=== PATIENT | female | born 1965 | race Caucasian/White ===

== ENCOUNTER 2019-05-14 12:47 | Day surgery (SDC) | payer MEDICARE, MEDICAID, SELFPAY ==
[2019-05-09 11:18] VITALS: BMI 60.9
--- NOTE | 2019-05-09 11:30 | ANES.PREANE2 ---
Pre-Anesthetic Assessment Pre-Anesthetic Assessment: Height/Weight: Height 1.6 m Weight 156.036 kg Preop Diagnosis: screening colonscopy Proposed Procedure: Operation Date: 05/14/19 12:45 Proposed Procedures p Colonoscopy 33403 Z86.010(Not Applicable) - Henry Jara MD Social: Packs per day: 1 Pack years: 30 Comment: quit 1 month Exam: Pre-Anes Outpt Exam: alert, oriented x 3, clear to auscultation bilaterally and regular rate & rhythm Airway: Submandibular: WNL Cervical ROM: Other MP: 3 Additional comments: 2 remaining teeth Pulmonary: Pulmonary: COPD and Sleep apnea : Comments: frequency, urgency Metabolic: Metabolic: DM and Morbid obesity Comments: rx'd x 2months Anesthetic Plan: ASA status: 3 Anesthesia: MAC PFSH Anesthesia PFSH: Social History Smoking and tobacco status: former smoker Second hand smoke exposure: No Smoking risk assessment/counseling performed?: No Alcohol intake: never Desire information about substance/drug rehabilitation?: No Counseling given: No Marital status: Data Anesthesia Cardiac Studies: No Data to Display
[2019-05-14 13:03] VITALS: BP 153/110; PULSE 94; RESP 16; TEMP 37.3; O2SAT 95
[2019-05-14 13:08] VITALS: BP 167/101
[2019-05-14 13:17] LABS: Glucose Point of Care 98 mg/dL (70-110)
[2019-05-14] MEDS: sodium chloride 0.9% 1,000 ML 30 ML IV (13:18)
--- NOTE | 2019-05-14 14:17 | P.ANESUD_ITS ---
Pre-Anesthetic Update Pre-Anesthetic Assessment: Date of Surgery/Procedure: 05/14/19 Preop Kassie gnosis: History of colon polyps Proposed Procedure: Operation Date: 05/14/19 14:15 Proposed Procedures p Colonoscopy(Not Applicable) - Henry Jara MD Last Intake: Intake Last Liquid Date 05/13/19 Last Liquid Time 19:00 Last Solid Date 05/12/19 Last Solid Time 17:00 Labs Last 48hrs: Laboratory Results - last 48 hr 05/14/19 13:11 POC Glucose 98 Vitals: Temperature 99.2 F 05/14/19 13:03 Temperature Source Temporal Artery S can 05/14/19 13:03 Pulse Rate 94 05/14/19 13:03 Respiratory Rate 16 05/14/19 13:03 Blood Pressure 167/101 05/14/19 13:08 Blood Pressure Shani n 123 05/14/19 13:08 Pulse Oximetry 95 05/14/19 13:03 Oxygen Delivery Me thod 05/14/19 13:03 Exam: Pre-Anes Outpt Exam: alert, oriented x 3, clear to auscultation bilaterally (lung sounds distant) and regular rate & rhythm Cardiac Studies: No Data to Display
--- NOTE | 2019-05-14 15:06 | W.PM.OPSUD ---
Surgery/Procedure H&P Update DATE OF PROCEDURE: May 14, 2019 DATE H&P PERFORMED: 04/25/19 H&P UPDATE INFORMATION: I have reviewed H&P completed within last 30 days, I have examined patient prior to procedure and No changes to prior documentation PREOP DIAGNOSIS: History of colon polyps PRIMARY INDICATION FOR PROCEDURE: The same PLANNED PROCEDURE: Operation Date: 05/14/19 14:15 Proposed Procedures p Colonoscopy(Not Applicable) - Henry Jara MD
[2019-05-14 16:05] VITALS: BP 143/94; PULSE 102; RESP 14; TEMP 36.1; O2SAT 98
[2019-05-14 16:15] VITALS: BP 152/98; PULSE 93; RESP 18; O2SAT 96
== END 2019-05-14 16:30 | disposition home or self-care (01) ==
PROVIDERS: Family Provider Family Medicine; PCP Family Medicine; Visit Provider Surgery
PROC: 0DJD8ZZ Inspection of Lower Intestinal Tract, Via Natural or Artificial Opening Endoscopic (ICD-10-PCS; CPT 45378; principal; 2019-05-14 14:15)
DX: Z12.11 Encounter for screening for malignant neoplasm of colon (principal); D12.5 Benign neoplasm of sigmoid colon; Z86.010 Personal history of colon polyps; E66.01 Morbid (severe) obesity due to excess calories; Z68.44 Body mass index [BMI] 60.0-69.9, adult; Z79.84 Long term (current) use of oral hypoglycemic drugs; J44.9 Chronic obstructive pulmonary disease, unspecified; E11.9 Type 2 diabetes mellitus without complications; I10 Essential (primary) hypertension; G47.30 Sleep apnea, unspecified
CPT/HCPCS: 45385; 12345; 36416; 82962; 88305; J2704; J7030

== ENCOUNTER 2019-05-19 11:32 | Emergency (ER) | payer MEDICARE, MEDICAID, SELFPAY ==
--- NOTE | 2019-05-19 11:37 | XR_ITS ---
WS: [id number] XR chest 2V* [id number] REASON FOR EXAM: cough FINDINGS: Comparison is made to February 25, 2016. The heart and mediastinal interfaces are normal. The lung lawrence are clear there is no pneumonia, pleural effusion, pulmonary edema, or mass effect. The hilum and apices are normal. Degenerate changes of the thoracic spine. XR/XR chest 2V* [id number] IMPRESSION: No active cardiopulmonary disease.
[2019-05-19 12:36] VITALS: BP 155/104; PULSE 102; RESP 18; TEMP 36.9; O2SAT 92; BMI 60.9
--- NOTE | 2019-05-19 12:46 | ED_ITS ---
HPI - General Adult General: Chief complaint: Upper Respiratory Infection Stated complaint: FEVER, COUGH H/A Time Seen by Provider: 05/19/19 12:40 History of Present Illness: HPI narrative: Patient with sinus tenderness and upper respiratory drainage. Left ear pain has had a cough for the last 3 to 4 days. Is on BiPAP at home. Sats when off BiPAP normally run about 90% which she is doing here. Planes about sinus pressure denies any other problems. Hist ory of multiple upper respiratory infections MD complaint: Sinus infection Onset (ago): day(s) (3) Associated symptoms: Reports cough; Deny chest pain, dyspnea, fevers/chills, headache(s), nausea, rash, short of breath or vomiting Review of Systems Const: Denies: fever, chills or body aches Eyes: Denies: change in vision or blurry vision ENMT: Reports: nasal congestion and other (Sinus pressure); Denies: throat pain Card: Denies: chest pain Resp: Denies: shortness of breath, productive cough or non-productive cough GI: Denies: abdominal pain, nausea or vomiting Musc: Denies: extremity pain Skin/Breast: Denies: rash Neuro: Denies: headache Psych: Denies: anxiety or depression Jaswant/Lymph: Denies: easy bruising PFSH ED PFSH: Social History Smoking and tobacco status: former smoker Second hand smoke exposure: No Smoking risk assessment/counseling performed?: No Alcohol intake: never Desire information about substance/drug rehabilitation?: No Counseling given: No Marital status: Physical Exam Const: COMMON NORMALS: no apparent distress, average body habitus and oriented x3 HENMT: COMMON NORMALS: normocephalic and TM's normal bilaterally HEAD & SCALP: normal to inspection and normocephalic FACE & SINUS: sinus tenderness and other TYMPANIC MEMBRANE: TM's normal bilaterally Eye: COMMON NORMALS: conjunctivae normal GENERAL EYE: normal appearance of both eyes CONJUNCTIVA: Yes conjunctivae normal Neck/C-Spine: COMMON NORMALS: no JVD Chest: COMMONS NORMALS: inspection of chest normal Resp: COMMON NORMALS: normal respiratory effort and clear to auscultation bilaterally AUSCULTATION: clear to auscultation bilaterally Cardio: COMMON NORMALS: no JVD, regular rate and regular rhythm RATE: regular rate RHYTHM: regular rhythm GI: COMMON NORMALS: normal to inspection, nondistended, normoactive bowel sounds Extremity: COMMON NORMALS: normal to inspection and full ROM Neuro: COMMON NORMALS: oriented x3 Course Vital Signs: Vital signs: Vital Signs Temperature 98.4 F 05/19/19 12:36 Pulse Rate 102 H 05/19/19 12:36 Respiratory Rate 18 05/19/19 12:36 Blood Pressure 155/104 05/19/19 12:36 Pulse Oximetry 92 05/19/19 12:36 Discharge Plan Discharge Prescriptions: No Action aripiprazole 15 mg tablet 15 mg PO QDAY RF: 0 duloxetine 60 mg capsule,delayed release(DR/EC) 60 mg PO BID RF: 0 clonazepam [Klonopin] 0.5 mg tablet 0.5 mg PO QDAY RF: 0 metformin 500 mg tablet 500 mg PO QDAY RF: 0 albuterol sulfate [Ventolin HFA] 90 mcg/actuation HFA aerosol inhaler 2 puff INHALATION Q4H PRN (Reason: soa) RF: 0 zonisamide 100 mg capsule 300 mg PO QDAY RF: 0 buspirone 7.5 mg tablet See Rx Instructions PO BID RF: 0 naproxen 500 mg tablet 500 mg PO BID PRN (Reason: Pain) RF: 0 Coding Level of Care Code ED Jewelry Salesperson for Jasmine Pollock
[2019-05-19] MEDS: sulfamethoxazole-trimeth DS 160-800 mg Tablet 1 TAB PO (13:03)
[2019-05-19 13:17] LABS: Influenza A by IFA Negative (Negative); Influenza B by IFA Negative (Negative)
[2019-05-19 13:31] VITALS: BP 150/103; PULSE 91; RESP 20; O2SAT 93
== END 2019-05-19 13:32 | disposition home or self-care (01) ==
PROVIDERS: Emergency Medicine; Emergency Provider Nurse Practitioner Family; Family Provider Family Medicine; PCP Family Medicine
DX: J06.9 Acute upper respiratory infection, unspecified (principal); R50.9 Fever, unspecified; R05 Cough; R51 Headache; H92.02 Otalgia, left ear; R09.81 Nasal congestion; Z87.891 Personal history of nicotine dependence; Z99.89 Dependence on other enabling machines and devices
CPT/HCPCS: 71046; 87804; 99282; 99283

== ENCOUNTER → 2019-07-22 07:57 | Outpatient (BNVA) | payer MEDICARE, MEDICAID, SELFPAY | PROVIDERS: Family Provider Family Medicine; PCP Family Medicine; Visit Provider Psychiatry & Neurology Psychiatry | DX: F41.1 Generalized anxiety disorder (principal); F33.9 Major depressive disorder, recurrent, unspecified; F41.0 Panic disorder [episodic paroxysmal anxiety]; E55.9 Vitamin D deficiency, unspecified | CPT/HCPCS: 99205 ==

== ENCOUNTER → 2019-08-06 08:21 | Outpatient (BNVA) | payer MEDICARE, MEDICAID, SELFPAY | PROVIDERS: Family Provider Family Medicine; PCP Family Medicine; Visit Provider Social Worker | DX: F41.1 Generalized anxiety disorder (principal); F41.0 Panic disorder [episodic paroxysmal anxiety] | CPT/HCPCS: 90832 ==

== ENCOUNTER → 2019-08-12 08:33 | Outpatient (BNVA) | payer MEDICARE, MEDICAID, SELFPAY | PROVIDERS: Family Provider Family Medicine; PCP Family Medicine; Visit Provider Social Worker | DX: F33.9 Major depressive disorder, recurrent, unspecified (principal); F41.1 Generalized anxiety disorder; F41.0 Panic disorder [episodic paroxysmal anxiety]; F43.12 Post-traumatic stress disorder, chronic | CPT/HCPCS: 90834 ==

== ENCOUNTER → 2019-08-20 08:23 | Outpatient (BNVA) | payer MEDICARE, MEDICAID, SELFPAY | PROVIDERS: Family Provider Family Medicine; PCP Family Medicine; Visit Provider Psychiatry & Neurology Psychiatry | DX: F41.1 Generalized anxiety disorder (principal); F43.10 Post-traumatic stress disorder, unspecified; G31.84 Mild cognitive impairment of uncertain or unknown etiology; E55.9 Vitamin D deficiency, unspecified; F41.0 Panic disorder [episodic paroxysmal anxiety]; F33.9 Major depressive disorder, recurrent, unspecified; G47.30 Sleep apnea, unspecified | CPT/HCPCS: 99215 ==

== ENCOUNTER 2019-08-21 09:57 | Outpatient (CLI) | payer MEDICARE, MEDICAID, SELFPAY ==
[2019-08-21 10:28] LABS: Basophils # 0.1 10^3/uL (0.0-0.1); Basophils % 0.9 %; Eosinophils # 0.4 10^3/uL (0.0-0.8); Eosinophils % 4.6 %; Hematocrit 44.2 % (37.0-47.0); Hemoglobin 13.1 g/dL (11.5-15.3); Lymphocytes # 3.2 10^3/uL (0.8-4.8); Lymphocytes % 35.7 %; Mean Corpuscular HGB Conc 29.6 g/dL (30.0-36.0); Mean Corpuscular Hemoglobin 27.9 pg (28.0-34.0); Mean Corpuscular Volume 94.2 fL (81-99); Mean Platelet Volume 10.8 fL (7.4-10.4); Monocytes # 0.6 10^3/uL (0.2-0.9); Monocytes % 6.8 %; Neutrophils # 4.6 10^3/uL (1.8-7.7); Neutrophils % 51.6 %; Nucleated Red Blood Cells % 0 %; Platelet Count 208 10^3/cmm (130-400); Red Blood Count 4.69 10^6/uL (4.1-5.3); White Blood Count 8.9 10^3/uL (4.0-10.0)
[2019-08-21 11:05] LABS: 25 Hydroxy Vitamin D 25 ng/mL (30-100); Alanine Aminotransferase 18 U/L (0-33); Albumin Level 3.4 g/dL (3.5-5.2); Alkaline Phosphatase 109 IU/L (35-105); Anion Gap 15.3 (5-19); Aspartate Amino Transferase 16 U/L (0-32); Blood Urea Nitrogen 15 mg/dL (6-20); Calcium 9.8 mg/dL (8.5-10.5); Carbon Dioxide 22 mmol/L (22-29); Chloride 102 mmol/L (98-107); Chol HDL Ratio 4.41 mg/dL (0.0-4.40); Cholesterol 181 mg/dL (0-200); Glomerular Filtration Rate 57.4 mL/min (90-130); Glucose 101 mg/dL (65-115); HDL Cholesterol 41 mg/dL (60-100); LDL Cholesterol Calculated 114 mg/dL (50-129); LDL HDL Ratio 2.78 RATIO (0.00-3.22); Magnesium 2.2 mg/dL (1.7-2.3); Osmolality Calculated 276 mOsm/kg (285-295); Potassium 4.3 mmol/L (3.5-5.1); Sodium 135 mmol/L (136-145); Thyroid Stimulating Hormone 4.44 uIU/mL (0.27-4.20); Total Bilirubin 0.2 mg/dL (0.15-1.2); Total Protein 7.4 g/dL (6.6-8.7); Triglycerides 128 mg/dL (0-150)
[2019-08-21 11:49] LABS: T3 Free 2.2 PG/ML (2.0-4.4)
[2019-08-22 10:12] LABS: T3 Total 103 ng/dL (76-181)
[2019-08-24 21:01] LABS: Zinc Level, Serum or Plasma 78 mcg/dL (60-130)
[2019-08-25 10:06] LABS: Copper Level 149 mcg/dL (70-175)
== END 2019-08-21 09:58 | disposition home or self-care (01) ==
LOC: LAB 10:02
PROVIDERS: PCP Family Medicine; Visit Provider Psychiatry & Neurology Psychiatry
DX: G31.84 Mild cognitive impairment of uncertain or unknown etiology (principal); E55.9 Vitamin D deficiency, unspecified; F43.10 Post-traumatic stress disorder, unspecified; F41.1 Generalized anxiety disorder; F41.0 Panic disorder [episodic paroxysmal anxiety]; F33.9 Major depressive disorder, recurrent, unspecified; G47.30 Sleep apnea, unspecified
CPT/HCPCS: 36415; 80053; 80061; 82306; 82525; 82746; 83735; 84439; 84443; 84480; 84481; 84630; 85025

== ENCOUNTER → 2019-08-26 08:16 | Outpatient (BNVA) | payer MEDICARE, MEDICAID, SELFPAY | PROVIDERS: PCP Family Medicine; Visit Provider Social Worker | DX: F33.9 Major depressive disorder, recurrent, unspecified (principal); F41.1 Generalized anxiety disorder; F41.0 Panic disorder [episodic paroxysmal anxiety]; F43.12 Post-traumatic stress disorder, chronic | CPT/HCPCS: 90834 ==

== ENCOUNTER → 2019-09-06 08:15 | Outpatient (BNVA) | payer MEDICARE, MEDICAID, SELFPAY | PROVIDERS: PCP Family Medicine; Visit Provider Psychiatry & Neurology Psychiatry | DX: F33.1 Major depressive disorder, recurrent, moderate (principal); F41.1 Generalized anxiety disorder; G47.00 Insomnia, unspecified | CPT/HCPCS: 99215 ==

== ENCOUNTER → 2019-10-08 07:52 | Outpatient (BNVA) | payer MEDICARE, MEDICAID, SELFPAY | PROVIDERS: PCP Family Medicine; Visit Provider Nurse Practitioner | DX: F33.9 Major depressive disorder, recurrent, unspecified (principal); F41.1 Generalized anxiety disorder; F41.0 Panic disorder [episodic paroxysmal anxiety]; F43.12 Post-traumatic stress disorder, chronic | CPT/HCPCS: 99204 ==

== ENCOUNTER → 2019-10-24 07:33 | Outpatient (BNVA) | payer MEDICARE, MEDICAID, SELFPAY | PROVIDERS: PCP Family Medicine; Visit Provider Nurse Practitioner | DX: F41.1 Generalized anxiety disorder (principal); F41.0 Panic disorder [episodic paroxysmal anxiety]; F33.9 Major depressive disorder, recurrent, unspecified; F33.2 Major depressive disorder, recurrent severe without psychotic features | CPT/HCPCS: 99214 ==

== ENCOUNTER → 2019-11-21 07:07 | Outpatient (BNVA) | payer MEDICARE, MEDICAID, SELFPAY | PROVIDERS: PCP Family Medicine; Visit Provider Nurse Practitioner | DX: F33.9 Major depressive disorder, recurrent, unspecified (principal); F41.1 Generalized anxiety disorder; F41.0 Panic disorder [episodic paroxysmal anxiety] | CPT/HCPCS: 99213 ==

== ENCOUNTER → 2020-01-08 07:49 | Outpatient (BNVA) | payer MEDICARE, MEDICAID, SELFPAY ==
[2019-12-11 11:57] VITALS: BP 106/60; BMI 63.9
== END ==
PROVIDERS: PCP Family Medicine; Visit Provider Nurse Practitioner
DX: F33.9 Major depressive disorder, recurrent, unspecified (principal); F41.1 Generalized anxiety disorder; F41.0 Panic disorder [episodic paroxysmal anxiety]
CPT/HCPCS: 99214

== ENCOUNTER → 2020-02-05 07:37 | Outpatient (BNVA) | payer MEDICARE, MEDICAID, SELFPAY ==
[2019-12-11 11:57] VITALS: BP 106/60; BMI 63.9
== END ==
PROVIDERS: PCP Family Medicine; Visit Provider Nurse Practitioner
DX: F33.9 Major depressive disorder, recurrent, unspecified (principal); F41.1 Generalized anxiety disorder; F41.0 Panic disorder [episodic paroxysmal anxiety]
CPT/HCPCS: 99213

== ENCOUNTER 2020-04-27 10:28 | Outpatient (CLI) | payer MEDICARE, MEDICAID, SELFPAY ==
[2019-12-11 11:57] VITALS: BP 106/60; BMI 63.9
--- NOTE | 2020-04-27 10:36 | MM_ITS ---
WS: [id number] BILATERAL DIGITAL SCREENING MAMMOGRAPHY WITH CAD CLINICAL INFORMATION: SCREENING HISTORY: Screening mammogram. No current complaints. COMPARISON: TECHNIQUE: Bilateral CC and MLO views. FINDINGS: Scattered fibroglandular densities bilaterally. No suspicious focal mass, asymmetry, calcifications, or architectural distortion. No evidence of malignancy. Punctate calcifications. MM/[place] [id number] IMPRESSION: BI-RADS: 2-Benign FOLLOW UP: 1 Year Follow-up Recommend return to annual screening mammography.
== END 2020-04-27 10:29 | disposition home or self-care (01) ==
PROVIDERS: PCP Family Medicine; Visit Provider Family Medicine
DX: Z12.31 Encounter for screening mammogram for malignant neoplasm of breast (principal)
CPT/HCPCS: 77067

== ENCOUNTER → 2020-05-04 07:57 | Outpatient (BNVA) | payer MEDICARE, MEDICAID, SELFPAY ==
[2019-12-11 11:57] VITALS: BP 106/60; BMI 63.9
== END ==
PROVIDERS: PCP Family Medicine; Visit Provider Nurse Practitioner
DX: F33.9 Major depressive disorder, recurrent, unspecified (principal); F41.1 Generalized anxiety disorder; F41.0 Panic disorder [episodic paroxysmal anxiety]
CPT/HCPCS: 99214

== ENCOUNTER → 2020-05-28 11:44 | Outpatient (BNVA) | payer OTHER, MEDICAID, SELFPAY ==
[2019-12-11 11:57] VITALS: BP 106/60; BMI 63.9
== END ==
PROVIDERS: PCP Family Medicine; Visit Provider Internal Medicine
DX: R76.8 Other specified abnormal immunological findings in serum (principal); M25.50 Pain in unspecified joint; Z11.59 Encounter for screening for other viral diseases; Z79.899 Other long term (current) drug therapy; Z87.891 Personal history of nicotine dependence
CPT/HCPCS: 99214

== ENCOUNTER 2020-06-03 10:29 | Outpatient (CLI) | payer MEDICARE, MEDICAID, SELFPAY ==
[2019-12-11 11:57] VITALS: BP 106/60; BMI 63.9
--- NOTE | 2020-06-03 10:46 | XR_ITS ---
WS: [id number] Left foot, 2 views, 06/03/2020 Clinical Data: M25.50 - Pain in unspecified joint Comparison: None. Findings: No fractures or dislocations are seen. No bone destruction or erosion is noted. There is a small buni on at the head of the left first metatarsal.There is a plantar spur and an Achilles spur. XR/XR foot LT 2V [id number] Impression: Small bunion at head of left first metatarsal.
--- NOTE | 2020-06-03 10:46 | XR_ITS ---
WS: [id number] Right hand, 2 views, 06/03/2020 Clinical Data: R76.8 - Other specified abnormal immunological findings in serum Comparison: None. Findings: No fractures or dislocations are seen. The soft tissues are unremarkable. The joint space s are normal No periarticular calcifications or demineralization is seen. XR/XR hand RT 2V [id number] Impression: Negative right hand.
--- NOTE | 2020-06-03 10:46 | XR_ITS ---
WS: [id number] Right foot, 2 views, 06/03/2020 Clinical Data: M25.50 - Pain in unspecified joint Comparison: None. Findings: No fractures or dislocations are seen. No bone destruction or erosion is noted. The joint spaces and soft tissues are normal. There is a plantar spur and an Achilles spur. XR/XR foot RT 2V [id number] Impression: Negative right foot.
--- NOTE | 2020-06-03 10:46 | XR_ITS ---
WS: [id number] Left hand, 2 views, 06/03/2020 Clinical Data: R76.8 - Other specified abnormal immunological findings in serum Comparison: Left hand, 02/10/2009. Findings: No fractures or dislocations are seen. The soft tissues are unremarkable. The joint spaces are normal No periarticular demineralization or calcifications are seen. XR/XR hand LT 2V [id number] Impression: Negative left hand.
[2020-06-03 12:17] LABS: Basophils # 0.1 10^3/uL (0.0-0.1); Eosinophils # 0.4 10^3/uL (0.0-0.8); Eosinophils % 3.5 %; Hematocrit 46.1 % (37.0-47.0); Hemoglobin 13.7 g/dL (11.5-15.3); Lymphocytes # 2.5 10^3/uL (0.8-4.8); Lymphocytes % 20.2 %; Mean Corpuscular HGB Conc 29.7 g/dL (30.0-36.0); Mean Corpuscular Hemoglobin 29.1 pg (28.0-34.0); Mean Corpuscular Volume 98.1 fL (81-99); Mean Platelet Volume 10.5 fL (7.4-10.4); Monocytes # 0.7 10^3/uL (0.2-0.9); Monocytes % 5.7 %; Neutrophils # 8.54 10^3/uL (1.8-7.7); Neutrophils % 68.9 %; Nucleated Red Blood Cells % 0 %; Platelet Count 282 10^3/cmm (130-400); Red Cell Distribution Width 14.8 % (12.1-15.1); White Blood Count 12.4 10^3/uL (4.0-10.0)
[2020-06-03 12:52] LABS: Alanine Aminotransferase 21 U/L (0-33); Albumin Level 3.3 g/dL (3.5-5.2); Alkaline Phosphatase 100 IU/L (35-105); Blood Urea Nitrogen 10 mg/dL (6-20); C Reactive Protein 27.9 mg/L (0.0-4.9); Calcium 9.3 mg/dL (8.5-10.5); Carbon Dioxide 29 mmol/L (22-29); Chloride 105 mmol/L (98-107); Globulin 3.6 g/dL (1.3-4.6); Glomerular Filtration Rate 73.9 mL/min (90-130); Glucose 114 mg/dL (65-115); Osmolality Calculated 292 mOsm/kg (285-295); Sodium 141 mmol/L (136-145); Total Bilirubin 0.2 mg/dL (0.15-1.2); Total Protein 6.9 g/dL (6.6-8.7)
[2020-06-03 12:56] LABS: Anion Gap 11.6 (5-19); Potassium 4.6 mmol/L (3.5-5.1)
[2020-06-03 12:57] LABS: Aspartate Amino Transferase 18 U/L (0-32)
[2020-06-03 13:23] LABS: Erythrocyte Sedimentation Rate 45 mm/hr (0-15)
[2020-06-03 14:15] LABS: Hepatitis B Core AB, Total Non-Reactive (Nonreactive); Hepatitis B Surface Antigen Non-Reactive (Nonreactive); Hepatitis C Virus Antibody Non-Reactive (Nonreactive)
[2020-06-04 13:42] LABS: Cyclic Citrullinated Peptide <16 UNITS
== END 2020-06-03 10:30 | disposition home or self-care (01) ==
PROVIDERS: PCP Family Medicine; Visit Provider Internal Medicine
DX: M25.50 Pain in unspecified joint (principal); R76.8 Other specified abnormal immunological findings in serum; Z51.81 Encounter for therapeutic drug level monitoring; D86.9 Sarcoidosis, unspecified; Z11.59 Encounter for screening for other viral diseases
CPT/HCPCS: 36415; 73120; 73620; 80053; 85025; 85651; 86140; 86431; 86704; 86803; 87340

== ENCOUNTER → 2020-07-29 08:00 | Outpatient (BNVA) | payer MEDICARE, MEDICAID, SELFPAY ==
[2019-12-11 11:57] VITALS: BP 106/60; BMI 63.9
== END ==
PROVIDERS: PCP Family Medicine; Visit Provider Nurse Practitioner
DX: F33.9 Major depressive disorder, recurrent, unspecified (principal); F41.1 Generalized anxiety disorder; F41.0 Panic disorder [episodic paroxysmal anxiety]
CPT/HCPCS: 99214

== ENCOUNTER → 2020-10-21 07:09 | Outpatient (BNVA) | payer MEDICARE, MEDICAID, SELFPAY ==
[2019-12-11 11:57] VITALS: BP 106/60; BMI 63.9
== END ==
PROVIDERS: PCP Family Medicine; Visit Provider Nurse Practitioner
DX: F33.9 Major depressive disorder, recurrent, unspecified (principal); F41.1 Generalized anxiety disorder; F41.0 Panic disorder [episodic paroxysmal anxiety]
CPT/HCPCS: 99214

== ENCOUNTER → 2020-11-04 10:24 | Outpatient (BNVA) | payer MEDICARE, MEDICAID, SELFPAY ==
[2019-12-11 11:57] VITALS: BP 106/60; BMI 63.9
== END ==
PROVIDERS: PCP Family Medicine; Visit Provider Internal Medicine
DX: M05.9 Rheumatoid arthritis with rheumatoid factor, unspecified (principal); M25.50 Pain in unspecified joint; R70.0 Elevated erythrocyte sedimentation rate; R76.8 Other specified abnormal immunological findings in serum; Z79.899 Other long term (current) drug therapy
CPT/HCPCS: 36415; 80053; 85025; 86140

== ENCOUNTER → 2020-11-11 10:13 | Outpatient (BNVA) | payer MEDICARE, MEDICAID, SELFPAY ==
[2019-12-11 11:57] VITALS: BP 106/60; BMI 63.9
== END ==
PROVIDERS: PCP Family Medicine; Visit Provider Internal Medicine
DX: M05.9 Rheumatoid arthritis with rheumatoid factor, unspecified (principal); R70.0 Elevated erythrocyte sedimentation rate; Z87.891 Personal history of nicotine dependence
CPT/HCPCS: 99214

== ENCOUNTER → 2020-12-02 07:20 | Outpatient (BNVA) | payer MEDICARE, MEDICAID, SELFPAY ==
[2019-12-11 11:57] VITALS: BP 106/60; BMI 63.9
== END ==
PROVIDERS: PCP Family Medicine; Visit Provider Nurse Practitioner
DX: F33.9 Major depressive disorder, recurrent, unspecified (principal); F41.1 Generalized anxiety disorder; F41.0 Panic disorder [episodic paroxysmal anxiety]
CPT/HCPCS: 99214

== ENCOUNTER → 2021-04-01 07:39 | Outpatient (BNVA) | payer MEDICARE, MEDICAID, SELFPAY ==
[2019-12-11 11:57] VITALS: BP 106/60; BMI 63.9
== END ==
PROVIDERS: PCP Family Medicine; Visit Provider Nurse Practitioner
DX: F33.9 Major depressive disorder, recurrent, unspecified (principal); F41.1 Generalized anxiety disorder; F41.0 Panic disorder [episodic paroxysmal anxiety]
CPT/HCPCS: 99214

== ENCOUNTER 2021-04-17 11:41 | Outpatient (CLI) | payer MEDICARE, MEDICAID, SELFPAY ==
[2019-12-11 11:57] VITALS: BP 106/60; BMI 63.9
[2021-04-17 12:54] LABS: Basophils # 0.1 10^3/uL (0.0-0.1); Basophils % 1.1 %; Eosinophils # 0.4 10^3/uL (0.0-0.8); Eosinophils % 4.8 %; Hematocrit 46.2 % (37.0-47.0); Hemoglobin 14.1 g/dL (11.5-15.3); Lymphocytes # 2.2 10^3/uL (0.8-4.8); Mean Corpuscular HGB Conc 30.5 g/dL (30.0-36.0); Mean Corpuscular Hemoglobin 29.5 pg (28.0-34.0); Mean Corpuscular Volume 96.7 fl (81-99); Mean Platelet Volume 11.3 fL (7.4-10.4); Monocytes # 0.5 10^3/uL (0.2-0.9); Monocytes % 6.5 %; Neutrophils % 60.9 %; Nucleated Red Blood Cells % 0 %; Platelet Count 198 10^3/cmm (130-400); Red Blood Count 4.78 10^6/uL (4.1-5.3); Red Cell Distribution Width 14.6 % (12.1-15.1); White Blood Count 8.4 10^3/uL (4.0-10.0)
[2021-04-17 13:17] LABS: Erythrocyte Sedimentation Rate 42 mm/hr (0-15)
[2021-04-17 13:18] LABS: Alanine Aminotransferase 16 U/L (0-33); Albumin Level 3.7 g/dL (3.5-5.2); Alkaline Phosphatase 87 IU/L (35-105); Aspartate Amino Transferase 12 U/L (0-32); Blood Urea Nitrogen 12 mg/dL (6-20); C Reactive Protein 19.7 mg/L (0.0-4.9); Calcium 8.6 mg/dL (8.5-10.5); Carbon Dioxide 27 mmol/L (22-29); Chloride 103 mmol/L (98-107); Glomerular Filtration Rate 56.9 mL/min (90-130); Glucose 90 mg/dL (65-115); Osmolality Calculated 289 mOsm/kg (285-295); Sodium 140 mmol/L (136-145); Total Bilirubin 0.2 mg/dL (0.15-1.2); Total Protein 6.7 g/dL (6.6-8.7)
== END 2021-04-17 11:42 | disposition home or self-care (01) ==
PROVIDERS: PCP Family Medicine; Visit Provider Internal Medicine
DX: M05.9 Rheumatoid arthritis with rheumatoid factor, unspecified (principal); M25.50 Pain in unspecified joint; R76.8 Other specified abnormal immunological findings in serum; Z79.899 Other long term (current) drug therapy
CPT/HCPCS: 80053; 85025; 85651; 86140

== ENCOUNTER → 2021-04-28 10:32 | Outpatient (BNVA) | payer MEDICARE, MEDICAID, SELFPAY ==
[2019-12-11 11:57] VITALS: BP 106/60; BMI 63.9
== END ==
PROVIDERS: PCP Family Medicine; Visit Provider Internal Medicine
DX: M05.9 Rheumatoid arthritis with rheumatoid factor, unspecified (principal); R70.0 Elevated erythrocyte sedimentation rate; Z11.1 Encounter for screening for respiratory tuberculosis; Z87.891 Personal history of nicotine dependence
CPT/HCPCS: 99214

== ENCOUNTER 2021-05-15 11:40 | Outpatient (CLI) | payer MEDICARE, MEDICAID, SELFPAY ==
[2019-12-11 11:57] VITALS: BP 106/60; BMI 63.9
[2021-05-18 13:33] LABS: Quantiferon Mitogen 8.76 IU/mL; Quantiferon Nil 0.17 IU/mL; Quantiferon Plus TB1 0.13 IU/mL; Quantiferon TB Gold NEGATIVE (NEGATIVE)
== END 2021-05-15 11:41 | disposition home or self-care (01) ==
PROVIDERS: PCP Family Medicine; Visit Provider Internal Medicine
DX: M05.9 Rheumatoid arthritis with rheumatoid factor, unspecified (principal); M25.50 Pain in unspecified joint; R70.0 Elevated erythrocyte sedimentation rate; Z11.1 Encounter for screening for respiratory tuberculosis
CPT/HCPCS: 36415; 86480

== ENCOUNTER → 2021-06-16 07:48 | Outpatient (BNVA) | payer MEDICARE, MEDICAID, SELFPAY ==
[2019-12-11 11:57] VITALS: BP 106/60; BMI 63.9
== END ==
PROVIDERS: PCP Family Medicine; Visit Provider Nurse Practitioner
DX: F33.9 Major depressive disorder, recurrent, unspecified (principal); F41.1 Generalized anxiety disorder; F41.0 Panic disorder [episodic paroxysmal anxiety]
CPT/HCPCS: 99214

== ENCOUNTER 2021-07-15 09:26 | Outpatient (CLI) | payer MEDICARE, MEDICAID, SELFPAY ==
[2019-12-11 11:57] VITALS: BP 106/60; BMI 63.9
[2021-07-15 10:34] LABS: Albumin Level 3.9 g/dL (3.5-5.2); Alkaline Phosphatase 96 IU/L (35-105); Blood Urea Nitrogen 9 mg/dL (6-20); Calcium 9.5 mg/dL (8.5-10.5); Carbon Dioxide 26 mmol/L (22-29); Chloride 102 mmol/L (98-107); Globulin 3.4 g/dL (1.3-4.6); Glomerular Filtration Rate 73.7 mL/min (90-130); Glucose 107 mg/dL (65-115); Osmolality Calculated 285 mOsm/kg (285-295); Sodium 138 mmol/L (136-145); Total Bilirubin 0.3 mg/dL (0.15-1.2); Total Protein 7.3 g/dL (6.6-8.7)
[2021-07-15 10:37] LABS: Anion Gap 14.4 (5-19); Aspartate Amino Transferase 28 U/L (0-32); Potassium 4.4 mmol/L (3.5-5.1)
[2021-07-15 10:38] LABS: Alanine Aminotransferase 32 U/L (0-33)
== END 2021-07-15 09:27 | disposition home or self-care (01) ==
PROVIDERS: PCP Family Medicine; Visit Provider Internal Medicine
DX: M05.9 Rheumatoid arthritis with rheumatoid factor, unspecified (principal); R76.8 Other specified abnormal immunological findings in serum; Z79.899 Other long term (current) drug therapy
CPT/HCPCS: 80053; 85025; 86140

== ENCOUNTER → 2021-07-19 13:30 | Outpatient (BNVA) | payer MEDICARE, MEDICAID, SELFPAY ==
[2019-12-11 11:57] VITALS: BP 106/60; BMI 63.9
== END ==
PROVIDERS: PCP Family Medicine; Visit Provider Internal Medicine
DX: M05.9 Rheumatoid arthritis with rheumatoid factor, unspecified (principal); R79.82 Elevated C-reactive protein (CRP); R70.0 Elevated erythrocyte sedimentation rate; R76.8 Other specified abnormal immunological findings in serum; Z79.899 Other long term (current) drug therapy; Z87.891 Personal history of nicotine dependence
CPT/HCPCS: 99213; 99214

== ENCOUNTER 2021-09-02 10:20 | Outpatient (CLI) | payer MEDICARE, MEDICAID, SELFPAY ==
[2019-12-11 11:57] VITALS: BP 106/60; BMI 63.9
--- NOTE | 2021-09-02 10:37 | MM_ITS ---
WS: [id number] VIEWS: MLO and CC views both breasts. 3D digital tomosynthesis is also included in this exam. Comparison made with prior exam of 07/28/2014, 07/31/2015, 08/23/2016, 03/07/2019, 04/27/2020.. Findings: No discrete mass, architectural distortion or suspicious calcification identified. Significant skin t hickening and edema along the lateral aspect of the right breast seen best on the cc view. This may r epresent inflammatory or infectious process however inflammatory breast cancer could have this appear ance. Careful physical examination of this area would be indicated. If the patient does not respond t o conservative management after a short trial then skin biopsy may be necessary for definitive evalua tion. The left breast was unremarkable.The breasts are fatty. MM/[place] [id number] Impression: BI-RADS: 0-Incomplete: Need additional imaging evaluation FOLLOW-UP: See Report This mammogram was also analyzed by the Computer Aided Detection System R2 Imag e Engraver Tender.
== END 2021-09-02 10:21 | disposition home or self-care (01) ==
LOC: RAD 10:24
PROVIDERS: PCP Family Medicine; Visit Provider Family Medicine
DX: Z12.31 Encounter for screening mammogram for malignant neoplasm of breast (principal)
CPT/HCPCS: 77063; 77067

== ENCOUNTER → 2021-09-16 10:39 | Outpatient (BNVA) | payer MEDICARE, MEDICAID, SELFPAY ==
[2019-12-11 11:57] VITALS: BP 106/60; BMI 63.9
== END ==
PROVIDERS: PCP Family Medicine; Visit Provider Nurse Practitioner
DX: F41.1 Generalized anxiety disorder (principal); F41.0 Panic disorder [episodic paroxysmal anxiety]; F33.9 Major depressive disorder, recurrent, unspecified
CPT/HCPCS: 99214

== ENCOUNTER → 2021-10-28 11:36 | Outpatient (BNVA) | payer MEDICARE, MEDICAID, SELFPAY ==
[2019-12-11 11:57] VITALS: BP 106/60; BMI 63.9
== END ==
PROVIDERS: PCP Family Medicine; Visit Provider Internal Medicine
DX: M05.9 Rheumatoid arthritis with rheumatoid factor, unspecified (principal); R70.0 Elevated erythrocyte sedimentation rate
CPT/HCPCS: 99213; 99214

== ENCOUNTER → 2021-11-03 13:17 | Outpatient (BNVA) | payer MEDICARE, MEDICAID, SELFPAY ==
[2019-12-11 11:57] VITALS: BP 106/60; BMI 63.9
== END ==
PROVIDERS: PCP Family Medicine; Visit Provider Surgery
DX: R92.8 Other abnormal and inconclusive findings on diagnostic imaging of breast (principal); M05.9 Rheumatoid arthritis with rheumatoid factor, unspecified; M25.50 Pain in unspecified joint; R70.0 Elevated erythrocyte sedimentation rate
CPT/HCPCS: 72040; 80053; 85025; 99203

== ENCOUNTER 2022-03-01 10:45 | Outpatient (CLI) | payer MEDICARE, MEDICAID, SELFPAY ==
[2019-12-11 11:57] VITALS: BP 106/60; BMI 63.9
--- NOTE | 2022-03-01 11:23 | MM_ITS ---
WS: [id number] Right breast diagnostic 3D tomosynthesis digital mammogram, 03/01/2022 Clinical Data: RASH/6 MO F/U Comparison: 09/02/2021, 04/27/2020, 03/07/2019, 08/23/2016, 07/31/2015, 01/28/2015, 07/28/2014, 06/16/2014, 02/24. Findings: The lateral skin thickening of the right breast has diminished. There is subcutaneous edema adjacent to the skin thickening but this has also diminished. No spiculated masses or clustered calcifications are seen. There is an intramammary lymph node. MM/[place] [id number] Impression: 1. Decrease in skin thickness of lateral right breast. 2. Partial clearing of adjacent right lateral breast edema. 3. Recommend return to annual screening mammograms and clinical follow-up by Dr Zac Jara. BIRADS: 2-Benign FOLLOW UP: 1 Year Follow-up The CAD die drawing checker was used.
== END 2022-03-01 10:46 | disposition home or self-care (01) ==
LOC: RAD 10:50
PROVIDERS: PCP Family Medicine; Visit Provider Surgery
DX: R21 Rash and other nonspecific skin eruption (principal); R92.8 Other abnormal and inconclusive findings on diagnostic imaging of breast; R60.0 Localized edema
CPT/HCPCS: 77061; G0279

== ENCOUNTER → 2022-03-09 10:22 | Outpatient (BNVA) | payer MEDICARE, MEDICAID, SELFPAY ==
[2019-12-11 11:57] VITALS: BP 106/60; BMI 63.9
== END ==
PROVIDERS: PCP Family Medicine; Visit Provider Surgery
DX: R92.8 Other abnormal and inconclusive findings on diagnostic imaging of breast (principal)
CPT/HCPCS: 99212

== ENCOUNTER 2022-05-16 16:20 | Emergency (ER) | payer MEDICARE, MEDICAID, SELFPAY ==
[2019-12-11 11:57] VITALS: BP 106/60; BMI 63.9
[2022-05-16 16:31] VITALS: BP 151/106; PULSE 84; RESP 18; TEMP 36.3; O2SAT 92
--- NOTE | 2022-05-16 19:03 | CTR_ITS ---
PROCEDURE INFORMATION: Exam: CT Abdomen And Pelvis Without Contrast Exam date and time: 05/16/2022 7:16 PM Age: 57 years old Clinical indication: Abdominal pain; Generalized; Prior surgery; Surgery type: Csection x 2. Total hysto. Patient HX: C/O persistent diffuse abd pain x 3 weeks. TECHNIQUE: Imaging protocol: Computed tomography of the abdomen and pelvis without contrast. Radiation optimization: All CT scans at this facility use at least one of these dose optimization techniques: automated exposure control; mA and/or kV adjustment per patient size (includes targeted exams where dose is matched to clinical indication); or iterative reconstruction. Other protocol: This patient has received 0 known CTs and 0 known cardiac nuclear medicine studies in the 12 months prior to the current study. COMPARISON: CR XR chest 2V* [id number] 05/19/2019 11:53 AM RADIATION DOSE METRICS: Total DLP (mGy-cm): 1576.63 FINDINGS: Liver: Normal. No mass. Gallbladder and bile ducts: Normal. No calcified stones. No ductal dilation. Pancreas: Normal. No ductal dilation. Spleen: Normal. No splenomegaly. Adrenal glands: Normal. No mass. Kidneys and ureters: In the lower pole of the right kidney there is a 3.0 cm fat containing mass consistent with an angiomyolipoma. Additional 13 mm anterior right lower pole isodense renal lesion most likely a complex cyst. Stomach and bowel: Unremarkable. No obstruction. No mucosal thickening. Appendix: No evidence of appendicitis. Intraperitoneal space: Unremarkable. No free air. No significant fluid collection. Vasculature: Unremarkable. No abdominal aortic aneurysm. Lymph nodes: Unremarkable. No enlarged lymph nodes. Urinary bladder: Unremarkable as visualized. Reproductive: Hysterectomy. Bones/joints: Unremarkable. No acute fracture. Soft tissues: Inferior ventral abdominal wall hernia containing nonobstructed loops of small bowel and fat. Other findings: Study limited by body habitus. CT/CT abdomen pelvis wo con [id number] IMPRESSION: 1. Inferior ventral abdominal wall hernia containing nonobstructed loops of small bowel and fat. 2. 3 cm mass containing mass lower pole of the right kidney consistent with angiomyolipoma.
--- NOTE | 2022-05-16 19:08 | W.ED.ABDPA2 ---
HPI - Abdominal Pain General: Chief Complaint: Abdominal Pain Stated Complaint: abd pain/headache Time Seen by Provider: 05/16/22 18:33 Source: patient Mode of arrival: ambulatory Limitations: no limitations History of Present Illness: 57-year-old female states over the last 3 weeks has been having abdominal pain. States she is states she been having a lot of gas and burping and the pain is worse with eating she was recently started on Prilosec but she has had no improvement she rates her pain a 7 out of 10 currently. Denies any chest pain denies any fever denies any vomiting or diarrhea. Associated Symptoms: Denies chills, dysuria and fever(s) Review of Systems Const: Denies: fever(s), chills, body aches or change in appetite Eyes: Denies: blurry vision or eye discomfort ENMT: Denies: throat pain or dental pain Card: Denies: chest pain Resp: Denies: dyspnea GI: Reports: abdominal pain : Denies: dysuria Musc: Denies: neck pain or back pain Skin/Breast: Denies: rash Neuro: Denies: headache(s) Psych: Denies: depression Jaswant/Lymph: Denies: easy bruising All/Imm: Denies: urticaria PFSH ED PFSH: Medical History Abnormal mammogram of both breasts Actinic keratosis Anxiety Borderline personality disorder COPD (chronic obstructive pulmonary disease) Depression Diabetes Fibromyalgia Generalized anxiety disorder with panic attacks Hyperglycemia Hypertension Obesity Psychiatric care PTSD (post-traumatic stress disorder) Sleep apnea Surgical History History of 1993 and 1989 History of colonoscopy History of hysterectomy 6 years ago. Hx of polyps Hx of external ear surgery Family History Father Alzheimer disease Sister Asthma Family/Other Cancer Aunt, Colon Mother Cancer Melanoma Congestive heart failure Father Cancer Melanoma Family/Other Cancer Uncle, Prostate Brother Diabetes Other Borderline personality disorder Social History Smoking and tobacco status: current every day smoker (half a pack ) cigarettes Packs smoked per day: 0.5 [ Other cigarette details: been smoking 2 months] Second hand smoke exposure: No Smoking risk assessment/counseling performed?: No Alcohol intake: current Alcohol intake frequency: holidays/special occasions only Desire information about substance/drug rehabilitation?: No Counseling given: No Household members: spouse Marital status: Current gender identity: Female Physical Exam Const: COMMON NORMALS: no acute distress, patient oriented x3 and healthy appearing HENMT: COMMON NORMALS: normocephalic and atraumatic HEAD & SCALP: normocephalic and atraumatic Eye: COMMON NORMALS: Equal, round and reactive pupils present and EOMs intact bilaterally PUPIL: Yes Equal, round and reactive pupils present Neck/C-Spine: COMMON NORMALS: full ROM and supple Chest: COMMONS NORMALS: normal inspection of the chest and normal palpation of entire chest wall Resp: COMMON NORMALS: normal respiratory effort, No retractions, No use of accessory muscles and clear to auscultation bilaterally AUSCULTATION: clear to auscultation bilaterally Cardio: COMMON NORMALS: regular rate, regular rhythm and No murmurs present (Cardio) RATE: regular rate RHYTHM: regular rhythm GI: COMMON NORMALS: Normal to inspection, nondistended, normoactive bowel sounds present, Soft to palpation, non-tender and no masses PALPATION: Yes Soft to palpation Extremity: COMMON NORMALS: normal to inspection and full ROM Neuro: COMMON NORMALS: patient oriented x3, moves all extremities and no focal motor deficits Psych: COMMON NORMALS: mental status grossly normal, Normal thought process present and cooperative THOUGHT PROCESS: Normal thought process present Skin: COMMON NORMALS: no rashes or lesions noted and no wounds GENERAL SKIN EXAM: no rashes or lesions noted Course Vital Signs: Vital signs: Vital Signs Temperature 97.3 F L 05/16/22 16:31 Pulse Rate 84 05/16/22 16:31 Respiratory Rate 18 05/16/22 16:31 Blood Pressure 151/106 05/16/22 16:31 Pulse Oximetry 92 05/16/22 16:31 Oxygen Delivery Me thod 05/16/22 16:31 MDM - Abdominal Pain Medical Decision Making Patient presents here with abdominal pain likely gastritis she is continue her Prilosec her CT shows a hernia here with no signs of obstruction or strangulation we will get her follow-up with surgery she is return to the ER if worsening she understands agrees plan. Lab Data 05/16/22 19:38 02/20/23 19:38 Labs/Radiology: Radiology Impressions Abdomen/Pelvis CT 05/16/22 19:03 IMPRESSION: 1. Inferior ventral abdominal wall hernia containing nonobstructed loops of small bowel and fat. 2. 3 cm mass containing mass lower pole of the right kidney consistent with angiomyolipoma. Laboratory Results WBC 8.0 10^3/uL (4.0-10.0) 05/16/22 19:38 RBC 4.55 10^6/uL (4.1-5.3) 05/16/22 19:38 Hgb 14.1 g/dL (11.5-15.3) 05/16/22 19:38 Hct 45.9 % (37.0-47.0) 05/16/22 19:38 MCV 100.9 fl (81-99) H 05/16/22 19:38 MCH 31.0 pg (28.0-34.0) 05/16/22 19:38 MCHC 30.7 g/dL (30.0-36.0) 05/16/22 19:38 RDW 14.4 % (12.1-15.1) 05/16/22 19:38 Plt Count 246 10^3/cmm (130-400) 05/16/22 19:38 MPV 10.8 fL (7.4-10.4) H 05/16/22 19:38 Neut % (Auto) 57.2 % 05/16/22 19:38 Lymph % (Auto) 30.1 % 05/16/22 19:38 Mcclain % (Auto) 7.4 % 05/16/22 19:38 Eos % (Auto) 4.0 % 05/16/22 19:38 Baso % (Auto) 0.9 % 05/16/22 19:38 Neut # (Auto) 4.56 10^3/uL (1.8-7.7) 05/16/22 19:38 Lymph # (Auto) 2.4 10^3/uL (0.8-4.8) 05/16/22 19:38 Mcclain # (Auto) 0.6 10^3/uL (0.2-0.9) 05/16/22 19:38 Eos # (Auto) 0.3 10^3/uL (0.0-0.8) 05/16/22 19:38 Baso # (Auto) 0.1 10^3/uL (0.0-0.1) 05/16/22 19:38 Nucleated RBC % (auto) 0 % 05/16/22 19:38 Nucleated RBCs # 0.0 /100WBC 05/16/22 19:38 Sodium 139 mmol/L (136-145) 05/16/22 19:38 Potassium 4.4 mmol/L (3.5-5.1) 05/16/22 19:38 Chloride 103 mmol/L (98-107) 05/16/22 19:38 Carbon Dioxide 26 mmol/L (22-29) 05/16/22 19:38 Anion Gap 14.4 (5-19) 05/16/22 19:38 BUN 11 mg/dL (6-20) 05/16/22 19:38 Creatinine 0.9 mg/dL (0.5-0.9) 05/16/22 19:38 GFR Calculation 64.1 mL/min (90-130) L 05/16/22 19:38 Glucose 90 mg/dL (65-115) 05/16/22 19:38 Calculated Osmolality 287 mOsm/kg (285-295) 05/16/22 19:38 Calcium 8.9 mg/dL (8.5-10.5) 05/16/22 19:38 Total Bilirubin 0.3 mg/dL (0.15-1.2) 05/16/22 19:38 AST 14 U/L (0-32) 05/16/22 19:38 ALT 15 U/L (0-33) 05/16/22 19:38 Alkaline Phosphatase 98 U/L (35-105) 05/16/22 19:38 Total Protein 6.4 g/dL (6.6-8.7) L 05/16/22 19:38 Albumin 3.5 g/dL (3.5-5.2) 05/16/22 19:38 Globulin 2.9 g/dL (1.3-4.6) 05/16/22 19:38 Lipase 19 U/L (13-60) 05/16/22 19:38 Discharge Plan Discharge Patient Disposition: Home Clinical Impression: Abdominal pain Condition: Stable Prescriptions: New hydrocodone-acetaminophen 5-325 mg tablet 1 tab PO Q6H PRN (Reason: pain) Qty: 14 0RF ondansetron 4 mg tablet,disintegrating 4 mg PO Q6H PRN (Reason: nausea and vomiting) Qty: 14 0RF No Action albuterol sulfate [Ventolin HFA] 90 mcg/actuation HFA aerosol inhaler 2 puff INHALATION Q4H PRN (Reason: soa) zonisamide 100 mg capsule 300 mg PO QDAY diclofenac sodium [Voltaren Arthritis Pain] 1 % gel 4 g topical QID Qty: 100 1RF Rx Instructions: apply to single knee, ankle, foot; for foot includes sole/toes/top of foot ammonium lactate 12 % lotion 1 applic topical DAILY Qty: 400 2RF ketoconazole 2 % cream 1 applic topical BID Qty: 60 3RF Rx Instructions: Apply to affected areas in skin folds x3 weeks then prn for flares famotidine [Pepcid] PO prazosin 2 mg capsule 2 mg PO .HS Qty: 90 0RF duloxetine [Cymbalta] 60 mg capsule,delayed release(DR/EC) 120 mg PO DAILY Qty: 180 0RF buspirone 15 mg tablet 15 mg PO TID Qty: 270 0RF folic acid 1 mg tablet 1 mg PO DAILY Qty: 60 0RF methotrexate sodium 2.5 mg tablet 15 mg PO .qweek 28 Days Qty: 24 2RF folic acid 1 mg tablet 1 mg PO DAILY Qty: 90 0RF meloxicam 15 mg tablet 15 mg PO DAILY Qty: 90 0RF hydroxychloroquine 200 mg tablet 200 mg PO BID Qty: 180 0RF clonazepam 1 mg tablet,disintegrating 1 mg PO DAILY PRN (Reason: anxiety) Qty: 30 0RF Discharge Orders: Discharge ED (Routine); Ordered 05/16/22 Ordered By: Yesenia Joseph Referrals: Leonel Hebert DO [Physician] - 1-3 days Audra Rodriguez MD [Primary Care Provider] - Discharge Diet: Advance as tolerated Discharge Activity: Resume usual activity Patient Instructions: Gastritis (ED), Abdominal Pain (ED) Coding Level of Care Code ED Integrated Circuits Inspector for Jasmine Pollock
[2022-05-16] MEDS: metoclopramide 5 mg/mL SDV 2 mL IVP (19:45)
[2022-05-16 19:46] LABS: Basophils # 0.1 10^3/uL (0.0-0.1); Basophils % 0.9 %; Eosinophils # 0.3 10^3/uL (0.0-0.8); Hematocrit 45.9 % (37.0-47.0); Hemoglobin 14.1 g/dL (11.5-15.3); Lymphocytes # 2.4 10^3/uL (0.8-4.8); Lymphocytes % 30.1 %; Mean Corpuscular HGB Conc 30.7 g/dL (30.0-36.0); Mean Corpuscular Volume 100.9 fl (81-99); Mean Platelet Volume 10.8 fL (7.4-10.4); Monocytes # 0.6 10^3/uL (0.2-0.9); Monocytes % 7.4 %; Neutrophils # 4.56 10^3/uL (1.8-7.7); Neutrophils % 57.2 %; Nucleated Red Blood Cells % 0 %; Platelet Count 246 10^3/cmm (130-400); Red Blood Count 4.55 10^6/uL (4.1-5.3); Red Cell Distribution Width 14.4 % (12.1-15.1)
[2022-05-16] MEDS: diphenhydrAMINE 50 mg/mL SDV 1mL 25 MG IVP (19:46)
[2022-05-16 20:00] LABS: Blood Urea Nitrogen 11 mg/dL (6-20); Carbon Dioxide 26 mmol/L (22-29); Chloride 103 mmol/L (98-107); Glomerular Filtration Rate 64.1 mL/min (90-130); Sodium 139 mmol/L (136-145)
[2022-05-16 20:01] LABS: Alanine Aminotransferase 15 U/L (0-33); Albumin Level 3.5 g/dL (3.5-5.2); Alkaline Phosphatase 98 U/L (35-105); Aspartate Amino Transferase 14 U/L (0-32); Calcium 8.9 mg/dL (8.5-10.5); Globulin 2.9 g/dL (1.3-4.6); Glucose 90 mg/dL (65-115); Lipase 19 U/L (13-60); Osmolality Calculated 287 mOsm/kg (285-295); Total Bilirubin 0.3 mg/dL (0.15-1.2); Total Protein 6.4 g/dL (6.6-8.7)
[2022-05-16 20:12] LABS: Anion Gap 14.4 (5-19); Potassium 4.4 mmol/L (3.5-5.1)
[2022-05-16 21:02] VITALS: BP 161/100; PULSE 89; RESP 16; O2SAT 91
--- NOTE | 2022-05-17 12:00 | DCPLANNER ---
Addendum entered by Lela Gomes 05/18/22 14:46: Facility confirmed that they did receive patients information. Addendum entered by Lela Gomes 05/18/22 14:39: manager laboratory received the following message from the front office staff at general surgery regarding follow up appointment: Patient has C, please refer elsewhere. manager laboratory called and explained this to patient. manager laboratory asked patient if she wanted to be referred to [facility] or [facility], patient stated that she would like to be referred to [facility]. manager laboratory faxed patients information to the [facility] to be reviewed. Patients information will be reviewed. Clinic will call patient with appointment information. Original Note: manager laboratory had message to schedule a follow up appointment for patient with general surgery. manager laboratory sent patients information to the front office staff at general [facility]. Patients information will be printed and reviewed. Clinic will call patient with appointment information.
== END 2022-05-16 21:03 | disposition home or self-care (01) ==
PROVIDERS: Emergency Provider Emergency Medicine; PCP Family Medicine
DX: R10.9 Unspecified abdominal pain (principal); F17.210 Nicotine dependence, cigarettes, uncomplicated; J44.9 Chronic obstructive pulmonary disease, unspecified; E11.9 Type 2 diabetes mellitus without complications; I10 Essential (primary) hypertension
CPT/HCPCS: 74176; 80053; 83690; 85025; 96374; 96375; 99285; J1200; J2765

== ENCOUNTER → 2022-06-30 10:27 | Outpatient (BNVA) | payer MEDICARE, MEDICAID, SELFPAY ==
[2019-12-11 11:57] VITALS: BP 106/60; BMI 63.9
== END ==
PROVIDERS: PCP Family Medicine; Visit Provider Internal Medicine
DX: M05.9 Rheumatoid arthritis with rheumatoid factor, unspecified (principal); M25.50 Pain in unspecified joint
CPT/HCPCS: 99213

== ENCOUNTER 2022-08-15 12:07 | Emergency (ER) | payer MEDICARE, MEDICAID, SELFPAY ==
[2019-12-11 11:57] VITALS: BP 106/60; BMI 63.9
[2022-08-15 12:21] VITALS: BP 153/94; PULSE 94; RESP 16; TEMP 36.8; O2SAT 90; BMI 65.2
--- NOTE | 2022-08-15 14:00 | W.ED.NAVMDI ---
HPI - Nausea/Vomiting/Diarrhea General: Chief complaint: Nausea/Vomiting/Diarrhea Stated complaint: Head pain, N/V/D, weakness Time Seen by Provider: 08/15/22 13:36 Source: patient Mode of arrival: wheelchair Limitations: no limitations History of Present Illness: Patient presents emergency department today for evaluation treatment of continued daily vomiting. Patient reports this has been going on for months . Chart review shows she was seen and evaluated here in the emergency department in April for the similar complaints. CT examination was generally benign other than a ventral hernia which was found. She was diagnosed with gastritis at that time and referred on to general surgery. General surgery did their evaluation but, would not perform the hernia surgery on the patient due to her size. Patient was referred on to bariatric surgery and is currently trying to lose weight to have bariatric surgery performed. Patient reports intense nausea and vomiting daily. She states she hardly eats anything as oral intake causes her vomiting to worsen. She denies fevers. She denies any specifically located abdominal pains. Patient states has been quite sometime since she has had a normal bowel movement. She reports very loose stools which either pass when she is actively vomiting or when she passes gas. Patient reports she has lots of belching and flatus. Patient states she has talked to her primary care doctor regarding this but, has never seen GI for these complaints. She reports regular colonoscopies. Her last colonoscopy they did remove a polyp and indicated there was another small polyp which was not removed. Patient admits she is concerned regarding her colon-especially with her continued symptoms. Patient did not start any new medications prior to onset of her symptoms. Patient is currently taking Ozempic-this is new, to help her with weight loss to get bariatric surgery. Review of Systems General: Reports: 10 or more systems reviewed and unremarkable except in HPI and below PFSH ED PFSH: Medical History Abnormal mammogram of both breasts Actinic keratosis Anxiety Borderline personality disorder COPD (chronic obstructive pulmonary disease) Depression Diabetes Fibromyalgia Generalized anxiety disorder with panic attacks Hyperglycemia Hypertension Obesity Psychiatric care PTSD (post-traumatic stress disorder) Sleep apnea Surgical History History of 1993 and 1989 History of colonoscopy History of hysterectomy 6 years ago. Hx of polyps Hx of external ear surgery Family History Father Alzheimer disease Sister Asthma Family/Other Cancer Aunt, Colon Mother Cancer Melanoma Congestive heart failure Father Cancer Melanoma Family/Other Cancer Uncle, Prostate Brother Diabetes Other Borderline personality disorder Social History Smoking and tobacco status: current every day smoker (half a pack ) cigarettes Packs smoked per day: 0.5 [ Other cigarette details: been smoking 2 months] Second hand smoke exposure: No Smoking risk assessment/counseling performed?: No Alcohol intake: current Alcohol intake frequency: holidays/special occasions only Substance/Drug Use: never Desire information about substance/drug rehabilitation?: No Counseling given: No Household members: spouse Marital status: Current gender identity: Female Physical Exam Const: COMMON NORMALS: no acute distress, patient oriented x3 and alert HENMT: COMMON NORMALS: normocephalic, atraumatic, hearing grossly normal bilaterally and moist oral mucous membranes HEAD & SCALP: normocephalic and atraumatic Eye: COMMON NORMALS: Equal, round and reactive pupils present, EOMs intact bilaterally and conjunctivae normal CONJUNCTIVA: Yes conjunctivae normal PUPIL: Yes Equal, round and reactive pupils present Neck/C-Spine: COMMON NORMALS: full ROM and no JVD Lymph: LYMPHATIC: no lymphadenopathy noted Resp: COMMON NORMALS: normal respiratory effort, No retractions, No use of accessory muscles and clear to auscultation bilaterally AUSCULTATION: clear to auscultation bilaterally Cardio: COMMON NORMALS: no JVD, regular rate and regular rhythm RATE: regular rate RHYTHM: regular rhythm GI: OTHER: Patient with a large pannus. Bowel sounds are difficult to hear and are extremely quiet abdomen is still soft. No specific tenderness noted on palpation. : COMMON NORMALS: Yes no CVA tenderness BLADDER/KIDNEY EXAM: Yes no CVA tenderness Back/Pelvis: COMMON NORMALS: no CVA tenderness, no thoracic nor lumbar tenderness and thoraco-lumbar ROM normal Extremity: COMMON NORMALS: normal to inspection, full ROM and capillary refill normal Neuro: COMMON NORMALS: patient oriented x3 SENSORIUM/ORIENTATION: Yes alert Psych: COMMON NORMALS: mental status grossly normal, Normal thought process present, cooperative, normal affect and activity/motor behavior normal THOUGHT PROCESS: Normal thought process present Skin: COMMON NORMALS: no rashes or lesions noted and no wounds GENERAL SKIN EXAM: no rashes or lesions noted Course Vital Signs: Vital signs: Vital Signs Temperature 98.2 F 08/15/22 12:21 Pulse Rate 94 08/15/22 12:21 Respiratory Rate 16 08/15/22 12:21 Blood Pressure 150/96 08/15/22 17:00 Pulse Oximetry 93 08/15/22 17:00 Oxygen Delivery Me thod Room Air 08/15/22 17:00 MDM - Nausea/Vomiting/Diarrhea Medical Decision Making Patients lab evaluation is generally unremarkable. This seems to be the case each time the patient is evaluated. Given the length of time and specific symptoms with lack of findings otherwise, i did run a UDS. Patient tested positive for marijuana. Patient has a green card and reports to smoking regularly- last time was 2 days ago. She states she uses marijuana for chronic pain- to avoid having to get back injections. Explained to her that i am suspicious that she has developed hyperemesis cannabis. We had a long discussion about this possibility and typical symptoms of the condition. Patient was very receptive and was willing to try and avoid THC products for several weeks to see if symptoms fully resolved. Discussed a recheck with PCP if needed. patient was given reglan for nausea as she states zofran made her too sleepy. Information about hyperemesis from [facility] was given for her to look over at home. Differential Diagnosis Likely traveler's diarrhea, gastroenteritis, drug-induced nausea and vomiting and dehydration Lab Data 08/15/22 14:10 08/15/22 16:48 Laboratory Results WBC 7.8 10^3/uL (4.0-10.0) 08/15/22 14:10 RBC 5.15 10^6/uL (4.1-5.3) 08/15/22 14:10 Hgb 16.0 g/dL (11.5-15.3) H 08/15/22 14:10 Hct 52.1 % (37.0-47.0) H 08/15/22 14:10 MCV 101.2 fl (81-99) H 08/15/22 14:10 MCH 31.1 pg (28.0-34.0) 08/15/22 14:10 MCHC 30.7 g/dL (30.0-36.0) 08/15/22 14:10 RDW 14.6 % (12.1-15.1) 08/15/22 14:10 Plt Count 195 10^3/cmm (130-400) 08/15/22 14:10 MPV 12.1 fL (7.4-10.4) H 08/15/22 14:10 Neut % (Auto) 58.0 % 08/15/22 14:10 Lymph % (Auto) 25.9 % 08/15/22 14:10 [place] % (Auto) 10.8 % 08/15/22 14:10 Eos % (Auto) 3.3 % 08/15/22 14:10 Baso % (Auto) 1.7 % 08/15/22 14:10 Neut # (Auto) 4.53 10^3/uL (1.8-7.7) 08/15/22 14:10 Lymph # (Auto) 2.0 10^3/uL (0.8-4.8) 08/15/22 14:10 [place] # (Auto) 0.8 10^3/uL (0.2-0.9) 08/15/22 14:10 Eos # (Auto) 0.3 10^3/uL (0.0-0.8) 08/15/22 14:10 Baso # (Auto) 0.1 10^3/uL (0.0-0.1) 08/15/22 14:10 Nucleated RBC % (auto) 0 % 08/15/22 14:10 Nucleated RBCs # 0.0 /100WBC 08/15/22 14:10 Sodium 132 mmol/L (136-145) L 08/15/22 16:48 Potassium 4.0 mmol/L (3.5-5.1) 08/15/22 16:48 Chloride 98 mmol/L (98-107) 08/15/22 16:48 Carbon Dioxide 22 mmol/L (22-29) 08/15/22 16:48 Anion Gap 16.0 (5-19) 08/15/22 16:48 BUN 10 mg/dL (6-20) 08/15/22 16:48 Creatinine 0.7 mg/dL (0.5-0.9) 08/15/22 16:48 GFR Calculation 85.6 mL/min (90-130) L 08/15/22 16:48 Glucose 70 mg/dL (65-115) 08/15/22 16:48 Calculated Osmolality 271 mOsm/kg (285-295) L 08/15/22 16:48 Calcium 9.2 mg/dL (8.5-10.5) 08/15/22 16:48 Total Bilirubin 0.3 mg/dL (0.15-1.2) 08/15/22 16:48 AST 20 U/L (0-32) 08/15/22 16:48 ALT 16 U/L (0-33) 08/15/22 16:48 Alkaline Phosphatase 77 U/L (35-105) 08/15/22 16:48 Total Protein 6.5 g/dL (6.6-8.7) L 08/15/22 16:48 Albumin 3.3 g/dL (3.5-5.2) L 08/15/22 16:48 Globulin 3.2 g/dL (1.3-4.6) 08/15/22 16:48 Lipase 21 U/L (13-60) 08/15/22 16:48 Urine Color Yellow (Yellow) 08/15/22 15:20 Urine Appearance Clear (CLEAR) 08/15/22 15:20 Urine pH 5 (5-7) 08/15/22 15:20 Ur Specific [place] 1.020 (1.005-1.030) 08/15/22 15:20 Urine Protein Neg (Negative) 08/15/22 15:20 Urine Glucose (UA) Norm (Normal) 08/15/22 15:20 Urine Ketones 3+ (Negative) H 08/15/22 15:20 Urine Blood 3+ (Negative) H 08/15/22 15:20 Urine Nitrate Negative (Negative) 08/15/22 15:20 Urine Bilirubin Neg (Negative) 08/15/22 15:20 Urine Urobilinogen Norm mg/dL (Negative) 08/15/22 15:20 Ur Leukocyte Esterase Negative (Negative) 08/15/22 15:20 Urine RBC 0-4 /hpf (0-2) H 08/15/22 15:20 Urine WBC 0-4 /hpf (0-5) H 08/15/22 15:20 Ur Squamous Epith Cells 0-4 /hpf (0-5) H 08/15/22 15:20 Amorphous Sediment Trace /hpf 08/15/22 15:20 Urine Bacteria Trace /hpf (NONE) 08/15/22 15:20 Urine Mucus 2+ /hpf 08/15/22 15:20 Urine Opiates Screen Negative ng/mL (Negative) 08/15/22 15:20 Ur Barbiturates Screen Negative ng/mL (Negative) 08/15/22 15:20 Ur Phencyclidine Scrn Negative ng/mL (Negative) 08/15/22 15:20 Ur Amphetamines Screen Negative ng/mL (Negative) 08/15/22 15:20 U Benzodiazepines Scrn Negative ng/mL (Negative) 08/15/22 15:20 Urine Cocaine Screen Negative ng/mL (Negative) 08/15/22 15:20 U Marijuana (THC) Screen Positive ng/mL (Negative) H 08/15/22 15:20 Discharge Plan Discharge Patient Disposition: Home Clinical Impression: Cannabis 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 Condition: Stable Prescriptions: New metoclopramide HCl 10 mg tablet 10 mg PO Q6H PRN (Reason: nausea and vomiting) Qty: 20 0RF No Action albuterol sulfate [Ventolin HFA] 90 mcg/actuation HFA aerosol inhaler 2 puff INHALATION Q4H PRN (Reason: soa) zonisamide 100 mg capsule 300 mg PO QDAY diclofenac sodium [Voltaren Arthritis Pain] 1 % gel 4 g topical QID Qty: 100 1RF Rx Instructions: apply to single knee, ankle, foot; for foot includes sole/toes/top of foot ammonium lactate 12 % lotion 1 applic topical DAILY Qty: 400 2RF ketoconazole 2 % cream 1 applic topical BID Qty: 60 3RF Rx Instructions: Apply to affected areas in skin folds x3 weeks then prn for flares omeprazole magnesium [Prilosec OTC] 20 mg tablet,delayed release (DR/EC) 20 mg PO DAILY duloxetine [Cymbalta] 60 mg capsule,delayed release(DR/EC) 120 mg PO DAILY Qty: 180 0RF prazosin 2 mg capsule 2 mg PO .HS Qty: 90 0RF buspirone 15 mg tablet 15 mg PO TID Qty: 270 0RF folic acid 1 mg tablet 1 mg PO DAILY Qty: 60 0RF methotrexate sodium 2.5 mg tablet 15 mg PO .qweek 28 Days Qty: 24 2RF folic acid 1 mg tablet 1 mg PO DAILY Qty: 90 0RF meloxicam 15 mg tablet 15 mg PO DAILY Qty: 90 0RF hydroxychloroquine 200 mg tablet 200 mg PO BID Qty: 180 0RF clonazepam 1 mg tablet,disintegrating 1 mg PO DAILY PRN (Reason: anxiety) Qty: 30 0RF hydrocodone-acetaminophen 5-325 mg tablet 1 tab PO Q6H PRN (Reason: pain) Qty: 14 0RF ondansetron 4 mg tablet,disintegrating 4 mg PO Q6H PRN (Reason: nausea and vomiting) Qty: 14 0RF Discharge Orders: Discharge ED (Routine); Ordered 08/15/22 Ordered By: Precious Garcia Referrals: Audra Rodriguez MD [Primary Care Provider] - Discharge Diet: Usual diet Discharge Activity: Increase activity as tolerated Activity Restrictions/Additional Instructions: Labs today all look really good. Given the amount of time you have been having symptoms with severe abdominal pains and profuse vomiting, I am suspicious for hyperemesis cannabis. As we discussed, this condition affects those who used THC products and can cause severe abdominal pains and profuse vomiting-even if it had not caused the symptoms in the past. Patient is often become dehydrated due to the amount of vomiting. It is also sometimes difficult to control the nausea and pain. We do recommend a trial of avoiding THC products for 2 to 3 weeks to see if symptoms of abdominal pain and vomiting resolve completely. I have changed her antinausea medication to something different to see if it causes less sedation. Be sure you are trying to drink lots of fluids to keep yourself hydrated. Coding Level of Care Code ED Spindle Repairer for Jasmine Pollock
[2022-08-15 14:07] VITALS: BP 175/99; O2SAT 93
[2022-08-15] MEDS: sodium chloride 0.9% 1,000 ML 999 ML IV (14:28)
[2022-08-15] MEDS: metoclopramide 5 mg/mL SDV 2 mL 10 MG IVP (14:31)
[2022-08-15 14:49] LABS: Basophils # 0.1 10^3/uL (0.0-0.1); Basophils % 1.7 %; Eosinophils # 0.3 10^3/uL (0.0-0.8); Eosinophils % 3.3 %; Hematocrit 52.1 % (37.0-47.0); Lymphocytes % 25.9 %; Mean Corpuscular HGB Conc 30.7 g/dL (30.0-36.0); Mean Corpuscular Hemoglobin 31.1 pg (28.0-34.0); Mean Corpuscular Volume 101.2 fl (81-99); Mean Platelet Volume 12.1 fL (7.4-10.4); Monocytes # 0.8 10^3/uL (0.2-0.9); Monocytes % 10.8 %; Neutrophils # 4.53 10^3/uL (1.8-7.7); Nucleated Red Blood Cells % 0 %; Platelet Count 195 10^3/cmm (130-400); Red Blood Count 5.15 10^6/uL (4.1-5.3); Red Cell Distribution Width 14.6 % (12.1-15.1); White Blood Count 7.8 10^3/uL (4.0-10.0)
[2022-08-15 15:42] VITALS: BP 167/116; O2SAT 95
[2022-08-15 16:20] LABS: Amphetamines Screen Urine Negative (Negative); Barbiturates Screen Urine Negative (Negative); Benzodiazepines Screen Urine Negative (Negative); Cocaine Screen Urine Negative (Negative); Opiate Screen Urine Negative (Negative); PCP Screen Urine Negative (Negative); THC Screen Urine Positive (Negative)
[2022-08-15 16:22] LABS: Bilirubin Urine Neg (Negative); Blood Urine 3+ (Negative); Glucose Urine UA Norm (Normal); Ketones Urine 3+ (Negative); Leukocyte Esterase Urine Negative (Negative); Nitrate Urine Negative (Negative); Protein Urine Neg (Negative); Urine Appearance Clear (CLEAR); Urine Color Yellow (Yellow); pH Urine 5 (5-7)
[2022-08-15 16:23] LABS: Add Urine Culture? No; Add Urine Microscopic? YES; Amorphous Sediment Urine TRACE /hpf; Bacteria Urine TRACE /hpf; Mucus Urine 2+ /hpf; RBC Urine 0-4 /hpf (0-2); Squamous Epithelial Cell Urine 0-4 /hpf (0-5); Urobilinogen Urine Norm (Negative); WBC Urine 0-4 /hpf (0-5)
[2022-08-15 17:00] VITALS: BP 150/96; O2SAT 93
[2022-08-15 17:13] LABS: Alanine Aminotransferase 16 U/L (0-33); Albumin Level 3.3 g/dL (3.5-5.2); Alkaline Phosphatase 77 U/L (35-105); Aspartate Amino Transferase 20 U/L (0-32); Blood Urea Nitrogen 10 mg/dL (6-20); Calcium 9.2 mg/dL (8.5-10.5); Carbon Dioxide 22 mmol/L (22-29); Chloride 98 mmol/L (98-107); Globulin 3.2 g/dL (1.3-4.6); Glomerular Filtration Rate 85.6 mL/min (90-130); Glucose 70 mg/dL (65-115); Lipase 21 U/L (13-60); Osmolality Calculated 271 mOsm/kg (285-295); Sodium 132 mmol/L (136-145); Total Bilirubin 0.3 mg/dL (0.15-1.2); Total Protein 6.5 g/dL (6.6-8.7)
== END 2022-08-15 17:41 | disposition home or self-care (01) ==
PROVIDERS: Emergency Provider Physician Assistant; PCP Family Medicine
DX: R11.2 Nausea with vomiting, unspecified (principal); F12.10 Cannabis abuse, uncomplicated; F17.210 Nicotine dependence, cigarettes, uncomplicated; J44.9 Chronic obstructive pulmonary disease, unspecified; E11.9 Type 2 diabetes mellitus without complications; I10 Essential (primary) hypertension
CPT/HCPCS: 36415; 80053; 80306; 81001; 83690; 85025; 96361; 96374; 99284; J2765; J7030

== ENCOUNTER 2022-09-21 11:12 | Emergency (ER) | payer MEDICARE, MEDICAID, SELFPAY ==
[2019-12-11 11:57] VITALS: BP 106/60; BMI 63.9
[2022-09-21 11:43] VITALS: BP 157/91; PULSE 80; RESP 18; TEMP 36.6; O2SAT 98
--- NOTE | 2022-09-21 11:53 | ED_ITS ---
Documented by User: SIERRA Corona 09/21/22 16:04 HPI - Abdominal Pain General: Chief Complaint: Abdominal Pain Stated Complaint: abd pain Time Seen by Provider: 09/21/22 11:44 Source: patient Mode of arrival: ambulatory Limitations: no limitations History of Present Illness: Patient is a 57-year-old female presents to ED today with a complaint of abdominal pain. Patient states she has had intermittent stomach problems for a long time but states this pain feels differently. She states it started yesterday and has continued into today. She feels like she is dry h eaving/belching more often and is concerned as she has not had a bowel movement in 2 days. She does not feel like she is passing much gas. She has a known ventral hernia in which she has met with general surgery who will not repair until she loses an appropriate amount of weight. She is being followed with bariatric surgery and is on Ozempic for weight loss. Patient is not running fevers. She has not had any episodes of emesis. Last colonoscopy was in 2019. Polyp was removed-pathology report showing hyperplastic polyp with no malignancy identified. MD elicited complaint: abdominal pain Pertinent past history: other (hernia) Onset (ago): day(s) Pain Consistency: constant Location: Diffuse Radiation: none Migration to: no migration Exacerbating factors: nothing Relieving factors: nothing Associated Symptoms: Reports belching, bloating, constipation and other (hernia); Denies chills, diarrhea, dysuria, fever(s), heartburn, hematochezia, hematuria, melena, nausea, syncope and vomiting Related Data: Patient : No Review of Systems Const: Denies: fever(s), chills, body aches, fatigue or malaise Eyes: Denies: change in vision or blurry vision Card: Denies: chest pain, palpitations, irregular heart rhythm, lightheadedness, syncope or dyspnea on exertion Resp: Denies: dyspnea, productive cough or pain on inspiration GI: Reports: abdominal pain, constipation, bloating, belching and other (hernia); Denies: nausea, vomiting, heartburn, diarrhea, rectal pain, hematochezia or melena : Denies: flank pain, difficulty voiding, dysuria, hematuria or pelvic pain Musc: Denies: neck pain, back pain or joint pain Skin/Breast: Denies: rash Neuro: Denies: headache(s) or dizziness PFSH ED PFSH: Medical History Abnormal mammogram of both breasts Actinic keratosis Anxiety Borderline personality disorder COPD (chronic obstructive pulmonary disease) Depression Diabetes Fibromyalgia Generalized anxiety disorder with panic attacks Hyperglycemia Hypertension Obesity Psychiatric care PTSD (post-traumatic stress disorder) Sleep apnea Surgical History History of 1993 and 1989 History of colonoscopy History of hysterectomy 6 years ago. Hx of polyps Hx of external ear surgery Family History Father Alzheimer disease Sister Asthma Family/Other Cancer Aunt, Colon Mother Cancer Melanoma Congestive heart failure Father Cancer Melanoma Family/Other Cancer Uncle, Prostate Brother Diabetes Other Borderline personality disorder Social History Smoking and tobacco status: current every day smoker (half a pack ) cigarettes Packs smoked per day: 0.5 [ Other cigarette details: been smoking 2 months] Second hand smoke exposure: No Smoking risk assessment/counseling performed?: No Alcohol intake: current Alcohol intake frequency: holidays/special occasions only Substance/Drug Use: never Desire information about substance/drug rehabilitation?: No Counseling given: No Household members: spouse Marital status: Current gender identity: Female Physical Exam Const: COMMON NORMALS: no acute distress, patient oriented x3, no limitations and alert GENERAL APPEARANCE: cooperative NUTRITIONAL APPEARANCE: obese morbidly obese (BMI over 57) ORIENTATION/CONSCIOUSNESS: Yes awake, Yes oriented to person, Yes oriented to place and Yes oriented to time HENMT: COMMON NORMALS: normocephalic and atraumatic HEAD & SCALP: normal to inspection, normocephalic and atraumatic Eye: COMMON NORMALS: no scleral icterus Neck/C-Spine: COMMON NORMALS: full ROM, no lymphadenopathy, supple and no meningeal signs Chest: COMMONS NORMALS: normal inspection of the chest and normal palpation of entire chest wall Resp: COMMON NORMALS: normal respiratory effort and clear to auscultation bilaterally AUSCULTATION: clear to auscultation bilaterally Cardio: COMMON NORMALS: regular rate and regular rhythm RATE: regular rate RHYTHM: regular rhythm GI: COMMON NORMALS: Soft to palpation INSPECTION: Yes other (large ventral/periumbilical hernia present-not reducible ) AUSCULTATION: Yes normoactive bowel sounds PALPATION: Yes Soft to palpation, Yes Tenderness to palpation present (GI) (diffusely), No Guarding due to palpation present (GI) and No Rigid due to palpation OTHER: exam is significant limited secondary to morbid obesity : COMMON NORMALS: Yes no CVA tenderness BLADDER/KIDNEY EXAM: Yes no CVA tenderness Back/Pelvis: COMMON NORMALS: no CVA tenderness, thoracic and lumbar spine normal to inspection, no thoracic nor lumbar tenderness and thoraco-lumbar ROM normal Extremity: COMMON NORMALS: normal to inspection GENERAL: Yes normal exam except as noted Neuro: POLO COMA SCALE: document GCS findings Polo coma scale eye opening: Spontaneous Polo coma scale verbal response: Orientated [place] coma scale motor response: Obey commands Polo coma scale total score: 15 COMMON NORMALS: patient oriented x3 SENSORIUM/ORIENTATION: Yes alert, Yes oriented to person, Yes oriented to place and Yes oriented to time MENINGEAL SIGNS: Yes no meningeal signs Skin: COMMON NORMALS: no rashes or lesions noted GENERAL SKIN EXAM: no rashes or lesions noted Course Consultations: Consultation #1: Dr. Hebert-will see in ED and attempt reduction Vital Signs: Vital signs: Vital Signs Temperature 97.8 F 09/21/22 11:43 Pulse Rate 99 09/21/22 20:50 Respiratory Rate 20 H 09/21/22 20:50 Blood Pressure 148/91 09/21/22 20:50 Pulse Oximetry 93 09/21/22 20:50 Oxygen Delivery Me thod Room Air 09/21/22 20:30 Oxygen Flow Rate 3 09/21/22 19:01 MDM - Abdominal Pain Medical Decision Making On patient CT scan there was a periumbilical hernia with some inflammatory fluid and stranding along with proximal small bowel dilatation concerning for incarceration or early strangulation. I consulted with Dr. Hebert who agreed to graciously evaluate patient in the ED and attempt reduction. Patient r equired conscious sedation for this procedure. Dr. Joseph also evaluated patient and assisted Dr. Hebert with this procedure. Please see their notes for conscious sedation/procedure. Dr. Joseph will assume care and plan for disposition. ES Lab Data 09/21/22 12:20 09/21/22 12:20 Labs/Radiology: Radiology Impressions Abdomen/Pelvis CT 09/21/22 12:21 IMPRESSION: There is a periumbilical hernia containing small bowel appearing slightly larger along with some inflammatory fluid and stranding with some proximal small bowel dilatation concerning for incarceration or early strangulation. Laboratory Results WBC 8.3 10^3/uL (4.0-10.0) 09/21/22 12:20 RBC 5.14 10^6/uL (4.1-5.3) 09/21/22 12:20 Hgb 15.5 g/dL (11.5-15.3) H 09/21/22 12:20 Hct 50.0 % (37.0-47.0) H 09/21/22 12:20 MCV 97.3 fl (81-99) 09/21/22 12:20 MCH 30.2 pg (28.0-34.0) 09/21/22 12:20 MCHC 31.0 g/dL (30.0-36.0) 09/21/22 12:20 RDW 14.2 % (12.1-15.1) 09/21/22 12:20 Plt Count 221 10^3/cmm (130-400) 09/21/22 12:20 MPV 11.1 fL (7.4-10.4) H 09/21/22 12:20 Neut % (Auto) 82.8 % 09/21/22 12:20 Lymph % (Auto) 11.6 % 09/21/22 12:20 [place] % (Auto) 4.2 % 09/21/22 12:20 Eos % (Auto) 0.4 % 09/21/22 12:20 Baso % (Auto) 0.6 % 09/21/22 12:20 Neut # (Auto) 6.83 10^3/uL (1.8-7.7) 09/21/22 12:20 Lymph # (Auto) 1.0 10^3/uL (0.8-4.8) 09/21/22 12:20 [place] # (Auto) 0.4 10^3/uL (0.2-0.9) 09/21/22 12:20 Eos # (Auto) 0.0 10^3/uL (0.0-0.8) 09/21/22 12:20 Baso # (Auto) 0.1 10^3/uL (0.0-0.1) 09/21/22 12:20 Nucleated RBC % (auto) 0 % 09/21/22 12:20 Nucleated RBCs # 0.0 /100WBC 09/21/22 12:20 Sodium 134 mmol/L (136-145) L 09/21/22 12:20 Potassium 4.3 mmol/L (3.5-5.1) 09/21/22 12:20 Chloride 98 mmol/L (98-107) 09/21/22 12:20 Carbon Dioxide 27 mmol/L (22-29) 09/21/22 12:20 Anion Gap 13.3 (5-19) 09/21/22 12:20 BUN 10 mg/dL (6-20) 09/21/22 12:20 Creatinine 0.8 mg/dL (0.5-0.9) 09/21/22 12:20 GFR Calculation 73.4 mL/min (90-130) L 09/21/22 12:20 Glucose 105 mg/dL (65-115) 09/21/22 12:20 Calculated Osmolality 277 mOsm/kg (285-295) L 09/21/22 12:20 Lactic Acid 1.1 mmol/L (0.5-2.2) 09/21/22 12:20 Calcium 9.6 mg/dL (8.5-10.5) 09/21/22 12:20 Total Bilirubin 0.4 mg/dL (0.15-1.2) 09/21/22 12:20 AST 29 U/L (0-32) 09/21/22 12:20 ALT 37 U/L (0-33) H 09/21/22 12:20 Alkaline Phosphatase 93 U/L (35-105) 09/21/22 12:20 Total Protein 7.3 g/dL (6.6-8.7) 09/21/22 12:20 Albumin 3.7 g/dL (3.5-5.2) 09/21/22 12:20 Globulin 3.6 g/dL (1.3-4.6) 09/21/22 12:20 Lipase 21 U/L (13-60) 09/21/22 12:20 Discharge Plan Discharge Patient Disposition: Home Clinical Impression: Periumbilical hernia, Morbid obesity Condition: Stable Prescriptions: No Action albuterol sulfate [Ventolin HFA] 90 mcg/actuation HFA aerosol inhaler 2 puff INHALATION Q4H PRN (Reason: Shortness Of Breath) zonisamide 100 mg capsule 300 mg PO BEDTIME omeprazole magnesium [Prilosec OTC] 20 mg tablet,delayed release (DR/EC) 20 mg PO BID buspirone 15 mg tablet 15 mg PO TID Qty: 270 0RF clonazepam 1 mg tablet,disintegrating 1 mg PO DAILY PRN (Reason: anxiety) Qty: 30 0RF hydroxychloroquine 200 mg tablet 200 mg PO BID Qty: 180 0RF metoclopramide HCl 10 mg tablet 10 mg PO Q6H PRN (Reason: nausea and vomiting) Qty: 20 0RF hydrocodone-acetaminophen 5-325 mg tablet 1 tab PO Q6H PRN (Reason: pain) Qty: 14 0RF ondansetron 4 mg tablet,disintegrating 4 mg PO Q6H PRN (Reason: nausea and vomiting) Qty: 14 0RF levothyroxine 25 mcg tablet 25 mcg PO QAM pantoprazole 40 mg tablet,delayed release (DR/EC) 40 mg PO DAILY Rx Instructions: per pt not started medication as of 09/21/22 fluticasone propionate 50 mcg/actuation spray,suspension 2 spray INTRANASAL DAILY PRN (Reason: Allergy Symptoms) Ozempic 0.25 mg or 0.5 mg (2 mg/3 mL) pen injector 0.5 mg SUBCUT Q7D Rx Instructions: on methotrexate sodium 2.5 mg tablet 15 mg PO Q7D Rx Instructions: on mon folic acid 1 mg tablet 1 mg PO QAM ketoconazole 2 % cream 1 applic topical BID PRN (Reason: flares) Rx Instructions: Apply to affected areas in skin folds x3 weeks then prn for flares prazosin 2 mg capsule 2 mg PO BEDTIME Cymbalta 60 mg capsule,delayed release(DR/EC) 60 mg PO BID Voltaren Arthritis Pain 1 % gel 4 g topical QID PRN (Reason: Pain) Rx Instructions: apply to single knee, ankle, foot; for foot includes sole/toes/top of foot Discharge Orders: Discharge ED (Routine); Ordered 09/21/22 Ordered By: Yesenia Joseph Referrals: Audra Rodriguez MD [Primary Care Provider] - Discharge Diet: Advance as tolerated Discharge Activity: Resume usual activity Patient Instructions: Abdominal Hernia Coding Level of Care Code ED Kitchen Work Supervisor for Chg Fwd Documented by User: Yesenia Joseph MD 09/21/22 20:54 HPI - Abdominal Pain General: Chief Complaint: Abdominal Pain Stated Complaint: abd pain Time Seen by Provider: 09/21/22 11:44 PFSH ED PFSH: Medical History Abnormal mammogram of both breasts Actinic keratosis Anxiety Borderline personality disorder COPD (chronic obstructive pulmonary disease) Depression Diabetes Fibromyalgia Generalized anxiety disorder with panic attacks Hyperglycemia Hypertension Obesity Psychiatric care PTSD (post-traumatic stress disorder) Sleep apnea Surgical History History of 1993 and 1989 History of colonoscopy History of hysterectomy 6 years ago. Hx of polyps Hx of external ear surgery Family History Father Alzheimer disease Sister Asthma Family/Other Cancer Aunt, Colon Mother Cancer Melanoma Congestive heart failure Father Cancer Melanoma Family/Other Cancer Uncle, Prostate Brother Diabetes Other Borderline personality disorder Social History Smoking and tobacco status: current every day smoker (half a pack ) cigarettes Packs smoked per day: 0.5 [ Other cigarette details: been smoking 2 months] Second hand smoke exposure: No Smoking risk assessment/counseling performed?: No Alcohol intake: current Alcohol intake frequency: holidays/special occasions only Substance/Drug Use: never Desire information about substance/drug rehabilitation?: No Counseling given: No Household members: spouse Marital status: Current gender identity: Female Physical Exam Neuro: POLO COMA SCALE: document GCS findings Polo coma scale total score: 15 Procedures Procedural Sedation Indication: other (hernia reduction) ASA Class: II Time of Last PO Intake: 00:30 Preparation: quality assurance monitor chassis applied, pulse oximeter and supplemental O2 applied Ketamine: IV Ketamine dose (mg): 700 IV Propofol dose (mg): 1,100 Patient Tolerated Procedure: well Complications: none Additional Comments: Patient was never fully sedated the reduction was performed by surgeon Dr. Hebert who is in the room the whole time as well blood pressure stayed above 130 no complications Course Vital Signs: Vital signs: Vital Signs Temperature 97.8 F 09/21/22 11:43 Pulse Rate 99 09/21/22 20:50 Respiratory Rate 20 H 09/21/22 20:50 Blood Pressure 148/91 09/21/22 20:50 Pulse Oximetry 93 09/21/22 20:50 Oxygen Delivery Me thod Room Air 09/21/22 20:30 Oxygen Flow Rate 3 09/21/22 19:01 MDM - Abdominal Pain Medical Decision Making On patient CT scan there was a periumbilical hernia with some inflammatory fluid and stranding along with proximal small bowel dilatation concerning for incarceration or early strangulation. I consulted with Dr. Hebert who agreed to graciously evaluate patient in the ED and attempt reduction. Patient required conscious sedation for this procedure. Dr. Joseph also evaluated patient and assisted Dr. Hebert with this procedure. Please see their notes for conscious sedation/procedure. Dr. Joseph will assume care and plan for disposition. ES Patient had a here hernia reduced here by Dr. Hebert did observe her she has not had return of the hernia she has had no pain she feels much improved she is ambulatory at her baseline she is stable for discharge she is to follow-up with her surgeon in [facility] if worsening she understands agrees to plan. Lab Data 09/21/22 12:20 09/21/22 12:20 Labs/Radiology: Radiology Impressions Abdomen/Pelvis CT 09/21/22 12:21 IMPRESSION: There is a periumbilical hernia containing small bowel appearing slightly larger along with some inflammatory fluid and stranding with some proximal small bowel dilatation concerning for incarceration or early strangulation. Laboratory Results WBC 8.3 10^3/uL (4.0-10.0) 09/21/22 12:20 RBC 5.14 10^6/uL (4.1-5.3) 09/21/22 12:20 Hgb 15.5 g/dL (11.5-15.3) H 09/21/22 12:20 Hct 50.0 % (37.0-47.0) H 09/21/22 12:20 MCV 97.3 fl (81-99) 09/21/22 12:20 MCH 30.2 pg (28.0-34.0) 09/21/22 12:20 MCHC 31.0 g/dL (30.0-36.0) 09/21/22 12:20 RDW 14.2 % (12.1-15.1) 09/21/22 12:20 Plt Count 221 10^3/cmm (130-400) 09/21/22 12:20 MPV 11.1 fL (7.4-10.4) H 09/21/22 12:20 Neut % (Auto) 82.8 % 09/21/22 12:20 Lymph % (Auto) 11.6 % 09/21/22 12:20 [place] % (Auto) 4.2 % 09/21/22 12:20 Eos % (Auto) 0.4 % 09/21/22 12:20 Baso % (Auto) 0.6 % 09/21/22 12:20 Neut # (Auto) 6.83 10^3/uL (1.8-7.7) 09/21/22 12:20 Lymph # (Auto) 1.0 10^3/uL (0.8-4.8) 09/21/22 12:20 [place] # (Auto) 0.4 10^3/uL (0.2-0.9) 09/21/22 12:20 Eos # (Auto) 0.0 10^3/uL (0.0-0.8) 09/21/22 12:20 Baso # (Auto) 0.1 10^3/uL (0.0-0.1) 09/21/22 12:20 Nucleated RBC % (auto) 0 % 09/21/22 12:20 Nucleated RBCs # 0.0 /100WBC 09/21/22 12:20 Sodium 134 mmol/L (136-145) L 09/21/22 12:20 Potassium 4.3 mmol/L (3.5-5.1) 09/21/22 12:20 Chloride 98 mmol/L (98-107) 09/21/22 12:20 Carbon Dioxide 27 mmol/L (22-29) 09/21/22 12:20 Anion Gap 13.3 (5-19) 09/21/22 12:20 BUN 10 mg/dL (6-20) 09/21/22 12:20 Creatinine 0.8 mg/dL (0.5-0.9) 09/21/22 12:20 GFR Calculation 73.4 mL/min (90-130) L 09/21/22 12:20 Glucose 105 mg/dL (65-115) 09/21/22 12:20 Calculated Osmolality 277 mOsm/kg (285-295) L 09/21/22 12:20 Lactic Acid 1.1 mmol/L (0.5-2.2) 09/21/22 12:20 Calcium 9.6 mg/dL (8.5-10.5) 09/21/22 12:20 Total Bilirubin 0.4 mg/dL (0.15-1.2) 09/21/22 12:20 AST 29 U/L (0-32) 09/21/22 12:20 ALT 37 U/L (0-33) H 09/21/22 12:20 Alkaline Phosphatase 93 U/L (35-105) 09/21/22 12:20 Total Protein 7.3 g/dL (6.6-8.7) 09/21/22 12:20 Albumin 3.7 g/dL (3.5-5.2) 09/21/22 12:20 Globulin 3.6 g/dL (1.3-4.6) 09/21/22 12:20 Lipase 21 U/L (13-60) 09/21/22 12:20 Discharge Plan Discharge Patient Disposition: Home Clinical Impression: Periumbilical hernia, Morbid obesity Condition: Stable Prescriptions: No Action albuterol sulfate [Ventolin HFA] 90 mcg/actuation HFA aerosol inhaler 2 puff INHALATION Q4H PRN (Reason: Shortness Of Breath) zonisamide 100 mg capsule 300 mg PO BEDTIME omeprazole magnesium [Prilosec OTC] 20 mg tablet,delayed release (DR/EC) 20 mg PO BID buspirone 15 mg tablet 15 mg PO TID Qty: 270 0RF clonazepam 1 mg tablet,disintegrating 1 mg PO DAILY PRN (Reason: anxiety) Qty: 30 0RF hydroxychloroquine 200 mg tablet 200 mg PO BID Qty: 180 0RF metoclopramide HCl 10 mg tablet 10 mg PO Q6H PRN (Reason: nausea and vomiting) Qty: 20 0RF hydrocodone-acetaminophen 5-325 mg tablet 1 tab PO Q6H PRN (Reason: pain) Qty: 14 0RF ondansetron 4 mg tablet,disintegrating 4 mg PO Q6H PRN (Reason: nausea and vomiting) Qty: 14 0RF levothyroxine 25 mcg tablet 25 mcg PO QAM pantoprazole 40 mg tablet,delayed release (DR/EC) 40 mg PO DAILY Rx Instructions: per pt not started medication as of 09/21/22 fluticasone propionate 50 mcg/actuation spray,suspension 2 spray INTRANASAL DAILY PRN (Reason: Allergy Symptoms) Ozempic 0.25 mg or 0.5 mg (2 mg/3 mL) pen injector 0.5 mg SUBCUT Q7D Rx Instructions: on methotrexate sodium 2.5 mg tablet 15 mg PO Q7D Rx Instructions: on mon folic acid 1 mg tablet 1 mg PO QAM ketoconazole 2 % cream 1 applic topical BID PRN (Reason: flares) Rx Instructions: Apply to affected areas in skin folds x3 weeks then prn for flares prazosin 2 mg capsule 2 mg PO BEDTIME Cymbalta 60 mg capsule,delayed release(DR/EC) 60 mg PO BID Voltaren Arthritis Pain 1 % gel 4 g topical QID PRN (Reason: Pain) Rx Instructions: apply to single knee, ankle, foot; for foot includes sole/toes/top of foot Discharge Orders: Discharge ED (Routine); Ordered 09/21/22 Ordered By: Yesenia Joseph Referrals: Audra Rodriguez MD [Primary Care Provider] - Discharge Diet: Advance as tolerated Discharge Activity: Resume usual activity Patient Instructions: Abdominal Hernia Coding Level of Care Code ED Kitchen Work Supervisor for Jasmine Pollock
[2022-09-21 12:03] VITALS: BP 124/95; PULSE 81; O2SAT 95
--- NOTE | 2022-09-21 12:21 | CTR_ITS ---
PROCEDURE INFORMATION: Exam: CT Abdomen And Pelvis Without Contrast Exam date and time: 09/21/2022 12:25 PM Age: 57 years old Clinical indication: Abdominal pain; Periumbilical; Prior surgery; Surgery date: 6+ months; Surgery type: Hysy, csections x2; Additional info: Abdominal pain, dry heaving, hernia.No history of trauma or recent surgery is provided. TECHNIQUE: Imaging protocol: Computed tomography of the abdomen and pelvis without contrast. 282image(s) are provided. Radiation optimization: All CT scans at this facility use at least one of these dose optimization techniques: automated exposure control; mA and/or kV adjustment per patient size (includes targeted exams where dose is matched to clinical indication); or iterative reconstruction. Other technique: Axial images are available with sagittal and coronal reconstruction views. Automated dose exposure control is utilized. The DLP is 1413.03. REPORTING DATA: Count of CT and Cardiac NM exams in prior 12 months: This patient has received [address] and 0 known cardiac nuclear medicine studies in the 12 months prior to the current study. COMPARISON: CT abdomen pelvis con [id number] 05/16/2022 7:16 PM RADIATION DOSE METRICS: Total DLP (mGy-cm): 1413 FINDINGS: Lungs: No lobar consolidation is appreciated. There is minimal subsegmental atelectasis versus post inflammatory scarring demonstrated. Liver: There appears to be some marginal hepatic steatosis. Gallbladder and bile ducts: There appears to be some trace gallbladder sludge. Pancreas: No interval pancreatic ductal dilatation or calcification is currently appreciated. Spleen: Unremarkable. Adrenal glands: Unremarkable. 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 Stomach and bowel: Some aspects of the colon are undistended. This may also be peristaltic related.There is abundant stool present limiting mucosal detail evaluation. There is a small sliding-type hiatal hernia demonstrated with slight gastroesophageal fold thickening. The stomach appears fluid filled and distended overall. There is a history of a periumbilical abdominal wall hernia left paracentral containing small bowel. Currently this appears increased for example with transverse diameter of approximately 11 cm versus previous 10 along with craniocaudal length of approximately 11 cm versus previous 9.5. In addition there is some fluid stranding within as well as at the origin with subsequent proximal small bowel dilatation and some fluid levels. Appendix: No evidence of appendicitis. Intraperitoneal space: No free air or free fluid collections are otherwise appreciated. Vasculature: No abdominal aortic aneurysmal dilatation or periaortic fluid is appreciated. Lymph nodes: There are subcentimeter predominant para-aortic and mesenteric lymph nodes overall present. Urinary bladder: The bladder is incompletely fluid filled for evaluation which may exagerate the wall thickness. This can also be seen with post inflammation sequela. Reproductive: Unremarkable as visualized. Bones/joints: Osseous alignment is maintained.No interval displaced fracture or dislocation is appreciated. There is some chronic appearing degenerative changes of the hips similar overall left more so than right with some osteochondrosis type appearance. There is some chronic spurring and disc space narrowing overall of the lumbar spine along with some posterior element hypertrophy. There appears to be some increased density or possible streak averaging about the thoracic spine canal level similar overall. Soft tissues: No radiopaque foreign body or subcutaneous emphysema is appreciated. Other findings: There is some motion artifact present. No other significant interval changes are appreciated. CT/CT abdomen pelvis wo con [id number] IMPRESSION: There is a periumbilical hernia containing small bowel appearing slightly larger along with some inflammatory fluid and stranding with some proximal small bowel dilatation concerning for incarceration or early strangulation.
[2022-09-21 12:31] LABS: Basophils # 0.1 10^3/uL (0.0-0.1); Basophils % 0.6 %; Eosinophils % 0.4 %; Hemoglobin 15.5 g/dL (11.5-15.3); Lymphocytes % 11.6 %; Mean Corpuscular Hemoglobin 30.2 pg (28.0-34.0); Mean Corpuscular Volume 97.3 fl (81-99); Mean Platelet Volume 11.1 fL (7.4-10.4); Monocytes # 0.4 10^3/uL (0.2-0.9); Monocytes % 4.2 %; Neutrophils # 6.83 10^3/uL (1.8-7.7); Neutrophils % 82.8 %; Nucleated Red Blood Cells % 0 %; Platelet Count 221 10^3/cmm (130-400); Red Blood Count 5.14 10^6/uL (4.1-5.3); Red Cell Distribution Width 14.2 % (12.1-15.1); White Blood Count 8.3 10^3/uL (4.0-10.0)
[2022-09-21 12:50] LABS: Alanine Aminotransferase 37 U/L (0-33); Albumin Level 3.7 g/dL (3.5-5.2); Alkaline Phosphatase 93 U/L (35-105); Anion Gap 13.3 (5-19); Aspartate Amino Transferase 29 U/L (0-32); Blood Urea Nitrogen 10 mg/dL (6-20); Calcium 9.6 mg/dL (8.5-10.5); Carbon Dioxide 27 mmol/L (22-29); Chloride 98 mmol/L (98-107); Globulin 3.6 g/dL (1.3-4.6); Glomerular Filtration Rate 73.4 mL/min (90-130); Glucose 105 mg/dL (65-115); Lipase 21 U/L (13-60); Osmolality Calculated 277 mOsm/kg (285-295); Potassium 4.3 mmol/L (3.5-5.1); Sodium 134 mmol/L (136-145); Total Bilirubin 0.4 mg/dL (0.15-1.2); Total Protein 7.3 g/dL (6.6-8.7)
[2022-09-21 12:51] LABS: Lactic Sepsis W/Reflex 1.1 mmol/L (0.5-2.2)
--- NOTE | 2022-09-21 16:14 | P.CONIM_ITS ---
Providers/Reason For Consult Consulting Physician/Specialty*: Dr. Leonel Hebert, DO/General surgery Reason for Consult*: Incarcerated umbilical hernia Primary Care Provider: Audra Rodriguez MD History of Present Illness History of Present Illness Stacey Drummond is a 57 year old female who is morbidly obese and presents to the hospital with a 2-day history of periumbilical abdominal pain and nausea. She had 1 episode of emesis prior to arrival to the ER. She has known incarcerated umbilical hernia. She has a surgeon for this who says he will not fix the hernia until she gets bariatric surgery and loses significant weight. She has a bariatric surgeon and is currently losing weight with Ozempic. She reports that the pain is sharp and constant, located over the umbilicus and does not radiate. Palpation makes pain worse. Nothing makes pain better. Review of Systems General: Reports: 10 or more systems reviewed and unremarkable except in HPI and below Medications/Allergies Home Medications Medication Instructions Recorded Confirmed Last Taken Type albuterol sulfate 90 mcg/actuation 2 puff inhalation Q4H PRN 04/16/19 09/21/22 Unknown History aerosol inhaler (Ventolin HFA) Shortness Of Breath zonisamide 100 mg capsule 300 mg PO BEDTIME 04/16/19 09/21/22 09/20/22 History clonazepam 1 mg disintegrating 1 mg PO DAILY PRN anxiety #30 tabs 04/25/22 0 09/21/22 Unknown Rx tablet buspirone 15 mg tablet 15 mg PO TID #270 tabs 05/09/22 09/21/22 2 Weeks Ago Rx ~09/07/22 pt stop taking 2 wee hydrocodone 5 mg-acetaminophen 325 1 tab PO Q6H PRN pain #14 tabs 05/16/22 09/21/22 09/21/22 06:00 Rx mg tablet ondansetron 4 mg disintegrating 4 mg PO Q6H PRN nausea and 05/16/22 09/21/22 Unknown Rx tablet vomiting #14 tabs omeprazole magnesium 20 mg 20 mg PO BID 08/01/22 09/21/22 09/20/22 History tablet,delayed release (Prilosec OTC) metoclopramide HCl 10 mg tablet 10 mg PO Q6H PRN nausea and 08/15/22 09/21/22 Unknown Rx vomiting #20 tabs hydroxychloroquine 200 mg tablet 200 mg PO BID #180 tabs 08/17/22 09/21/22 09/20/22 Rx just took 1 dose 6/2 diclofenac sodium 1 % topical gel 4 g topical QID PRN Pain 09/21/22 09/21/22 Unknown History (Voltaren Arthritis Pain) duloxetine 60 mg capsule,delayed 60 mg PO BID 09/21/22 09/21/22 09/20/22 History release (Cymbalta) fluticasone propionate 50 2 spray intranasal DAILY PRN 09/21/22 09/21/22 Unknown History mcg/actuation nasal Allergy Symptoms spray,suspension folic acid 1 mg tablet 1 mg PO QAM 09/21/22 09/21/22 09/20/22 History ketoconazole 2 % topical cream 1 applic topical BID PRN flares 09/21/22 09/21/22 Unknown History levothyroxine 25 mcg tablet 25 mcg PO QAM 09/21/22 09/21/22 09/20/22 History methotrexate sodium 2.5 mg tablet 15 mg PO Q7D 09/21/22 09/21/22 09/19/22 History pantoprazole 40 mg tablet,delayed 40 mg PO DAILY 09/21/22 09/21/22 Unknown History release prazosin 2 mg capsule 2 mg PO BEDTIME 09/21/22 09/21/22 09/20/22 History semaglutide 0.25 mg or 0.5 mg (2 0.5 mg SUBCUT Q7D 09/21/22 09/21/22 Unknown History mg/3 mL) subcutaneous pen injector (Ozempic) Allergies Allergy/AdvReac Type Severity Reaction Status Date / Time No Known Allergies Allergy Verified 08/15/22 12:25 PFSH Acute PFSH: Medical History Abnormal mammogram of both breasts Actinic keratosis Anxiety Borderline personality disorder COPD (chronic obstructive pulmonary disease) Depression Diabetes Fibromyalgia Generalized anxiety disorder with panic attacks Hyperglycemia Hypertension Obesity Psychiatric care PTSD (post-traumatic stress disorder) Sleep apnea Surgical History History of 1993 and 1989 History of colonoscopy History of hysterectomy 6 years ago. Hx of polyps Hx of external ear surgery Family History Father Alzheimer disease Sister Asthma Family/Other Cancer Aunt, Colon Mother Cancer Melanoma Congestive heart failure Father Cancer Melanoma Family/Other Cancer Uncle, Prostate Brother Diabetes Other Borderline personality disorder Social History Smoking and tobacco status: current every day smoker (half a pack ) cigarettes Packs smoked per day: 0.5 [ Other cigarette details: been smoking 2 months] Second hand smoke exposure: No Smoking risk assessment/counseling performed?: No Alcohol intake: current Alcohol intake frequency: holidays/special occasions only Substance/Drug Use: never Desire information about substance/drug rehabilitation?: No Counseling given: No Household members: spouse Marital status: Current gender identity: Female Vitals/I&O/Wt Last Vital Signs Temp 97.8 F 09/21/22 11:43 Pulse 81 09/21/22 12:03 Resp 18 09/21/22 11:43 BP 124/95 09/21/22 12:03 Pulse Ox 95 09/21/22 12:03 O2 Del Method Room Air 09/21/22 12:03 Weight last 48 hrs Weight 326 lb Physical Exam Narrative: General : Patient is well developed , no acute distress, oriented x3 Head : Normal cephalic, a-traumatic. Ears : Pinnae and external canal are normal. Hearing is normal. Eyes : PERRLA, Sclera and injection are normal. No conjunctival discharge. Nose : Mucous membranes are without erythema. Throat : buccal mucosa is normal, gums are without significant recession or hypertrophy. Lungs : Equal chest rise bilaterally, no use of accessory muscles, trachea is midline. Cor : Rate and rhythm are normal. Abdomen : Soft, ND, tender to palpation over and incarcerated umbilical hernia, no overlying skin changes Extremities : No edema, no cyanosis or clubbing, dorsalis pedis pulses are present bilaterally, non-tender to palpation of calves. Upper extremities are normal bilaterally. Back : non-tender to palpation, no CVA tenderness. Neuro : CN II - XII intact, Upper and lower extremities have equal and full strength Data 09/21/22 12:20 09/21/22 12:20 A&P Assessment and plan (1) Incarcerated umbilical hernia: Plan Patient was given sedation by the emergency department. I was able to manually reduce the hernia with some difficulty. Surgically stable for discharge. Follow-up with her home surgeon. She can follow-up with me as needed Coding Level of Care Code 51449 Diagnoses Incarcerated umbilical hernia K42.0
[2022-09-21] MEDS: propofol 10 mg/mL SDV 20 mL 100 MG IVP (16:33)
[2022-09-21] MEDS: propofol 10 mg/mL SDV 20 mL 200 MG ×2 (16:34)
[2022-09-21] MEDS: propofol 10 mg/mL SDV 20 mL 1000 MG IVP (16:37)
--- NOTE | 2022-09-21 16:37 | PC.NURSE ---
CONSCIOUS SEDATION TIME OUT 1510 DR. HARRINGTON, DR. TORRES, RT, AND NURSE IN ROOM. PATIENT AOX4 VITALS 130/60, 80 HR, 97% ON RA. 1512 200 PROPOFOL GIVEN 1515 200 PROPOFOL GIVEN 1520 200 PROPOFOL GIVEN 1525 500 KETAMINE GIVEN 1530 200 KETAMINE GIVEN 1540 500 PROPOFOL GIVEN 1550 PROCEDURE DONE. HERNIA REDUCED. PATIENT ON 3L NC AT 97%, 151/87 BP, 89 HR, [address] HARRINGTON GAVE ALL MEDICATION, DR. TORRES REDUCED HERNIA, RT AT BEDSIDE FOR OXYGEN.
[2022-09-21 16:43] VITALS: BP 151/87; PULSE 80; O2SAT 95
[2022-09-21 19:01] VITALS: BP 150/83; RESP 18; O2SAT 95
[2022-09-21 20:30] VITALS: BP 113/79; PULSE 93; RESP 14; O2SAT 93
[2022-09-21 20:50] VITALS: BP 148/91; PULSE 99; RESP 20; O2SAT 93
== END 2022-09-21 20:51 | disposition home or self-care (01) ==
PROVIDERS: Physician Assistant; Emergency Provider Emergency Medicine; PCP Family Medicine
DX: K42.9 Umbilical hernia without obstruction or gangrene (principal); E66.01 Morbid (severe) obesity due to excess calories; F17.210 Nicotine dependence, cigarettes, uncomplicated; Z79.899 Other long term (current) drug therapy
CPT/HCPCS: 36415; 74176; 80053; 83605; 83690; 85025; 94799; 99285; J2704; J3490

== ENCOUNTER 2022-09-22 11:22 | Outpatient (CLI) | payer MEDICARE, MEDICAID, SELFPAY ==
[2019-12-11 11:57] VITALS: BP 106/60; BMI 63.9
--- NOTE | 2022-09-22 11:34 | MM_ITS ---
WS: [id number] SCREENING DIGITAL TOMOSYNTHESIS MAMMOGRAM WITH CAD HISTORY: SCREENING COMPARISON: 03/01/2022, 09/02/2021, 04/27/2020 Bilateral CC and MLO with tomosynthesis views submitted. Synthetic mammography reviewed. Computer aid ed detection analyzed. Breast composition: There are scattered areas of fibroglandular density. No suspicious masses, microc alcifications or architectural distortion. No residual soft tissue thickening. No abnormalities are i dentified. This is a difficult examination and the entire breasts are not included due to body habitu s. MM/[place] [id number] IMPRESSION: BI-RADS: 2-Benign FOLLOW UP: 1 Year Follow-up
== END 2022-09-22 11:23 | disposition home or self-care (01) ==
LOC: RAD 11:23
PROVIDERS: PCP Family Medicine; Visit Provider Surgery
DX: R92.8 Other abnormal and inconclusive findings on diagnostic imaging of breast (principal)
CPT/HCPCS: 77063; 77067

== ENCOUNTER 2023-11-03 17:40 | Emergency (ER) | payer MEDICARE, MEDICAID, SELFPAY ==
[2023-09-26 14:01] VITALS: BP 106/60; BMI 63.9
[2023-11-03] VITALS (9 sets, daily range): BP systolic 135–175; BP diastolic 68–132; PULSE 63–82; RESP 15–20; TEMP 36.4; O2SAT 86–100; BMI 64.0
--- NOTE | 2023-11-03 18:29 | CTR_ITS ---
PROCEDURE INFORMATION: Exam: CT Abdomen And Pelvis Without Contrast Exam date and time: 11/03/2023 7:14 PM Age: 58 years old Clinical indication: Nausea and vomiting; Abdominal pain; Generalized; Prior surgery; Surgery date: 6+ months; Surgery type: Hysterectomy. Csection. Patient HX: Diffuse abd pain with n/v. Known ventral hernia. ; Additional info: Abdominal pain; Known hernia TECHNIQUE: Imaging protocol: Computed tomography of the abdomen and pelvis without contrast. Radiation optimization: All CT scans at this facility use at least one of these dose optimization techniques: automated exposure control; mA and/or kV adjustment per patient size (includes targeted exams where dose is matched to clinical indication); or iterative reconstruction. COMPARISON: CT abdomen pelvis wo con [id number] 09/21/2022 12:25 PM RADIATION DOSE METRICS: Total DLP (mGy-cm): 1626.21 FINDINGS: Lungs: Mild atelectasis of the lung bases. Heart: Cardiomegaly. Liver: Hepatomegaly measuring up to 25 cm. Hepatic steatosis. Gallbladder and biliary ducts: Normal. No calcified stones. No ductal dilation. Pancreas: Normal. No ductal dilation. Spleen: Normal. No splenomegaly. Adrenal glands: Normal. No mass. Kidneys and ureters: Unchanged 2.5 cm angiomyolipoma within the lower pole of the right kidney. Unchanged 1.5 cm partially calcified exophytic lesion off of the inferior pole of the right kidney. No hydronephrosis bilaterally. Stomach and bowel: There is a moderately sized lower abdominal ventral hernia containing multiple dilated loops of small bowel tapering to a transition point. There are multiple dilated loops of small bowel proximally measuring up to 3.5 cm with air-fluid levels and fecalization of stool. Diverticulosis without evidence of diverticulitis. Appendix: No evidence of appendicitis. Intraperitoneal space: Unremarkable. No free air. No significant fluid collection. Vasculature: Unremarkable. No abdominal aortic aneurysm. Lymph nodes: Unremarkable. No enlarged lymph nodes. Urinary bladder: Unremarkable as visualized. Reproductive: Unremarkable as visualized. Bones/joints: Moderate multilevel spondylosis. Soft tissues: There is a moderately sized lower abdominal ventral hernia containing multiple dilated loops of small bowel tapering to a transition point. CT/CT abdomen pelvis wo con [id number] IMPRESSION: 1. There is evidence of small bowel obstruction with a transition point located within the moderately sized ventral abdominal wall hernia. There are multiple dilated loops of small bowel proximally measuring up to 2.5 cm with air-fluid levels. No pneumoperitoneum. 2. Unchanged 2.5 cm angiomyolipoma within the lower pole of the right kidney. Unchanged 1.5 cm partially calcified exophytic lesion off of the inferior pole of the right kidney. COMMENT: THIS REPORT CONTAINS FINDINGS THAT MAY BE CRITICAL TO PATIENT CARE. The exam findings were verbally communicated by me to Megan Phelan via telephone conference at 7:53 PM CDT on 11/03/2023. The findings were acknowledged and understood.
--- NOTE | 2023-11-03 18:30 | ED_ITS ---
HPI - Abdominal Pain 2 General: Chief Complaint: Abdominal Pain Stated Complaint: abd pain Time Seen by Provider: 11/03/23 17:42 Source: patient Mode of arrival: EMS Limitations: no limitations History of Present Illness: Patient is a 57-year-old female presents to ED today with a complaint of abdominal pain. Report chronic bloating/belching but pain is new today. She feels like she is having a difficult time having a bowel movement and passing gas. She has a known large ventral hernia in which she has met with general surgery in [place] who will not repair until she loses weight. She is being followed with bariatric surgery and was on Ozempic for weight loss. Patient is not running fevers. She has not had any episodes of emesis. Last colonoscopy was in 2019. Polyp was removed-pathology report showing hyperplastic polyp with no malignancy identified. MD elicited complaint: abdominal pain Onset (ago): day(s) Pain Consistency: constant Location: Diffuse Severity: moderate Radiation: none Migration to: no migration Exacerbating factors: nothing Relieving factors: nothing Associated Symptoms: Reports bloating and nausea; Denies chills, dysuria, fever(s), hematochezia, hematemesis, melena and vomiting Related Data Home Medications Medication Instructions Recorded Confirmed albuterol sulfate 90 mcg/actuation 2 puff inhalation Q4H PRN 04/16/19 08/30/23 aerosol inhaler (Ventolin HFA) Shortness Of Breath zonisamide 100 mg capsule 300 mg PO BEDTIME 04/16/19 08/30/23 diclofenac sodium 1 % topical gel 4 g topical QID PRN Pain 09/21/22 08/30/23 (Voltaren Arthritis Pain) fluticasone propionate 50 2 spray intranasal DAILY PRN 09/21/22 08/30/23 mcg/actuation nasal Allergy Symptoms spray,suspension ketoconazole 2 % topical cream 1 applic topical BID PRN flares 09/21/22 08/30/23 levothyroxine 25 mcg tablet 25 mcg PO QAM 09/21/22 08/30/23 pantoprazole 40 mg tablet,delayed 40 mg PO DAILY 09/21/22 08/30/23 release Previous Rx's Medication Instructions Recorded ondansetron 4 mg disintegrating 4 mg PO Q6H PRN nausea and 05/16/22 tablet vomiting #14 tabs duloxetine 60 mg capsule,delayed See Rx Instructions .Route 08/30/23 release .COMPLEX #180 caps fluoxetine 20 mg capsule (Prozac) 20 mg PO DAILY #30 caps 08/30/23 prazosin 2 mg capsule 2 mg PO BEDTIME #30 caps 08/30/23 clonazepam 1 mg disintegrating 1 mg PO DAILY PRN anxiety #30 tabs 10/09/23 tablet Allergies Allergy/AdvReac Type Severity Reaction Status Date / Time No Known Allergies Allergy Verified 11/03/23 17:51 Review of Systems 2 Const: Denies: fever(s), chills, body aches, fatigue or malaise Card: Denies: chest pain Resp: Denies: dyspnea GI: Reports: abdominal pain, nausea and bloating; Denies: vomiting, hematemesis, hematochezia or melena : Denies: flank pain, difficulty voiding, dysuria, urinary frequency, urinary urgency or urinary hesitancy Musc: Denies: neck pain, back pain, extremity pain or joint pain Skin/Breast: Denies: rash Neuro: Denies: headache(s), numbness in extremities, weakness in extremities, sensory changes or dizziness PFSH ED 2 PFSH: Medical History Nicotine use disorder Abnormal mammogram of both breasts Psychiatric care Generalized anxiety disorder with panic attacks Anxiety Actinic keratosis Borderline personality disorder COPD (chronic obstructive pulmonary disease) Depression Fibromyalgia Hyperglycemia Hypertension Obesity Sleep apnea PTSD (post-traumatic stress disorder) Diabetes Surgical History History of hysterectomy 6 years ago. Hx of polyps History of colonoscopy History of 1993 and 1989 Hx of external ear surgery Family History Father Alzheimer disease Sister Asthma Family/Other Cancer Aunt, Colon Mother Cancer Melanoma Congestive heart failure (CHF) Father Cancer Melanoma Family/Other Cancer Uncle, Prostate Brother Diabetes Other Borderline personality disorder Social History Smoking and tobacco/nicotine status: current every day tobacco/nicotine user cigarettes Packs smoked per day: 0.5 [ Other cigarette details: been smoking 2 months] Second hand smoke exposure: No Alcohol intake: current Alcohol intake frequency: holidays/special occasions only Substance/Drug Use: never Household members: spouse Marital status: Current gender identity: Female Physical Exam 2 Const: COMMON NORMALS: patient oriented x3 and alert GENERAL APPEARANCE: c ooperative NUTRITIONAL APPEARANCE: obese morbidly obese (BMI is 64) O RIENTATION/CONSCIOUSNESS: Yes awake, Yes oriented to person, Yes oriented to place and Yes oriented to time OTHER: drowsy; states she took a clonazepam prior to arrival Eye: COMMON NORMALS: no scleral icterus Resp: COMMON NORMALS: normal respiratory effort and clear to auscultation bilaterally AUSCULTATION: clear to auscultation bilaterally Cardio: COMMON NORMALS: regular rate and regular rhythm RATE: regular rate RHYTHM: regular rhythm GI: COMMON NORMALS: Soft to palpation INSPECTION: Yes normal to inspection and Yes central obesity PALPATION: Yes Soft to palpation OTHER: exam limited due to super morbid obesity status : COMMON NORMALS: Yes no CVA tenderness BLADDER/KIDNEY EXAM: Yes no CVA tenderness Back/Pelvis: COMMON NORMALS: no CVA tenderness Neuro: COMMON NORMALS: patient oriented x3 SENSORIUM/ORIENTATION: Yes alert, Yes oriented to person, Yes oriented to place and Yes oriented to time Course 2 Consultations: Consultation #1: Dr. Aden[facility] there is no indication for transfer Consultation #2: Dr. Ochoa[facility]-accepts patient Vital Signs: Vital signs: Vital Signs Temperature 97.5 F L 11/03/23 17:41 Pulse Rate 69 11/03/23 22:00 Respiratory Rate 16 11/03/23 22:00 Blood Pressure 135/88 11/03/23 22:00 Pulse Oximetry 100 11/03/23 22:00 Oxygen Delivery Me thod Nasal Cannula 11/03/23 22:00 Oxygen Flow Rate 2 11/03/23 20:36 MDM - Abdominal Pain Medical Decision Making Patient is a 58-year-old female with multiple comorbidities including super morbidly obese with a BMI of 64 here for incarcerated ventral hernia. She has been evaluated here in our emergency department by our general surgeon, Dr. Banegas. Please see his note for his assessment and recommendation for transfer. I have spoken to Jan who has accepted patient. NG tube placed here. Medical Records I reviewed the patient's medical records. Lab Data I reviewed the patient's lab results. 11/03/23 18:30 11/03/23 18:30 Labs/Radiology: Radiology Impressions Abdomen/Pelvis CT 11/03/23 18:29 IMPRESSION: 1. There is evidence of small bowel obstruction with a transition point located within the moderately sized ventral abdominal wall hernia. There are multiple dilated loops of small bowel proximally measuring up to 2.5 cm with air-fluid levels. No pneumoperitoneum. 2. Unchanged 2.5 cm angiomyolipoma within the lower pole of the right kidney. Unchanged 1.5 cm partially calcified exophytic lesion off of the inferior pole of the right kidney. COMMENT: THIS REPORT CONTAINS FINDINGS THAT MAY BE CRITICAL TO PATIENT CARE. The exam findings were verbally communicated by me to Megan Phelan via telephone conference at 7:53 PM CDT on 11/03/2023. The findings were acknowledged and understood. ADDENDUM: 11/03/231955 Please note the impression should read small bowel loops are dilated up to 3.5 cm. Laboratory Results WBC 12.65 10^3/uL (3.29-11.43) H 11/03/23 18:30 RBC 4.83 10^6/uL (3.85-5.65) 11/03/23 18:30 Hgb 14.00 g/dL (11.27-16.99) 11/03/23 18:30 Hct 46.1 % (36-47) 11/03/23 18:30 MCV 95.4 fl (85-98) 11/03/23 18:30 MCH 29.0 pg (27-33) 11/03/23 18:30 MCHC 30.4 g/dL (30-55) 11/03/23 18:30 RDW 13.7 % (12.1-15.1) 11/03/23 18:30 Plt Count 272 10^3/cmm (157-399) 11/03/23 18:30 MPV 10.5 fL (7.4-10.4) H 11/03/23 18:30 Neut % (Auto) 76.9 % 11/03/23 18:30 Lymph % (Auto) 14.8 % 11/03/23 18:30 [place] % (Auto) 5.3 % 11/03/23 18:30 Eos % (Auto) 1.7 % 11/03/23 18:30 Baso % (Auto) 0.7 % 11/03/23 18:30 Neut # (Auto) 9.73 10^3/uL (1.8-7.7) H 11/03/23 18:30 Lymph # (Auto) 1.9 10^3/uL (0.8-4.8) 11/03/23 18:30 [place] # (Auto) 0.7 10^3/uL (0.2-0.9) 11/03/23 18:30 Eos # (Auto) 0.2 10^3/uL (0.0-0.8) 11/03/23 18:30 Baso # (Auto) 0.1 10^3/uL (0.0-0.1) 11/03/23 18:30 Nucleated RBC % (auto) 0 % 11/03/23 18:30 Nucleated RBCs # 0.0 /100WBC 11/03/23 18:30 Sodium 139 mmol/L (136-145) 11/03/23 18:30 Potassium 4.2 mmol/L (3.5-5.1) 11/03/23 18:30 Chloride 103 mmol/L (98-107) 11/03/23 18:30 Carbon Dioxide 27 mmol/L (22-29) 11/03/23 18:30 Anion Gap 13.2 (5-19) 11/03/23 18:30 BUN 12 mg/dL (8-23) 11/03/23 18:30 Creatinine 1.0 mg/dL (0.5-0.9) H 11/03/23 18:30 GFR Calculation 56.6 mL/min (90-130) L 11/03/23 18:30 Glucose 116 mg/dL (65-115) H 11/03/23 18:30 Calculated Osmolality 289 mOsm/kg (285-295) 11/03/23 18:30 Lactic Acid 0.7 mmol/L (0.5-2.2) 11/03/23 18:30 Calcium 9.3 mg/dL (8.5-10.5) 11/03/23 18:30 Total Bilirubin 0.2 mg/dL (0.15-1.2) 11/03/23 18:30 AST 11 U/L (0-32) 11/03/23 18:30 ALT 9 U/L (0-33) 11/03/23 18:30 Alkaline Phosphatase 81 U/L (35-105) 11/03/23 18:30 Total Protein 7.2 g/dL (6.6-8.7) 11/03/23 18:30 Albumin 3.7 g/dL (3.5-5.2) 11/03/23 18:30 Globulin 3.5 g/dL (1.3-4.6) 11/03/23 18:30 Lipase 16 U/L (13-60) 11/03/23 18:30 Urine Color Yellow (Yellow) 11/03/23 20:00 Urine Appearance Clear (CLEAR) 11/03/23 20:00 Urine pH 6.5 (5-7) 11/03/23 20:00 Ur Specific [place] 1.015 (1.005-1.030) 11/03/23 20:00 Urine Protein Negative (Negative) 11/03/23 20:00 Urine Glucose (UA) Negative (Normal) 11/03/23 20:00 Urine Ketones Negative (Negative) 11/03/23 20:00 Urine Blood Negative (Negative) 11/03/23 20:00 Urine Nitrate Negative (Negative) 11/03/23 20:00 Urine Bilirubin Negative (Negative) 11/03/23 20:00 Urine Urobilinogen 1.0 mg/dL (Negative) 11/03/23 20:00 Ur Leukocyte Esterase Trace (Negative) A 11/03/23 20:00 Urine RBC 0-2 /hpf (0-2) 11/03/23 20:00 Urine WBC 11-20 /hpf (0-5) H 11/03/23 20:00 Ur Squamous Epith Cells 6-10 /hpf (0-5) 11/03/23 20:00 Amorphous Sediment Not Reportable 11/03/23 20:00 Urine Bacteria 3+ /hpf (NONE) H 11/03/23 20:00 Hyaline Casts 0.81 /lpf 11/03/23 20:00 All radiology interpretation(s) finalized by discharge Discharge Plan Discharge Patient Disposition: Xfer Short-Term Hosp Clinical Impression: Incarcerated ventral hernia, Small bowel obstruction Condition: Stable Prescriptions: No Action albuterol sulfate [Ventolin HFA] 90 mcg/actuation HFA aerosol inhaler 2 puff INHALATION Q4H PRN (Reason: Shortness Of Breath) zonisamide 100 mg capsule 300 mg PO BEDTIME fluoxetine [Prozac] 20 mg capsule 20 mg PO DAILY Qty: 30 2RF prazosin 2 mg capsule 2 mg PO BEDTIME Qty: 30 2RF duloxetine 60 mg capsule,delayed release(DR/EC) See Rx Instructions .ROUTE .COMPLEX Qty: 180 0RF Dose Instruction: TAKE 1 CAPSULE BY MOUTH TWICE A DAY Rx Instructions: TAKE 1 CAPSULE BY MOUTH TWICE A DAY clonazepam 1 mg tablet,disintegrating 1 mg PO DAILY PRN (Reason: anxiety) Qty: 30 0RF ondansetron 4 mg tablet,disintegrating 4 mg PO Q6H PRN (Reason: nausea and vomiting) Qty: 14 0RF levothyroxine 25 mcg tablet 25 mcg PO QAM pantoprazole 40 mg tablet,delayed release (DR/EC) 40 mg PO DAILY Rx Instructions: per pt not started medication as of 09/21/22 fluticasone propionate 50 mcg/actuation spray,suspension 2 spray INTRANASAL DAILY PRN (Reason: Allergy Symptoms) ketoconazole 2 % cream 1 applic topical BID PRN (Reason: flares) Rx Instructions: Apply to affected areas in skin folds x3 weeks then prn for flares Voltaren Arthritis Pain 1 % gel 4 g topical QID PRN (Reason: Pain) Rx Instructions: apply to single knee, ankle, foot; for foot includes sole/toes/top of foot Referrals: Audra Rodriguez MD [Primary Care Provider] - Coding Level of Care Code ED Incinerator Attendant for Jasmine Pollock
[2023-11-03 18:36] LABS: Basophils # 0.1 10^3/uL (0.0-0.1); Basophils % 0.7 %; Eosinophils # 0.2 10^3/uL (0.0-0.8); Eosinophils % 1.7 %; Hematocrit 46.1 % (36-47); Lymphocytes # 1.9 10^3/uL (0.8-4.8); Lymphocytes % 14.8 %; Mean Corpuscular HGB Conc 30.4 g/dL (30-55); Mean Corpuscular Volume 95.4 fl (85-98); Mean Platelet Volume 10.5 fL (7.4-10.4); Monocytes # 0.7 10^3/uL (0.2-0.9); Monocytes % 5.3 %; Neutrophils # 9.73 10^3/uL (1.8-7.7); Neutrophils % 76.9 %; Nucleated Red Blood Cells % 0 %; Platelet Count 272 10^3/cmm (157-399); Red Blood Count 4.83 10^6/uL (3.85-5.65); Red Cell Distribution Width 13.7 % (12.1-15.1); White Blood Count 12.65 10^3/uL (3.29-11.43)
[2023-11-03] MEDS: ondansetron 2 mg/ML SDV 2 mL 4 MG IVP (18:45)
[2023-11-03] MEDS: morphine 4 mg/mL SDV 1 mL IVP (18:45)
[2023-11-03 18:53] LABS: Alanine Aminotransferase 9 U/L (0-33); Albumin Level 3.7 g/dL (3.5-5.2); Alkaline Phosphatase 81 U/L (35-105); Blood Urea Nitrogen 12 mg/dL (8-23); Calcium 9.3 mg/dL (8.5-10.5); Carbon Dioxide 27 mmol/L (22-29); Chloride 103 mmol/L (98-107); Creatinine Clr Calc Pharmacy 88.3649; Globulin 3.5 g/dL (1.3-4.6); Glomerular Filtration Rate 56.6 mL/min (90-130); Glucose 116 mg/dL (65-115); Lipase 16 U/L (13-60); Osmolality Calculated 289 mOsm/kg (285-295); Sodium 139 mmol/L (136-145); Total Bilirubin 0.2 mg/dL (0.15-1.2); Total Protein 7.2 g/dL (6.6-8.7)
[2023-11-03 18:54] LABS: Anion Gap 13.2 (5-19); Aspartate Amino Transferase 11 U/L (0-32); Potassium 4.2 mmol/L (3.5-5.1)
[2023-11-03 20:07] LABS: Charge for UA Resulting for Rev
[2023-11-03 20:09] LABS: Bilirubin Urine Negative (Negative); Blood Urine Negative (Negative); Glucose Urine UA Negative (Normal); Ketones Urine Negative (Negative); Leukocyte Esterase Urine Trace (Negative); Nitrate Urine Negative (Negative); Protein Urine Negative (Negative); Specific Gravity, Urine 1.015 (1.005-1.030); Urine Appearance Clear (CLEAR); Urine Color Yellow (Yellow); pH Urine 6.5 (5-7)
[2023-11-03 20:10] LABS: Lactic Sepsis W/Reflex 0.7 mmol/L (0.5-2.2)
[2023-11-03 20:11] LABS: Bacteria Urine 3+ /hpf; Hyaline Casts Urine 0.81 /lpf; RBC Urine 0-2 /hpf (0-2)
--- NOTE | 2023-11-03 20:22 | P.CONIM_ITS ---
Providers/Reason For Consult 2 Consulting Physician/Specialty*: General surgery Reason for Consult*: Incarcerated abdominal wall hernia with obstruction Primary Care Provider: Audra Rodriguez MD History of Present Illness History of Present Illness Stacey Drummond is a 58 year old superobese female with a BMI of 64 who has a abdominal wall hernia for the last 20 years, she has been evaluated by several surgeons who had recommended immediate weight loss before any kind of repair. She has presented in the past with this obstruction due to the hernia at the time her hernia was reduced. Presents with significant abdominal pain, dry heaving but no vomiting, has been also complaining of constipation. I was consulted after a CT scan of the abdomen pelvis showed a large abdominal wall hernia with an apparent transition point inside of the hernia sac. Review of Systems 2 General: Reports: 10 or more systems reviewed and unremarkable except in HPI and below Medications/Allergies Home Medications Medication Instructions Recorded Confirmed Last Taken Type albuterol sulfate 90 mcg/actuation 2 puff inhalation Q4H PRN 04/16/19 08/30/23 Unknown History aerosol inhaler (Ventolin HFA) Shortness Of Breath zonisamide 100 mg capsule 300 mg PO BEDTIME 04/16/19 08/30/23 09/20/22 History ondansetron 4 mg disintegrating 4 mg PO Q6H PRN nausea and 05/16/22 08/30/23 Unknown Rx tablet vomiting #14 tabs diclofenac sodium 1 % topical gel 4 g topical QID PRN Pain 09/21/22 08/30/23 Unknown History (Voltaren Arthritis Pain) fluticasone propionate 50 2 spray intranasal DAILY PRN 09/21/22 08/30/23 Unknown History mcg/actuation nasal Allergy Symptoms spray,suspension ketoconazole 2 % topical cream 1 applic topical BID PRN flares 09/21/22 08/30/23 Unknown History levothyroxine 25 mcg tablet 25 mcg PO QAM 09/21/22 08/30/23 09/20/22 History pantoprazole 40 mg tablet,delayed 40 mg PO DAILY 09/21/22 08/30/23 Unknown History release duloxetine 60 mg capsule,delayed See Rx Instructions .Route 08/30/23 08/30/23 Unknown Rx release .COMPLEX #180 caps fluoxetine 20 mg capsule (Prozac) 20 mg PO DAILY #30 caps 08/30/23 08/30/23 Unknown Rx prazosin 2 mg capsule 2 mg PO BEDTIME #30 caps 08/30/23 08/30/23 Unknown Rx clonazepam 1 mg disintegrating 1 mg PO DAILY PRN anxiety #30 tabs 10/09/23 Unknown Rx tablet Allergies Allergy/AdvReac Type Severity Reaction Status Date / Time No Known Allergies Allergy Verified 11/03/23 17:51 PFSH Acute 2 PFSH: Medical History Nicotine use disorder Abnormal mammogram of both breasts Psychiatric care Generalized anxiety disorder with panic attacks Anxiety Actinic keratosis Borderline personality disorder COPD (chronic obstructive pulmonary disease) Depression Fibromyalgia Hyperglycemia Hypertension Obesity Sleep apnea PTSD (post-traumatic stress disorder) Diabetes Surgical History History of hysterectomy 6 years ago. Hx of polyps History of colonoscopy History of 1993 and 1989 Hx of external ear surgery Family History Father Alzheimer disease Sister Asthma Family/Other Cancer Aunt, Colon Mother Cancer Melanoma Congestive heart failure (CHF) Father Cancer Melanoma Family/Other Cancer Uncle, Prostate Brother Diabetes Other Borderline personality disorder Social History Smoking and tobacco/nicotine status: current every day tobacco/nicotine user cigarettes Packs smoked per day: 0.5 [ Other cigarette details: been smoking 2 months] Second hand smoke exposure: No Alcohol intake: current Alcohol intake frequency: holidays/special occasions only Substance/Drug Use: never Household members: spouse Marital status: Current gender identity: Female Vitals/I&O/Wt Last Vital Signs Temp 97.5 F L 11/03/23 17:41 Pulse 64 11/03/23 19:34 Resp 16 11/03/23 19:34 BP 160/86 11/03/23 19:34 Pulse Ox 95 11/03/23 19:34 O2 Del Method Nasal Cannula 11/03/23 19:34 O2 Flow Rate 2 11/03/23 19:34 Weight last 48 hrs Weight 350 lb Physical Exam 2 Narrative: General : Patient appears unwell, with possible neglect of self-care Head : Normal cephalic, a-traumatic. Nose : Mucous membranes are without erythema. Lungs : Equal chest rise bilaterally, no use of accessory muscles, trachea is midline. CV : Rate and rhythm are normal. Abdomen : Abdomen is distended, morbidly obese, patient does have a large ventral hernia in the infraumbilical location, the hernia is incarcerated, patient does not tolerate maneuvers to reduce complaints of pain when doing this. Extremities: There is bilateral lower extremity edema Data 11/03/23 18:30 11/03/23 18:30 A&P Assessment and plan (1) Incarcerated ventral hernia: (2) Small bowel obstruction: Plan This is a 58-year-old female, morbidly obese, with a BMI of 64 who presents with intestinal obstruction due to an incarcerated ventral hernia. I evaluated the patient at the bedside, she is currently stable no peritoneal signs, the hernia is soft but is unable to be reduced due to patient poor tolerance. I have personally reviewed the imaging, there is a large ventral abdominal wall hernia, the distance between rectus muscles in the lower abdomen at the level of the hernia is about 7.5 cm, the abdomen appears severely distended by the viscera, my main concern with this findings is that it might be impossible to reduce the complete hernia contents inside of the abdominal cavity and provide closure without the need of bridging or component separation, patient may also require management of open abdomen in the case of difficulty achieving full close or after reduction with posterior reconstruction. This assessment is supported by the fact that the patient is superobese and the hernia has more than [address], which increases the likelihood of lack of intra-abdominal space to reduce the hernia. Having this in consideration I think the most appropriate step will be transfer of this patient to higher level of care where there is availability of a specialized care including possibility of management of open abdomen, availability of biosynthetic or biologic mesh that can be used for bridging in the case of being unable to approximate the hernia defect, and expertise in case of the need of a component separation in the morbidly obese patient. At the moment of my evaluation patient is stable for transfer without signs of perforation and with a CAT scan that does not show evidence of free air. In the interim my recommendation is to proceed with NG tube decompression to prevent the risk of progression to intestinal ischemia and perforation. Coding Level of Care Code 91643 Diagnoses Incarcerated ventral hernia K43.6 Small bowel obstruction K56.609
[2023-11-03] MEDS: LORazepam 2 mg/mL INJ 1 mL 1 MG IVP (23:00)
--- NOTE | 2023-11-03 23:13 | XRR_ITS ---
PROCEDURE INFORMATION: Exam: XR Chest Exam date and time: 11/03/2023 11:14 PM Age: 58 years old Clinical indication: Device placement; Ng tube; Patient HX: Check S/P ng placement TECHNIQUE: Imaging protocol: Radiologic exam of the chest. Views: 1 view. COMPARISON: CR XR chest 2V* [id number] 05/19/2019 11:53 AM FINDINGS: Tubes, catheters and devices: NG tube tip overlies the expected region of the stomach. Lungs: The lungs are adequately expanded. No focal consolidations or pulmonary edema. Mild left basilar atelectasis. Pleural spaces: No pleural effusions or pneumothorax. Heart/Mediastinum: No cardiomegaly. Bones/joints: No acute fractures. Chronic left rib deformities. XR/XR chest 1V portable [id number] IMPRESSION: 1. NG tube tip overlies the expected region of the stomach. 2. Mild basilar atelectasis.
[2023-11-04] VITALS: PULSE 79; RESP 25; O2SAT 95
[2023-11-04] MEDS: sodium chloride 0.9% 1,000 ML 999 ML IV (00:24)
[2023-11-04 01:00] VITALS: PULSE 85; RESP 18; O2SAT 93
[2023-11-04 02:00] VITALS: PULSE 85; RESP 16; RESP 17; O2SAT 93
[2023-11-04] MEDS: morphine 4 mg/mL SDV 1 mL IVP (02:00)
[2023-11-04] MEDS: HYDROmorphone 1 mg/mL INJ 1 mL 0.5 MG IVP (03:19)
--- NOTE | 2023-11-04 03:20 | PC.NURSE ---
Contacted [id number] for flight transport of this pt to [place], [id number] accepted pending the pt fits into the a/c
[2023-11-04 03:34] VITALS: BP 145/87; PULSE 93; RESP 20; O2SAT 93
[2023-11-04 04:41] VITALS: PULSE 90; RESP 21; O2SAT 92
== END 2023-11-04 04:56 | disposition short-term general hospital (02) ==
PROVIDERS: Emergency Provider Physician Assistant; PCP Family Medicine
DX: K43.6 Other and unspecified ventral hernia with obstruction, without gangrene (principal); K56.609 Unspecified intestinal obstruction, unspecified as to partial versus complete obstruction; E66.01 Morbid (severe) obesity due to excess calories; Z68.44 Body mass index [BMI] 60.0-69.9, adult; F17.210 Nicotine dependence, cigarettes, uncomplicated; E11.9 Type 2 diabetes mellitus without complications; I10 Essential (primary) hypertension
CPT/HCPCS: 71045; 74176; 80053; 81003; 81015; 83605; 83690; 85025; 96361; 96374; 96375; 96376; 99285; J1170; J2060; J2270; J2405; J7030

== ENCOUNTER 2023-12-04 11:27 | Emergency (ER) | payer MEDICARE, MEDICAID, SELFPAY ==
[2023-09-26 14:01] VITALS: BP 106/60; BMI 63.9
[2023-12-04 11:33] VITALS: BP 122/71; PULSE 80; RESP 18; TEMP 36.8; O2SAT 95; BMI 63.8
--- NOTE | 2023-12-04 11:40 | CTR_ITS ---
PROCEDURE INFORMATION: Exam: CT Abdomen And Pelvis Without Contrast Exam date and time: 12/04/2023 1:57 PM Age: 58 years old Clinical indication: Abdominal pain; Prior surgery; Surgery date: 1-6 months; Surgery type: Hernia; Additional info: Post op wound dehiscence and pain TECHNIQUE: Imaging protocol: Computed tomography of the abdomen and pelvis without contrast. Radiation optimization: All CT scans at this facility use at least one of these dose optimization techniques: automated exposure control; mA and/or kV adjustment per patient size (includes targeted exams where dose is matched to clinical indication); or iterative reconstruction. COMPARISON: CT abdomen pelvis wo con [id number] 11/03/2023 7:14 PM RADIATION DOSE METRICS: Total DLP (mGy-cm): 1900 FINDINGS: Lungs: Subsegmental atelectasis right lung base. Diaphragm: Tiny hiatal hernia. Liver: Hepatomegaly. No focal lesion. Gallbladder and biliary ducts: Normal. No calcified stones. No ductal dilation. Pancreas: Normal. No ductal dilation. Spleen: Normal. No splenomegaly. Adrenal glands: Normal. No mass. 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 Benign-appearing right renal cysts are present. No renal or ureteral calculi or obstruction bilaterally. Stomach and bowel: Gas distends several large bowel loops, similar to prior. No distinct evidence of bowel obstruction. Appendix: No evidence of appendicitis. Intraperitoneal space: Unremarkable. No free air. No significant fluid collection. Vasculature: Unremarkable. No abdominal aortic aneurysm. Lymph nodes: Unremarkable. No enlarged lymph nodes. Urinary bladder: Unremarkable as visualized. Reproductive: Unremarkable as visualized. Bones/joints: See Soft tissues finding. No acute osseous abnormality. Soft tissues: Thinning and possible mild dehiscence of the midline rectus musculature noted. Prior umbilical hernia in the paramedian left ventral abdominal wall has apparently been surgically repaired. There is a round, hyperattenuating collection in the midline infraumbilical ventral abdominal wall measuring approximately 7.4 x 12.5 x 11.3 cm(AP x CC x TV). Associated mild overlying umbilical skin thickening and irregularity suggestive of wound. Note made of mild extension of the inflammatory change deep to the ventral abdominal wall into the properitoneal at that level (image 65 series 4). Mild stranding in the left ventral abdominal wall rectus musculature. CT/CT abdomen pelvis wo con [id number] IMPRESSION: 1. Round, hyperattenuating collection in the midline infraumbilical ventral abdominal wall measuring approximately 7.4 x 12.5 x 11.3 cm(AP x CC x TV). Suspicious for hematoma/abscess, given history. Recommend correlation. 2. Mild inflammatory change extends deep into the properitoneal fat in the level of the umbilicus. COMMENTS: Consistent with the [employer]'s Incidental Findings Committee white paper (J Am Javier Radiol 2018): Any incidental renal lesion less than 1 cm or classified as too small to characterize, or any incidental cystic renal lesion characterized as simple-appearing, is likely benign. No follow-up imaging is recommended for these lesions per consensus recommendations based on imaging criteria.
--- NOTE | 2023-12-04 11:44 | ED_ITS ---
HPI - Wound/Laceration 2 General: Chief Complaint: Wound/Laceration Stated Complaint: stitches coming out Time Seen by Provider: 12/04/23 11:29 Source: patient Mode of arrival: ambulatory Limitations: no limitations History of Present Illness: 58-year-old female who had surgery last month for hernia repair from an incarcerated hernia she states she had her sutures removed last week states she is having some dehiscence of her wound around her bellybutton. She states she has had some slight drainage she denies any fevers denies any pain. Associated symptoms: Denies chills, fever(s), nausea or vomiting Related Data Home Medications Medication Instructions Recorded Confirmed zonisamide 100 mg capsule 300 mg PO BEDTIME 04/16/19 12/04/23 diclofenac sodium 1 % topical gel 4 g topical QID PRN Pain 09/21/22 12/04/23 (Voltaren Arthritis Pain) fluticasone propionate 50 2 spray intranasal DAILY PRN 09/21/22 12/04/23 mcg/actuation nasal Allergy Symptoms spray,suspension ketoconazole 2 % topical cream 1 applic topical BID PRN flares 09/21/22 12/04/23 levothyroxine 25 mcg tablet 25 mcg PO QAM 09/21/22 12/04/23 pantoprazole 40 mg tablet,delayed 40 mg PO DAILY 09/21/22 12/04/23 release duloxetine 60 mg capsule,delayed 60 mg PO BID 12/04/23 12/04/23 release oxycodone 5 mg tablet 5 mg PO Q6H PRN Pain 12/04/23 12/04/23 Previous Rx's Medication Instructions Recorded ondansetron 4 mg disintegrating 4 mg PO Q6H PRN nausea and 05/16/22 tablet vomiting #14 tabs fluoxetine 20 mg capsule (Prozac) 20 mg PO DAILY #30 caps 08/30/23 prazosin 2 mg capsule 2 mg PO BEDTIME #30 caps 08/30/23 clonazepam 1 mg disintegrating 1 mg PO DAILY PRN anxiety #30 tabs 10/09/23 tablet Allergies Allergy/AdvReac Type Severity Reaction Status Date / Time No Known Allergies Allergy Verified 11/03/23 17:51 Review of Systems 2 Const: Denies: fever(s), chills, body aches or change in appetite ENMT: Denies: throat pain or dental pain Card: Denies: chest pain Resp: Denies: dyspnea GI: Reports: abdominal pain; Denies: nausea, vomiting or diarrhea Musc: Denies: neck pain or back pain Skin/Breast: Denies: rash Neuro: Denies: headache(s) PFSH ED 2 PFSH: Medical History Nicotine use disorder Abnormal mammogram of both breasts Psychiatric care Generalized anxiety disorder with panic attacks Anxiety Actinic keratosis Borderline personality disorder COPD (chronic obstructive pulmonary disease) Depression Fibromyalgia Hyperglycemia Hypertension Obesity Sleep apnea PTSD (post-traumatic stress disorder) Diabetes Surgical History History of hysterectomy 6 years ago. Hx of polyps History of colonoscopy History of 1993 and 1989 Hx of external ear surgery Family History Father Alzheimer disease Sister Asthma Family/Other Cancer Aunt, Colon Mother Cancer Melanoma Congestive heart failure (CHF) Father Cancer Melanoma Family/Other Cancer Uncle, Prostate Brother Diabetes Other Borderline personality disorder Social History Smoking and tobacco/nicotine status: current every day tobacco/nicotine user cigarettes Packs smoked per day: 0.5 [ Other cigarette details: been smoking 2 months] Second hand smoke exposure: No Alcohol intake: current Alcohol intake frequency: holidays/special occasions only Substance/Drug Use: never Household members: spouse Marital status: Current gender identity: Female Physical Exam 2 Const: COMMON NORMALS: patient oriented x3 NUTRITIONAL APPEARANCE: obese HENMT: COMMON NORMALS: normocephalic and atraumatic HEAD & SCALP: n ormocephalic and atraumatic Neck/C-Spine: COMMON NORMALS: full ROM and supple Chest: COMMONS NORMALS: normal inspection of the chest Resp: COMMON NORMALS: normal respiratory effort Cardio: COMMON NORMALS: regular rate, regular rhythm and No murmurs present (Cardio) RATE: regular rate RHYTHM: regular rhythm GI: COMMON NORMALS: Soft to palpation, non-tender and no masses PALPATION: Yes Soft to palpation OTHER: Slight dehiscence of wound no severe erythema or drainage at this time Extremity: COMMON NORMALS: normal to inspection and full ROM Neuro: COMMON NORMALS: patient oriented x3, moves all extremities and no focal motor deficits Psych: COMMON NORMALS: mental status grossly normal, Normal thought process present and cooperative THOUGHT PROCESS: Normal thought process present Skin: COMMON NORMALS: no rashes or lesions noted and no wounds GENERAL SKIN EXAM: no rashes or lesions noted Course 2 Vital Signs: Vital signs: Vital Signs Temperature 98.2 F 12/04/23 11:33 Pulse Rate 86 12/04/23 16:22 Respiratory Rate 18 12/04/23 16:22 Blood Pressure 135/81 12/04/23 16:22 Pulse Oximetry 93 12/04/23 16:22 Oxygen Delivery Me thod Room Air 12/04/23 15:38 MDM - Wound/Laceration Medical Decision Making Patient presents here with some obvious incision found to have a large hematoma on the CT scan she had no purulent drainage no fever no white count no signs of abscess I did speak to surgery at [place] they are going to set her up appointment for I did inform patient of this she is to return if worsening follow-up with [facility] scheduled Medical Records I reviewed the patient's medical records. Lab Data I reviewed the patient's lab results. 12/04/23 13:00 12/04/23 13:00 Radiology Impressions Abdomen/Pelvis CT 12/04/23 11:40 IMPRESSION: 1. Round, hyperattenuating collection in the midline infraumbilical ventral abdominal wall measuring approximately 7.4 x 12.5 x 11.3 cm(AP x CC x TV). Suspicious for hematoma/abscess, given history. Recommend correlation. 2. Mild inflammatory change extends deep into the properitoneal fat in the level of the umbilicus. COMMENTS: Consistent with the [employer]'s Incidental Findings Committee white paper (J Am Javier Radiol 2018): Any incidental renal lesion less than 1 cm or classified as too small to characterize, or any incidental cystic renal lesion characterized as simple-appearing, is likely benign. No follow-up imaging is recommended for these lesions per consensus recommendations based on imaging criteria. Laboratory Results WBC 7.50 10^3/uL (3.29-11.43) 12/04/23 13:00 RBC 3.24 10^6/uL (3.85-5.65) L 12/04/23 13:00 Hgb 9.40 g/dL (11.27-16.99) L 12/04/23 13:00 Hct 31.5 % (36-47) L 12/04/23 13:00 MCV 97.2 fl (85-98) 12/04/23 13:00 MCH 29.0 pg (27-33) 12/04/23 13:00 MCHC 29.8 g/dL (30-55) L 12/04/23 13:00 RDW 13.9 % (12.1-15.1) 12/04/23 13:00 Plt Count 316 10^3/cmm (157-399) 12/04/23 13:00 MPV 9.6 fL (7.4-10.4) 12/04/23 13:00 Neut % (Auto) 49.4 % 12/04/23 13:00 Lymph % (Auto) 32.3 % 12/04/23 13:00 [place] % (Auto) 11.1 % 12/04/23 13:00 Eos % (Auto) 5.9 % 12/04/23 13:00 Baso % (Auto) 0.9 % 12/04/23 13:00 Neut # (Auto) 3.71 10^3/uL (1.8-7.7) 12/04/23 13:00 Lymph # (Auto) 2.4 10^3/uL (0.8-4.8) 12/04/23 13:00 [place] # (Auto) 0.8 10^3/uL (0.2-0.9) 12/04/23 13:00 Eos # (Auto) 0.4 10^3/uL (0.0-0.8) 12/04/23 13:00 Baso # (Auto) 0.1 10^3/uL (0.0-0.1) 12/04/23 13:00 Nucleated RBC % (auto) 0 % 12/04/23 13:00 Nucleated RBCs # 0.0 /100WBC 12/04/23 13:00 Sodium 139 mmol/L (136-145) 12/04/23 13:00 Potassium 4.2 mmol/L (3.5-5.1) 12/04/23 13:00 Chloride 103 mmol/L (98-107) 12/04/23 13:00 Carbon Dioxide 28 mmol/L (22-29) 12/04/23 13:00 Anion Gap 12.2 (5-19) 12/04/23 13:00 BUN 14 mg/dL (8-23) 12/04/23 13:00 Creatinine 0.8 mg/dL (0.5-0.9) 12/04/23 13:00 GFR Calculation 73.2 mL/min (90-130) L 12/04/23 13:00 Glucose 104 mg/dL (65-115) 12/04/23 13:00 Calculated Osmolality 289 mOsm/kg (285-295) 12/04/23 13:00 Calcium 8.9 mg/dL (8.5-10.5) 12/04/23 13:00 Total Bilirubin 0.2 mg/dL (0.15-1.2) 12/04/23 13:00 AST 12 U/L (0-32) 12/04/23 13:00 ALT 7 U/L (0-33) 12/04/23 13:00 Alkaline Phosphatase 78 U/L (35-105) 12/04/23 13:00 Total Protein 6.8 g/dL (6.6-8.7) 12/04/23 13:00 Albumin 3.5 g/dL (3.5-5.2) 12/04/23 13:00 Globulin 3.3 g/dL (1.3-4.6) 12/04/23 13:00 All radiology interpretation(s) finalized by discharge Discharge Plan Discharge Patient Disposition: Home Clinical Impression: Wound dehiscence, surgical, Abdominal wall hematoma Condition: Stable Prescriptions: No Action zonisamide 100 mg capsule 300 mg PO BEDTIME fluoxetine [Prozac] 20 mg capsule 20 mg PO DAILY Qty: 30 2RF prazosin 2 mg capsule 2 mg PO BEDTIME Qty: 30 2RF clonazepam 1 mg tablet,disintegrating 1 mg PO DAILY PRN (Reason: anxiety) Qty: 30 0RF oxycodone 5 mg tablet 5 mg PO Q6H PRN (Reason: Pain) duloxetine 60 mg capsule,delayed release(DR/EC) 60 mg PO BID ondansetron 4 mg tablet,disintegrating 4 mg PO Q6H PRN (Reason: nausea and vomiting) Qty: 14 0RF levothyroxine 25 mcg tablet 25 mcg PO QAM pantoprazole 40 mg tablet,delayed release (DR/EC) 40 mg PO DAILY fluticasone propionate 50 mcg/actuation spray,suspension 2 spray INTRANASAL DAILY PRN (Reason: Allergy Symptoms) ketoconazole 2 % cream 1 applic topical BID PRN (Reason: flares) Rx Instructions: Apply to affected areas in skin folds x3 weeks then prn for flares diclofenac sodium [Voltaren Arthritis Pain] 1 % gel 4 g topical QID PRN (Reason: Pain) Rx Instructions: apply to single knee, ankle, foot; for foot includes sole/toes/top of foot Discharge Orders: Discharge ED (Routine); Ordered 12/04/23 Ordered By: Yesenia Joseph Referrals: Audra Rodriguez MD [Primary Care Provider] - Discharge Diet: Advance as tolerated Discharge Activity: Resume usual activity Patient Instructions: Wound Dehiscence (ED), Hematoma (ED) Coding Level of Care Code ED [employer] Veget[employer]er for Jasmine Pollock
[2023-12-04 13:09] LABS: Basophils # 0.1 10^3/uL (0.0-0.1); Basophils % 0.9 %; Eosinophils # 0.4 10^3/uL (0.0-0.8); Eosinophils % 5.9 %; Hematocrit 31.5 % (36-47); Lymphocytes # 2.4 10^3/uL (0.8-4.8); Lymphocytes % 32.3 %; Mean Corpuscular HGB Conc 29.8 g/dL (30-55); Mean Corpuscular Volume 97.2 fl (85-98); Mean Platelet Volume 9.6 fL (7.4-10.4); Monocytes # 0.8 10^3/uL (0.2-0.9); Monocytes % 11.1 %; Neutrophils # 3.71 10^3/uL (1.8-7.7); Neutrophils % 49.4 %; Nucleated Red Blood Cells % 0 %; Platelet Count 316 10^3/cmm (157-399); Red Blood Count 3.24 10^6/uL (3.85-5.65); Red Cell Distribution Width 13.9 % (12.1-15.1)
[2023-12-04 13:29] LABS: Alanine Aminotransferase 7 U/L (0-33); Albumin Level 3.5 g/dL (3.5-5.2); Alkaline Phosphatase 78 U/L (35-105); Anion Gap 12.2 (5-19); Aspartate Amino Transferase 12 U/L (0-32); Blood Urea Nitrogen 14 mg/dL (8-23); Calcium 8.9 mg/dL (8.5-10.5); Carbon Dioxide 28 mmol/L (22-29); Chloride 103 mmol/L (98-107); Creatinine Clr Calc Pharmacy 110.2422; Globulin 3.3 g/dL (1.3-4.6); Glomerular Filtration Rate 73.2 mL/min (90-130); Glucose 104 mg/dL (65-115); Osmolality Calculated 289 mOsm/kg (285-295); Potassium 4.2 mmol/L (3.5-5.1); Sodium 139 mmol/L (136-145); Total Bilirubin 0.2 mg/dL (0.15-1.2); Total Protein 6.8 g/dL (6.6-8.7)
[2023-12-04 15:38] VITALS: BP 144/90; PULSE 87; RESP 18; O2SAT 97
[2023-12-04 16:22] VITALS: BP 135/81; PULSE 86; RESP 18; O2SAT 93
--- NOTE | 2023-12-04 16:24 | PC.NURSE ---
wound covered with abd pad and secured.
== END 2023-12-04 16:43 | disposition home or self-care (01) ==
PROVIDERS: Emergency Provider Emergency Medicine; PCP Family Medicine
DX: T81.31XA Disruption of external operation (surgical) wound, not elsewhere classified, initial encounter (principal); F17.210 Nicotine dependence, cigarettes, uncomplicated; J44.9 Chronic obstructive pulmonary disease, unspecified; I10 Essential (primary) hypertension
CPT/HCPCS: 74176; 80053; 85025; 99284

== ENCOUNTER → 2023-12-14 13:07 | Outpatient (BNVA) | payer MEDICARE, MEDICAID, SELFPAY ==
[2023-09-26 14:01] VITALS: BP 106/60; BMI 63.9
== END ==
PROVIDERS: PCP Family Medicine; Visit Provider Thoracic Surgery (Cardiothoracic Vascular Surgery)
DX: T81.31XD Disruption of external operation (surgical) wound, not elsewhere classified, subsequent encounter (principal); Y83.8 Other surgical procedures as the cause of abnormal reaction of the patient, or of later complication, without mention of misadventure at the time of the procedure
CPT/HCPCS: 97597; 99213; A6237; A6250

== ENCOUNTER → 2023-12-18 14:28 | Outpatient (BNVA) | payer MEDICARE, MEDICAID, SELFPAY ==
[2023-09-26 14:01] VITALS: BP 106/60; BMI 63.9
== END ==
PROVIDERS: PCP Family Medicine; Visit Provider Thoracic Surgery (Cardiothoracic Vascular Surgery)
DX: T81.31XD Disruption of external operation (surgical) wound, not elsewhere classified, subsequent encounter (principal); Y83.8 Other surgical procedures as the cause of abnormal reaction of the patient, or of later complication, without mention of misadventure at the time of the procedure
CPT/HCPCS: 97605; A6237; A6250

== ENCOUNTER → 2023-12-21 13:39 | Outpatient (BNVA) | payer MEDICARE, MEDICAID, SELFPAY ==
[2023-09-26 14:01] VITALS: BP 106/60; BMI 63.9
== END ==
PROVIDERS: PCP Family Medicine; Visit Provider Thoracic Surgery (Cardiothoracic Vascular Surgery)
DX: T81.31XD Disruption of external operation (surgical) wound, not elsewhere classified, subsequent encounter (principal); Y83.8 Other surgical procedures as the cause of abnormal reaction of the patient, or of later complication, without mention of misadventure at the time of the procedure
CPT/HCPCS: 97597; 97605

== ENCOUNTER → 2023-12-25 08:00 | Outpatient (BNVA) | payer MEDICARE, MEDICAID, SELFPAY ==
[2023-09-26 14:01] VITALS: BP 106/60; BMI 63.9
== END ==
PROVIDERS: PCP Family Medicine; Visit Provider Thoracic Surgery (Cardiothoracic Vascular Surgery)
DX: T81.31XD Disruption of external operation (surgical) wound, not elsewhere classified, subsequent encounter (principal); Y83.8 Other surgical procedures as the cause of abnormal reaction of the patient, or of later complication, without mention of misadventure at the time of the procedure; L98.492 Non-pressure chronic ulcer of skin of other sites with fat layer exposed
CPT/HCPCS: 97605; A6237; A6250

== ENCOUNTER → 2023-12-28 15:00 | Outpatient (BNVA) | payer MEDICARE, MEDICAID, SELFPAY ==
[2023-09-26 14:01] VITALS: BP 106/60; BMI 63.9
== END ==
PROVIDERS: PCP Family Medicine; Visit Provider Thoracic Surgery (Cardiothoracic Vascular Surgery)
DX: T81.31XD Disruption of external operation (surgical) wound, not elsewhere classified, subsequent encounter (principal); Y83.8 Other surgical procedures as the cause of abnormal reaction of the patient, or of later complication, without mention of misadventure at the time of the procedure
CPT/HCPCS: 97597; 97605; A6237; A6250

== ENCOUNTER → 2024-01-01 15:45 | Outpatient (BNVA) | payer MEDICARE, MEDICAID, SELFPAY ==
[2023-09-26 14:01] VITALS: BP 106/60; BMI 63.9
== END ==
PROVIDERS: PCP Family Medicine; Visit Provider Thoracic Surgery (Cardiothoracic Vascular Surgery)
DX: T81.31XD Disruption of external operation (surgical) wound, not elsewhere classified, subsequent encounter (principal); Y83.8 Other surgical procedures as the cause of abnormal reaction of the patient, or of later complication, without mention of misadventure at the time of the procedure; L98.492 Non-pressure chronic ulcer of skin of other sites with fat layer exposed
CPT/HCPCS: 97605; A6237; A6250

== ENCOUNTER → 2024-01-04 08:00 | Outpatient (BNVA) | payer MEDICARE, MEDICAID, SELFPAY ==
[2023-09-26 14:01] VITALS: BP 106/60; BMI 63.9
== END ==
PROVIDERS: PCP Family Medicine; Visit Provider Thoracic Surgery (Cardiothoracic Vascular Surgery)
DX: T81.31XD Disruption of external operation (surgical) wound, not elsewhere classified, subsequent encounter (principal); Y83.8 Other surgical procedures as the cause of abnormal reaction of the patient, or of later complication, without mention of misadventure at the time of the procedure
CPT/HCPCS: 87070; 87077; 87176; 87186; 87205; 97597; A6237; A6250

== ENCOUNTER → 2024-01-08 10:45 | Outpatient (BNVA) | payer MEDICARE, MEDICAID, SELFPAY ==
[2023-09-26 14:01] VITALS: BP 106/60; BMI 63.9
== END ==
PROVIDERS: PCP Family Medicine; Visit Provider Thoracic Surgery (Cardiothoracic Vascular Surgery)
DX: T81.31XD Disruption of external operation (surgical) wound, not elsewhere classified, subsequent encounter (principal); Y83.8 Other surgical procedures as the cause of abnormal reaction of the patient, or of later complication, without mention of misadventure at the time of the procedure
CPT/HCPCS: 97605; A6237; A6250

== ENCOUNTER 2024-01-11 08:52 | Outpatient (CLI) | payer MEDICARE, SELFPAY ==
[2023-09-26 14:01] VITALS: BP 106/60; BMI 63.9
== END 2024-01-11 08:53 | disposition home or self-care (01) ==
PROVIDERS: PCP Family Medicine; Visit Provider Family Medicine
DX: R10.13 Epigastric pain (principal); I96 Gangrene, not elsewhere classified; T81.31XD Disruption of external operation (surgical) wound, not elsewhere classified, subsequent encounter; Y83.8 Other surgical procedures as the cause of abnormal reaction of the patient, or of later complication, without mention of misadventure at the time of the procedure
CPT/HCPCS: 87338; 97597; 97605; A6237; A6250

== ENCOUNTER → 2024-01-15 11:15 | Outpatient (BNVA) | payer MEDICARE, SELFPAY ==
[2023-09-26 14:01] VITALS: BP 106/60; BMI 63.9
== END ==
PROVIDERS: PCP Family Medicine; Visit Provider Thoracic Surgery (Cardiothoracic Vascular Surgery)
DX: I96 Gangrene, not elsewhere classified (principal); T81.31XD Disruption of external operation (surgical) wound, not elsewhere classified, subsequent encounter; Y83.8 Other surgical procedures as the cause of abnormal reaction of the patient, or of later complication, without mention of misadventure at the time of the procedure
CPT/HCPCS: 97605

== ENCOUNTER → 2024-01-18 08:48 | Outpatient (BNVA) | payer MEDICARE, SELFPAY ==
[2023-09-26 14:01] VITALS: BP 106/60; BMI 63.9
== END ==
PROVIDERS: PCP Family Medicine; Visit Provider Thoracic Surgery (Cardiothoracic Vascular Surgery)
DX: T81.31XD Disruption of external operation (surgical) wound, not elsewhere classified, subsequent encounter (principal); Y83.8 Other surgical procedures as the cause of abnormal reaction of the patient, or of later complication, without mention of misadventure at the time of the procedure
CPT/HCPCS: 97597; A6237; A6250

== ENCOUNTER 2024-01-22 14:10 | Emergency (ER) | payer MEDICARE, MEDICAID, SELFPAY ==
[2023-09-26 14:01] VITALS: BP 106/60; BMI 63.9
[2024-01-22 14:27] VITALS: BP 150/98; PULSE 96; RESP 30; TEMP 37.5; O2SAT 87; BMI 62.1
[2024-01-22 15:01] LABS: Basophils # 0.1 10^3/uL (0.0-0.1); Basophils % 1.5 %; Eosinophils # 0.1 10^3/uL (0.0-0.8); Eosinophils % 2.6 %; Hematocrit 39.1 % (36-47); Lymphocytes # 1.5 10^3/uL (0.8-4.8); Lymphocytes % 32.3 %; Mean Corpuscular HGB Conc 29.7 g/dL (30-55); Mean Corpuscular Hemoglobin 27.8 pg (27-33); Mean Corpuscular Volume 93.5 fl (85-98); Mean Platelet Volume 9.7 fL (7.4-10.4); Monocytes # 0.8 10^3/uL (0.2-0.9); Monocytes % 16.9 %; Neutrophils # 2.16 10^3/uL (1.8-7.7); Neutrophils % 46.1 %; Nucleated Red Blood Cells % 0 %; Platelet Count 255 10^3/cmm (157-399); Red Blood Count 4.18 10^6/uL (3.85-5.65); White Blood Count 4.68 10^3/uL (3.29-11.43)
[2024-01-22 15:20] LABS: Alanine Aminotransferase 10 U/L (0-33); Albumin Level 3.6 g/dL (3.5-5.2); Alkaline Phosphatase 90 U/L (35-105); Aspartate Amino Transferase 14 U/L (0-32); Blood Urea Nitrogen 12 mg/dL (8-23); Calcium 8.7 mg/dL (8.5-10.5); Carbon Dioxide 28 mmol/L (22-29); Chloride 98 mmol/L (98-107); Creatinine Clr Calc Pharmacy 96.2792; Globulin 3.7 g/dL (1.3-4.6); Glomerular Filtration Rate 63.9 mL/min (90-130); Glucose 105 mg/dL (65-115); Lipase 22 U/L (13-60); Osmolality Calculated 276 mOsm/kg (285-295); Sodium 133 mmol/L (136-145); Total Bilirubin 0.2 mg/dL (0.15-1.2); Total Protein 7.3 g/dL (6.6-8.7)
--- NOTE | 2024-01-22 15:36 | ED_ITS ---
Documented by User: SIERRA Corona 01/22/24 16:36 HPI - Abdominal Pain 2 General: Chief Complaint: Abdominal Pain Stated Complaint: abd extended, pain Time Seen by Provider: 01/22/24 15:23 Source: patient Mode of arrival: wheelchair Limitations: no limitations History of Present Illness: Patient is a 58-year-old female presents to ED today after she was instructed to come to the emergency department by wound care for complaints of abdominal distention. I personally saw patient back in October of this year for an incarcerated hernia. She is subsequently transferred where she underwent surgical repair. She was seen in our emergency department approximately a month later for wound dehiscence/hematoma formation. She states following this visit she saw her surgeon at [place] and had another surgery performed for the hematoma that had gotten infected . She has subsequently been following up with wound care here. She is reporting belching after eating/drinking but states this has been present for a year. No vomiting. She is still passing gas/stool. No fevers. Does state she has had a cough and feels short of breath over the weekend. Wears BiPAP at night. Location: Diffuse Quality: other (bloating/distention) Radiation: none Migration to: no migration Exacerbating factors: eating Relieving factors: nothing Associated Symptoms: Reports belching and bloating; Denies change in bowel habits, chills, dysuria, fever(s), hematochezia, melena, nausea, syncope and vomiting Related Data Home Medications Medication Instructions Recorded Confirmed zonisamide 100 mg capsule 300 mg PO BEDTIME 04/16/19 01/19/24 diclofenac sodium 1 % topical gel 4 g topical QID PRN Pain 09/21/22 01/19/24 (Voltaren Arthritis Pain) fluticasone propionate 50 2 spray intranasal DAILY PRN 09/21/22 01/19/24 mcg/actuation nasal Allergy Symptoms spray,suspension ketoconazole 2 % topical cream 1 applic topical BID PRN flares 09/21/22 01/19/24 levothyroxine 25 mcg tablet 25 mcg PO QAM 09/21/22 01/19/24 pantoprazole 40 mg tablet,delayed 40 mg PO DAILY 09/21/22 01/19/24 release Previous Rx's Medication Instructions Recorded ondansetron 4 mg disintegrating 4 mg PO Q6H PRN nausea and 05/16/22 tablet vomiting #14 tabs levofloxacin 500 mg tablet 500 mg PO DAILY #7 tabs 01/04/24 clonazepam 1 mg disintegrating 1 mg PO DAILY PRN anxiety #30 tabs 01/19/24 tablet duloxetine 60 mg capsule,delayed 60 mg PO BID #60 caps 01/19/24 release fluoxetine 20 mg capsule (Prozac) 20 mg PO DAILY #30 caps 01/19/24 prazosin 2 mg capsule 2 mg PO BEDTIME #30 caps 01/19/24 Allergies Allergy/AdvReac Type Severity Reaction Status Date / Time Fentanyl Allergy Severe ALGY-Anaphy Uncoded 01/22/24 14:37 laxis Review of Systems 2 Const: Denies: fever(s), chills, body aches, fatigue or malaise Card: Denies: chest pain, swelling of feet/ankles, lightheadedness, syncope or pre-syncope Resp: Reports: dyspnea, non-productive cough and chest congestion; Denies: wheezing or hemoptysis GI: Reports: bloating and belching; Denies: nausea, vomiting, change in bowel habits, hematochezia or melena : Denies: flank pain or dysuria Musc: Denies: extremity swelling Neuro: Denies: headache(s) PFSH ED 2 PFSH: Medical History Nicotine use disorder Abnormal mammogram of both breasts Psychiatric care Generalized anxiety disorder with panic attacks Anxiety Actinic keratosis Borderline personality disorder COPD (chronic obstructive pulmonary disease) Depression Fibromyalgia Hyperglycemia Hypertension Obesity Sleep apnea PTSD (post-traumatic stress disorder) Diabetes Surgical History History of hysterectomy 6 years ago. Hx of polyps History of colonoscopy History of 1993 and 1989 Hx of external ear surgery Family History Father Alzheimer disease Sister Asthma Family/Other Cancer Aunt, Colon Mother Cancer Melanoma Congestive heart failure (CHF) Father Cancer Melanoma Family/Other Cancer Uncle, Prostate Brother Diabetes Other Borderline personality disorder Social History Smoking and tobacco/nicotine status: current every day tobacco/nicotine user cigarettes Packs smoked per day: 0.5 [ Other cigarette details: been smoking 2 months] Second hand smoke exposure: No Alcohol intake: current Alcohol intake frequency: holidays/special occasions only Substance/Drug Use: never Household members: spouse Marital status: Current gender identity: Female Physical Exam 2 Const: COMMON NORMALS: no acute distress, patient oriented x3, no limitations and alert GENERAL APPEARANCE: cooperative NUTRITIONAL APPEARANCE: obese morbidly obese (super morbid obesity with BMI of 62.2) O RIENTATION/CONSCIOUSNESS: Yes awake, Yes oriented to person, Yes oriented to place and Yes oriented to time HENMT: COMMON NORMALS: normocephalic and atraumatic HEAD & SCALP: normal to inspection, normocephalic and atraumatic Chest: COMMONS NORMALS: normal inspection of the chest and normal palpation of entire chest wall Resp: COMMON NORMALS: normal respiratory effort and clear to auscultation bilaterally AUSCULTATION: clear to auscultation bilaterally Cardio: COMMON NORMALS: regular rate and regular rhythm RATE: regular rate RHYTHM: regular rhythm GI: COMMON NORMALS: Soft to palpation and no masses INSPECTION: Yes normal to inspection and Yes other (wound vac present near umbilicus ) AUSCULTATION: Yes normoactive bowel sounds PALPATION: Yes Soft to palpation OTHER: exam hindered due to obesity status : COMMON NORMALS: Yes no CVA tenderness BLADDER/KIDNEY EXAM: Yes no CVA tenderness Back/Pelvis: COMMON NORMALS: no CVA tenderness Extremity: COMMON NORMALS: no clubbing, cyanosis or edema, no calf tenderness and no pedal edema GENERAL: Yes normal exam except as noted Neuro: COMMON NORMALS: patient oriented x3, moves all extremities, no focal motor deficits and no sensory deficits noted SENSORIUM/ORIENTATION: Yes alert, Yes oriented to person, Yes oriented to place and Yes oriented to time Skin: COMMON NORMALS: no rashes or lesions noted GENERAL SKIN EXAM: no rashes or lesions noted Course 2 Vital Signs: Vital signs: Vital Signs Temperature 99.5 F 01/22/24 14:27 Pulse Rate 104 H 01/22/24 18:13 Respiratory Rate 18 01/22/24 18:13 Blood Pressure 127/106 01/22/24 18:13 Pulse Oximetry 98 01/22/24 18:13 Oxygen Delivery Me thod Room Air 01/22/24 17:49 Oxygen Flow Rate 2 01/22/24 15:42 MDM - Abdominal Pain Lab Data 01/22/24 14:48 01/22/24 14:48 Labs/Radiology: Radiology Impressions Abdomen/Pelvis CT 01/22/24 16:07 IMPRESSION: 1. Postsurgical changes midline ventral abdominal wall. Interval resolution of large hematoma or abscess within the midline infraumbilical ventral abdominal wall from prior exam, with mild residual soft tissue thickening in this region along with a small residual hypodense focus of fluid density of 34 x 15 mm appearing to extend to the skin surface. This could indicate residual changes associated with hematoma or inflammation. Overall improved appearance of the ventral abdominal wall from prior exam though. 2. Generalized increased bowel gas that appears more prominent within large bowel, similar to prior exam. 3. Other nonacute findings as noted with prior exam. Chest X-Ray 01/22/24 16:07 IMPRESSION: Mild left basilar atelectasis. No acute findings otherwise. Laboratory Results WBC 4.68 10^3/uL (3.29-11.43) 01/22/24 14:48 RBC 4.18 10^6/uL (3.85-5.65) 01/22/24 14:48 Hgb 11.60 g/dL (11.27-16.99) 01/22/24 14:48 Hct 39.1 % (36-47) 01/22/24 14:48 MCV 93.5 fl (85-98) 01/22/24 14:48 MCH 27.8 pg (27-33) 01/22/24 14:48 MCHC 29.7 g/dL (30-55) L 01/22/24 14:48 RDW 15.0 % (12.1-15.1) 01/22/24 14:48 Plt Count 255 10^3/cmm (157-399) 01/22/24 14:48 MPV 9.7 fL (7.4-10.4) 01/22/24 14:48 Neut % (Auto) 46.1 % 01/22/24 14:48 Lymph % (Auto) 32.3 % 01/22/24 14:48 [place] % (Auto) 16.9 % 01/22/24 14:48 Eos % (Auto) 2.6 % 01/22/24 14:48 Baso % (Auto) 1.5 % 01/22/24 14:48 Neut # (Auto) 2.16 10^3/uL (1.8-7.7) 01/22/24 14:48 Lymph # (Auto) 1.5 10^3/uL (0.8-4.8) 01/22/24 14:48 [place] # (Auto) 0.8 10^3/uL (0.2-0.9) 01/22/24 14:48 Eos # (Auto) 0.1 10^3/uL (0.0-0.8) 01/22/24 14:48 Baso # (Auto) 0.1 10^3/uL (0.0-0.1) 01/22/24 14:48 Nucleated RBC % (auto) 0 % 01/22/24 14:48 Nucleated RBCs # 0.0 /100WBC 01/22/24 14:48 Sodium 133 mmol/L (136-145) L 01/22/24 14:48 Potassium 4.0 mmol/L (3.5-5.1) 01/22/24 14:48 Chloride 98 mmol/L (98-107) 01/22/24 14:48 Carbon Dioxide 28 mmol/L (22-29) 01/22/24 14:48 Anion Gap 11.0 (5-19) 01/22/24 14:48 BUN 12 mg/dL (8-23) 01/22/24 14:48 Creatinine 0.9 mg/dL (0.5-0.9) 01/22/24 14:48 GFR Calculation 63.9 mL/min (90-130) L 01/22/24 14:48 Glucose 105 mg/dL (65-115) 01/22/24 14:48 Calculated Osmolality 276 mOsm/kg (285-295) L 01/22/24 14:48 Calcium 8.7 mg/dL (8.5-10.5) 01/22/24 14:48 Total Bilirubin 0.2 mg/dL (0.15-1.2) 01/22/24 14:48 AST 14 U/L (0-32) 01/22/24 14:48 ALT 10 U/L (0-33) 01/22/24 14:48 Alkaline Phosphatase 90 U/L (35-105) 01/22/24 14:48 Total Protein 7.3 g/dL (6.6-8.7) 01/22/24 14:48 Albumin 3.6 g/dL (3.5-5.2) 01/22/24 14:48 Globulin 3.7 g/dL (1.3-4.6) 01/22/24 14:48 Lipase 22 U/L (13-60) 01/22/24 14:48 Urine Color Yellow (Yellow) 01/22/24 15:35 Urine Appearance Clear (CLEAR) 01/22/24 15:35 Urine pH 7.5 (5-7) 01/22/24 15:35 Ur Specific [place] 1.014 (1.005-1.030) 01/22/24 15:35 Urine Protein Negative (Negative) 01/22/24 15:35 Urine Glucose (UA) Negative (Normal) 01/22/24 15:35 Urine Ketones Negative (Negative) 01/22/24 15:35 Urine Blood 1+ (Negative) A 01/22/24 15:35 Urine Nitrate Negative (Negative) 01/22/24 15:35 Urine Bilirubin Negative (Negative) 01/22/24 15:35 Urine Urobilinogen 0.2 mg/dL (Negative) 01/22/24 15:35 Ur Leukocyte Esterase Negative (Negative) 01/22/24 15:35 Urine RBC 0-4 /hpf (0-2) H 01/22/24 15:35 Urine WBC None /hpf (0-5) 01/22/24 15:35 Ur Squamous Epith Cells 0-4 /hpf (0-5) H 01/22/24 15:35 Calcium Oxalate Crystal 5-10 /hpf H 01/22/24 15:35 Amorphous Sediment Not Reportable 01/22/24 15:35 Urine Bacteria Trace /hpf (NONE) 01/22/24 15:35 Discharge Plan Discharge Patient Disposition: Home Clinical Impression: Belching Condition: Stable Prescriptions: No Action zonisamide 100 mg capsule 300 mg PO BEDTIME fluoxetine [Prozac] 20 mg capsule 20 mg PO DAILY Qty: 30 2RF prazosin 2 mg capsule 2 mg PO BEDTIME Qty: 30 2RF duloxetine 60 mg capsule,delayed release(DR/EC) 60 mg PO BID Qty: 60 2RF clonazepam 1 mg tablet,disintegrating 1 mg PO DAILY PRN (Reason: anxiety) Qty: 30 0RF levofloxacin 500 mg tablet 500 mg PO DAILY Qty: 7 0RF ondansetron 4 mg tablet,disintegrating 4 mg PO Q6H PRN (Reason: nausea and vomiting) Qty: 14 0RF levothyroxine 25 mcg tablet 25 mcg PO QAM pantoprazole 40 mg tablet,delayed release (DR/EC) 40 mg PO DAILY fluticasone propionate 50 mcg/actuation spray,suspension 2 spray INTRANASAL DAILY PRN (Reason: Allergy Symptoms) ketoconazole 2 % cream 1 applic topical BID PRN (Reason: flares) Rx Instructions: Apply to affected areas in skin folds x3 weeks then prn for flares diclofenac sodium [Voltaren Arthritis Pain] 1 % gel 4 g topical QID PRN (Reason: Pain) Rx Instructions: apply to single knee, ankle, foot; for foot includes sole/toes/top of foot Discharge Orders: Discharge ED (Routine); Ordered 01/22/24 Ordered By: Vernon Morrow Referrals: Audra Rodriguez MD [Primary Care Provider] - Patient Instructions: Opioid Safety, Pain Management Activity Restrictions/Additional Instructions: Follow-up with your primary care provider as discussed. Continue using BiPAP at night. Continue taking home medications. Return if you develop any shortness of breath, worsening of abdominal pain, or other concerning symptoms that you may have. Sign Out Sign Out Data: Patient Sign Out occurred on 01/22/24 at 17:07. Patient's care was discussed, and care was transferred from SIERAR Corona to SIERRA Schuler. Coding Level of Care Code ED Software Maintenance Engineer for [employer] Documented by User: SIERRA Schuler 01/22/24 19:31 HPI - Abdominal Pain 2 General: Chief Complaint: Abdominal Pain Stated Complaint: abd extended, pain Time Seen by Provider: 01/22/24 15:23 Related Data Home Medications Medication Instructions Recorded Confirmed zonisamide 100 mg capsule 300 mg PO BEDTIME 04/16/19 01/19/24 diclofenac sodium 1 % topical gel 4 g topical QID PRN Pain 09/21/22 01/19/24 (Voltaren Arthritis Pain) fluticasone propionate 50 2 spray intranasal DAILY PRN 09/21/22 01/19/24 mcg/actuation nasal Allergy Symptoms spray,suspension ketoconazole 2 % topical cream 1 applic topical BID PRN flares 09/21/22 01/19/24 levothyroxine 25 mcg tablet 25 mcg PO QAM 09/21/22 01/19/24 pantoprazole 40 mg tablet,delayed 40 mg PO DAILY 09/21/22 01/19/24 release Previous Rx's Medication Instructions Recorded ondansetron 4 mg disintegrating 4 mg PO Q6H PRN nausea and 05/16/22 tablet vomiting #14 tabs levofloxacin 500 mg tablet 500 mg PO DAILY #7 tabs 01/04/24 clonazepam 1 mg disintegrating 1 mg PO DAILY PRN anxiety #30 tabs 01/19/24 tablet duloxetine 60 mg capsule,delayed 60 mg PO BID #60 caps 01/19/24 release fluoxetine 20 mg capsule (Prozac) 20 mg PO DAILY #30 caps 01/19/24 prazosin 2 mg capsule 2 mg PO BEDTIME #30 caps 01/19/24 Allergies Allergy/AdvReac Type Severity Reaction Status Date / Time Fentanyl Allergy Severe ALGY-Anaphy Uncoded 01/22/24 14:37 laxis PFSH ED 2 PFSH: Medical History Nicotine use disorder Abnormal mammogram of both breasts Psychiatric care Generalized anxiety disorder with panic attacks Anxiety Actinic keratosis Borderline personality disorder COPD (chronic obstructive pulmonary disease) Depression Fibromyalgia Hyperglycemia Hypertension Obesity Sleep apnea PTSD (post-traumatic stress disorder) Diabetes Surgical History History of hysterectomy 6 years ago. Hx of polyps History of colonoscopy History of 1993 and 1989 Hx of external ear surgery Family History Father Alzheimer disease Sister Asthma Family/Other Cancer Aunt, Colon Mother Cancer Melanoma Congestive heart failure (CHF) Father Cancer Melanoma Family/Other Cancer Uncle, Prostate Brother Diabetes Other Borderline personality disorder Social History (Reviewed 01/22/24 @ 16:30 by RADHA Corona Smoking and tobacco/nicotine status: current every day tobacco/nicotine user cigarettes Packs smoked per day: 0.5 [ Other cigarette details: been smoking 2 months] Second hand smoke exposure: No Alcohol intake: current Alcohol intake frequency: holidays/special occasions only Substance/Drug Use: never Household members: spouse Marital status: Current gender identity: Female Course 2 Vital Signs: Vital signs: Vital Signs Temperature 99.5 F 01/22/24 14:27 Pulse Rate 104 H 01/22/24 18:13 Respiratory Rate 18 01/22/24 18:13 Blood Pressure 127/106 01/22/24 18:13 Pulse Oximetry 98 01/22/24 18:13 Oxygen Delivery Nc thod Room Air 01/22/24 17:49 Oxygen Flow Rate 2 01/22/24 15:42 MDM - Abdominal Pain Medical Decision Making Care of patient transferred to [place] by midlevel provider. Patient sent from wound care due to what they thought was distention of the abdomen, patient has surgical history. Concern for small bowel obstruction, patient had obtained the ability to pass gas and stool. CT here did not demonstrate any signs of an obstruction, did show interval improvement of her previous operation. Her lab work was unremarkable. Initially she did arrive with a low oxygen was placed on 2 L, patient does wear BiPAP at night. She was eventually weaned off of the oxygen, was satting 95 to 98% at time of discharge. Did discuss with her reasons to return, she will continue following up with primary care and wound care. Lab Data 01/22/24 14:48 01/22/24 14:48 Labs/Radiology: Radiology Impressions Abdomen/Pelvis CT 01/22/24 16:07 IMPRESSION: 1. Postsurgical changes midline ventral abdominal wall. Interval resolution of large hematoma or abscess within the midline infraumbilical ventral abdominal wall from prior exam, with mild residual soft tissue thickening in this region along with a small residual hypodense focus of fluid density of 34 x 15 mm appearing to extend to the skin surface. This could indicate residual changes associated with hematoma or inflammation. Overall improved appearance of the ventral abdominal wall from prior exam though. 2. Generalized increased bowel gas that appears more prominent within large bowel, similar to prior exam. 3. Other nonacute findings as noted with prior exam. Chest X-Ray 01/22/24 16:07 IMPRESSION: Mild left basilar atelectasis. No acute findings otherwise. Laboratory Results WBC 4.68 10^3/uL (3.29-11.43) 01/22/24 14:48 RBC 4.18 10^6/uL (3.85-5.65) 01/22/24 14:48 Hgb 11.60 g/dL (11.27-16.99) 01/22/24 14:48 Hct 39.1 % (36-47) 01/22/24 14:48 MCV 93.5 fl (85-98) 01/22/24 14:48 MCH 27.8 pg (27-33) 01/22/24 14:48 MCHC 29.7 g/dL (30-55) L 01/22/24 14:48 RDW 15.0 % (12.1-15.1) 01/22/24 14:48 Plt Count 255 10^3/cmm (157-399) 01/22/24 14:48 MPV 9.7 fL (7.4-10.4) 01/22/24 14:48 Neut % (Auto) 46.1 % 01/22/24 14:48 Lymph % (Auto) 32.3 % 01/22/24 14:48 [place] % (Auto) 16.9 % 01/22/24 14:48 Eos % (Auto) 2.6 % 01/22/24 14:48 Baso % (Auto) 1.5 % 01/22/24 14:48 Neut # (Auto) 2.16 10^3/uL (1.8-7.7) 01/22/24 14:48 Lymph # (Auto) 1.5 10^3/uL (0.8-4.8) 01/22/24 14:48 [place] # (Auto) 0.8 10^3/uL (0.2-0.9) 01/22/24 14:48 Eos # (Auto) 0.1 10^3/uL (0.0-0.8) 01/22/24 14:48 Baso # (Auto) 0.1 10^3/uL (0.0-0.1) 01/22/24 14:48 Nucleated RBC % (auto) 0 % 01/22/24 14:48 Nucleated RBCs # 0.0 /100WBC 01/22/24 14:48 Sodium 133 mmol/L (136-145) L 01/22/24 14:48 Potassium 4.0 mmol/L (3.5-5.1) 01/22/24 14:48 Chloride 98 mmol/L (98-107) 01/22/24 14:48 Carbon Dioxide 28 mmol/L (22-29) 01/22/24 14:48 Anion Gap 11.0 (5-19) 01/22/24 14:48 BUN 12 mg/dL (8-23) 01/22/24 14:48 Creatinine 0.9 mg/dL (0.5-0.9) 01/22/24 14:48 GFR Calculation 63.9 mL/min (90-130) L 01/22/24 14:48 Glucose 105 mg/dL (65-115) 01/22/24 14:48 Calculated Osmolality 276 mOsm/kg (285-295) L 01/22/24 14:48 Calcium 8.7 mg/dL (8.5-10.5) 01/22/24 14:48 Total Bilirubin 0.2 mg/dL (0.15-1.2) 01/22/24 14:48 AST 14 U/L (0-32) 01/22/24 14:48 ALT 10 U/L (0-33) 01/22/24 14:48 Alkaline Phosphatase 90 U/L (35-105) 01/22/24 14:48 Total Protein 7.3 g/dL (6.6-8.7) 01/22/24 14:48 Albumin 3.6 g/dL (3.5-5.2) 01/22/24 14:48 Globulin 3.7 g/dL (1.3-4.6) 01/22/24 14:48 Lipase 22 U/L (13-60) 01/22/24 14:48 Urine Color Yellow (Yellow) 01/22/24 15:35 Urine Appearance Clear (CLEAR) 01/22/24 15:35 Urine pH 7.5 (5-7) 01/22/24 15:35 Ur Specific [place] 1.014 (1.005-1.030) 01/22/24 15:35 Urine Protein Negative (Negative) 01/22/24 15:35 Urine Glucose (UA) Negative (Normal) 01/22/24 15:35 Urine Ketones Negative (Negative) 01/22/24 15:35 Urine Blood 1+ (Negative) A 01/22/24 15:35 Urine Nitrate Negative (Negative) 01/22/24 15:35 Urine Bilirubin Negative (Negative) 01/22/24 15:35 Urine Urobilinogen 0.2 mg/dL (Negative) 01/22/24 15:35 Ur Leukocyte Esterase Negative (Negative) 01/22/24 15:35 Urine RBC 0-4 /hpf (0-2) H 01/22/24 15:35 Urine WBC None /hpf (0-5) 01/22/24 15:35 Ur Squamous Epith Cells 0-4 /hpf (0-5) H 01/22/24 15:35 Calcium Oxalate Crystal 5-10 /hpf H 01/22/24 15:35 Amorphous Sediment Not Reportable 01/22/24 15:35 Urine Bacteria Trace /hpf (NONE) 01/22/24 15:35 All radiology interpretation(s) finalized by discharge Discharge Plan Discharge Patient Disposition: Home Clinical Impression: Belching Condition: Stable Prescriptions: No Action zonisamide 100 mg capsule 300 mg PO BEDTIME fluoxetine [Prozac] 20 mg capsule 20 mg PO DAILY Qty: 30 2RF prazosin 2 mg capsule 2 mg PO BEDTIME Qty: 30 2RF duloxetine 60 mg capsule,delayed release(DR/EC) 60 mg PO BID Qty: 60 2RF clonazepam 1 mg tablet,disintegrating 1 mg PO DAILY PRN (Reason: anxiety) Qty: 30 0RF levofloxacin 500 mg tablet 500 mg PO DAILY Qty: 7 0RF ondansetron 4 mg tablet,disintegrating 4 mg PO Q6H PRN (Reason: nausea and vomiting) Qty: 14 0RF levothyroxine 25 mcg tablet 25 mcg PO QAM pantoprazole 40 mg tablet,delayed release (DR/EC) 40 mg PO DAILY fluticasone propionate 50 mcg/actuation spray,suspension 2 spray INTRANASAL DAILY PRN (Reason: Allergy Symptoms) ketoconazole 2 % cream 1 applic topical BID PRN (Reason: flares) Rx Instructions: Apply to affected areas in skin folds x3 weeks then prn for flares diclofenac sodium [Voltaren Arthritis Pain] 1 % gel 4 g topical QID PRN (Reason: Pain) Rx Instructions: apply to single knee, ankle, foot; for foot includes sole/toes/top of foot Discharge Orders: Discharge ED (Routine); Ordered 01/22/24 Ordered By: Vernon Morrow Referrals: Audra Rodriguez MD [Primary Care Provider] - Patient Instructions: Opioid Safety, Pain Management Activity Restrictions/Additional Instructions: Follow-up with your primary care provider as discussed. Continue using BiPAP at night. Continue taking home medications. Return if you develop any shortness of breath, worsening of abdominal pain, or other concerning symptoms that you may have. Sign Out Sign Out Data: Patient Sign Out occurred on 01/22/24 at 17:07. Patient's care was discussed, and care was transferred from SIERRA Corona to SIERRA Schuler. 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
[2024-01-22 15:42] VITALS: BP 155/88; PULSE 94; RESP 20; O2SAT 98
[2024-01-22 15:52] LABS: Bilirubin Urine Negative (Negative); Blood Urine 1+ (Negative); Glucose Urine UA Negative (Normal); Ketones Urine Negative (Negative); Leukocyte Esterase Urine Negative (Negative); Nitrate Urine Negative (Negative); Protein Urine Negative (Negative); Specific Gravity, Urine 1.014 (1.005-1.030); Urine Appearance Clear (CLEAR); Urine Color Yellow (Yellow); Urobilinogen Urine 0.2 mg/dL (Negative); pH Urine 7.5 (5-7)
--- NOTE | 2024-01-22 16:07 | CTR_ITS ---
PROCEDURE INFORMATION: Exam: CT Abdomen And Pelvis With Contrast Exam date and time: 01/22/2024 4:39 PM Age: 58 years old Clinical indication: Abdominal pain; Additional info: Belching, she was told abdomen was distended? TECHNIQUE: Imaging protocol: Computed tomography of the abdomen and pelvis with contrast. Radiation optimization: All CT scans at this facility use at least one of these dose optimization techniques: automated exposure control; mA and/or kV adjustment per patient size (includes targeted exams where dose is matched to clinical indication); or iterative reconstruction. Contrast material: OMNI 350; Contrast volume: 100 ml; Contrast route: INTRAVENOUS (IV); COMPARISON: CT abdomen pelvis wo con [id number] 12/04/2023 1:57 PM RADIATION DOSE METRICS: Total DLP (mGy-cm): 1292.13 FINDINGS: Lungs: Mild adhesion anterolateral left lung base. No infiltrate or effusion. Diaphragm: Tiny hiatal hernia, as noted with prior exam. Liver: Liver is mildly prominent with suggestion of mild fatty infiltration, as noted with prior exam. Gallbladder and biliary ducts: Normal. No calcified stones. No ductal dilation. Pancreas: Normal. No ductal dilation. Spleen: Normal. No splenomegaly. Adrenal glands: Normal. No mass. 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 No urinary tract stone or obstructive uropathy. Stomach and bowel: Generalized increased bowel gas, more prominent within large bowel, along with stool content within large bowel. There is some incomplete distension of the distal sigmoid colon. Findings are similar to prior exam. Likely component of ileus. No distinct evidence of bowel obstruction. Appendix: No evidence of appendicitis. Intraperitoneal space: No free fluid or ascites. No free air. Vasculature: Unremarkable. No abdominal aortic aneurysm. Lymph nodes: Unremarkable. No enlarged lymph nodes. Urinary bladder: Unremarkable as visualized. Reproductive: Unremarkable as visualized. Bones/joints: Degenerative change lumbar spine and visualized lower thoracic spine. No acute osseous abnormality. Soft tissues: Postsurgical changes near the midline ventral abdominal wall. Interval resolution of large hematoma/abscess in the midline infraumbilical ventral abdominal wall from prior exam. Residual mild soft tissue thickening in this region with small residual hypodense focus of fluid density in association with residual soft tissue density, measuring 34 x 15 mm on axial image 75 of series 4. This appears to extend to the skin surface. This could represent a combination of residual postsurgical and inflammatory changes. CT/CT abdomen pelvis w con* [id number] IMPRESSION: 1. Postsurgical changes midline ventral abdominal wall. Interval resolution of large hematoma or abscess within the midline infraumbilical ventral abdominal wall from prior exam, with mild residual soft tissue thickening in this region along with a small residual hypodense focus of fluid density of 34 x 15 mm appearing to extend to the skin surface. This could indicate residual changes associated with hematoma or inflammation. Overall improved appearance of the ventral abdominal wall from prior exam though. 2. Generalized increased bowel gas that appears more prominent within large bowel, similar to prior exam. 3. Other nonacute findings as noted with prior exam.
--- NOTE | 2024-01-22 16:07 | XRR_ITS ---
PROCEDURE INFORMATION: Exam: XR Chest Exam date and time: 01/22/2024 4:09 PM Age: 58 years old Clinical indication: Shortness of breath; Additional info: SOB TECHNIQUE: Imaging protocol: Radiologic exam of the chest. Views: 1 view. COMPARISON: CR XR chest 1V portable [id number] 11/03/2023 11:14 PM FINDINGS: Lungs: Mild left basilar atelectasis. No focal infiltrate or consolidation. Pleural spaces: No pleural effusion or pneumothorax. Heart/Mediastinum: No significant cardiomegaly. Bones/joints: Visualized osseous structures show no acute abnormality. XR/XR chest 1V portable [id number] IMPRESSION: Mild left basilar atelectasis. No acute findings otherwise.
[2024-01-22 16:08] LABS: Add Urine Microscopic? YES; Bacteria Urine TRACE /hpf; RBC Urine 0-4 /hpf (0-2); Squamous Epithelial Cell Urine 0-4 /hpf (0-5)
[2024-01-22] MEDS: iohexol 350 mg/mL 500 mL Btl (per mL) IV (16:56)
[2024-01-22 17:49] VITALS: BP 127/106; PULSE 98; O2SAT 90
[2024-01-22 18:13] VITALS: BP 127/106; PULSE 104; RESP 18; O2SAT 98
[2024-01-22 19:26] LABS: Adenovirus Not Detected (NOT DETECT); Chlamydia Pneumoniae Not Detected (NOT DETECT); Coronavirus 229E,HKU1,NL63,OC4 Not Detected (NOT DETECT); Human Metapneumovirus Not Detected (NOT DETECT); Human Rhinovirus/Enterovirus Not Detected (NOT DETECT); Influenza A Not Detected (NOT DETECT); Influenza A H1 Not Detected (NOT DETECT); Influenza A H1-2009 Not Detected (NOT DETECT); Influenza A H3 Not Detected (NOT DETECT); Influenza B Not Detected (NOT DETECT); Mycoplasma Pneumoniae Not Detected (NOT DETECT); Parainfluenza Virus Type 1 Not Detected (NOT DETECT); Parainfluenza Virus Type 2 Not Detected (NOT DETECT); Parainfluenza Virus Type 3 Not Detected (NOT DETECT); Parainfluenza Virus Type 4 Not Detected (NOT DETECT); Respiratory Syncytial Virus A Not Detected (NOT DETECT); Respiratory Syncytial Virus B Not Detected (NOT DETECT)
[2024-01-22 19:33] LABS: SARS-COV-2 Detected (NOT DETECT)
--- NOTE | 2024-01-22 19:55 | PC.NURSE ---
contacted patient re: positive covid results. Instructed pt to rest/ fluids if difficulties with breathing return to ER.
== END 2024-01-22 18:14 | disposition home or self-care (01) ==
PROVIDERS: Emergency Medicine; Physician Assistant; Emergency Provider Physician Assistant; PCP Family Medicine
DX: R14.2 Eructation (principal); R14.0 Abdominal distension (gaseous)
CPT/HCPCS: 36415; 71045; 74177; 80053; 81001; 83690; 85025; 87635; 97597; 97605; 99285; A6237; A6250

== ENCOUNTER → 2024-01-25 10:30 | Outpatient (BNVA) | payer MEDICARE, MEDICAID, SELFPAY ==
[2023-09-26 14:01] VITALS: BP 106/60; BMI 63.9
== END ==
PROVIDERS: PCP Family Medicine; Visit Provider Thoracic Surgery (Cardiothoracic Vascular Surgery)
DX: I96 Gangrene, not elsewhere classified (principal); T81.31XD Disruption of external operation (surgical) wound, not elsewhere classified, subsequent encounter; Y83.8 Other surgical procedures as the cause of abnormal reaction of the patient, or of later complication, without mention of misadventure at the time of the procedure
CPT/HCPCS: 97597; 97605; A6237; A6250

== ENCOUNTER → 2024-01-30 13:00 | Outpatient (BNVA) | payer MEDICARE, MEDICAID, SELFPAY ==
[2023-09-26 14:01] VITALS: BP 106/60; BMI 63.9
== END ==
PROVIDERS: PCP Family Medicine; Visit Provider Thoracic Surgery (Cardiothoracic Vascular Surgery)
DX: T81.31XD Disruption of external operation (surgical) wound, not elsewhere classified, subsequent encounter (principal); Y83.8 Other surgical procedures as the cause of abnormal reaction of the patient, or of later complication, without mention of misadventure at the time of the procedure
CPT/HCPCS: 97605; A6237; A6250

== ENCOUNTER → 2024-02-01 10:54 | Outpatient (BNVA) | payer MEDICARE, MEDICAID, SELFPAY ==
[2023-09-26 14:01] VITALS: BP 106/60; BMI 63.9
== END ==
PROVIDERS: PCP Family Medicine; Visit Provider Thoracic Surgery (Cardiothoracic Vascular Surgery)
DX: T81.31XD Disruption of external operation (surgical) wound, not elsewhere classified, subsequent encounter (principal); Y83.8 Other surgical procedures as the cause of abnormal reaction of the patient, or of later complication, without mention of misadventure at the time of the procedure
CPT/HCPCS: 97597; 97605; A6237; A6250

== ENCOUNTER → 2024-02-05 16:15 | Outpatient (BNVA) | payer MEDICARE, MEDICAID, SELFPAY ==
[2023-09-26 14:01] VITALS: BP 106/60; BMI 63.9
== END ==
PROVIDERS: PCP Family Medicine; Visit Provider Thoracic Surgery (Cardiothoracic Vascular Surgery)
DX: T81.31XD Disruption of external operation (surgical) wound, not elsewhere classified, subsequent encounter (principal); Y83.8 Other surgical procedures as the cause of abnormal reaction of the patient, or of later complication, without mention of misadventure at the time of the procedure; L98.492 Non-pressure chronic ulcer of skin of other sites with fat layer exposed
CPT/HCPCS: 97605; A6237; A6250

== ENCOUNTER → 2024-02-08 10:30 | Outpatient (BNVA) | payer MEDICARE, MEDICAID, SELFPAY ==
[2023-09-26 14:01] VITALS: BP 106/60; BMI 63.9
== END ==
PROVIDERS: PCP Family Medicine; Visit Provider Thoracic Surgery (Cardiothoracic Vascular Surgery)
DX: I96 Gangrene, not elsewhere classified (principal); T81.31XD Disruption of external operation (surgical) wound, not elsewhere classified, subsequent encounter; Y83.8 Other surgical procedures as the cause of abnormal reaction of the patient, or of later complication, without mention of misadventure at the time of the procedure
CPT/HCPCS: 97597; 97606; A6021; A6237; A6250

== ENCOUNTER → 2024-02-12 14:45 | Outpatient (BNVA) | payer MEDICARE, MEDICAID, SELFPAY ==
[2023-09-26 14:01] VITALS: BP 106/60; BMI 63.9
== END ==
PROVIDERS: PCP Family Medicine; Visit Provider Thoracic Surgery (Cardiothoracic Vascular Surgery)
DX: T81.31XD Disruption of external operation (surgical) wound, not elsewhere classified, subsequent encounter (principal); Y83.8 Other surgical procedures as the cause of abnormal reaction of the patient, or of later complication, without mention of misadventure at the time of the procedure
CPT/HCPCS: 99211; A6237; A6250

== ENCOUNTER → 2024-02-26 10:30 | Outpatient (BNVA) | payer MEDICARE, MEDICAID, SELFPAY ==
[2023-09-26 14:01] VITALS: BP 106/60; BMI 63.9
== END ==
PROVIDERS: PCP Family Medicine; Visit Provider Thoracic Surgery (Cardiothoracic Vascular Surgery)
DX: I96 Gangrene, not elsewhere classified (principal); T81.31XD Disruption of external operation (surgical) wound, not elsewhere classified, subsequent encounter; Y83.8 Other surgical procedures as the cause of abnormal reaction of the patient, or of later complication, without mention of misadventure at the time of the procedure
CPT/HCPCS: 97597

== ENCOUNTER → 2024-03-04 09:45 | Outpatient (BNVA) | payer MEDICARE, MEDICAID, SELFPAY ==
[2023-09-26 14:01] VITALS: BP 106/60; BMI 63.9
== END ==
PROVIDERS: PCP Family Medicine; Visit Provider Thoracic Surgery (Cardiothoracic Vascular Surgery)
DX: T81.31XD Disruption of external operation (surgical) wound, not elsewhere classified, subsequent encounter (principal); Y83.8 Other surgical procedures as the cause of abnormal reaction of the patient, or of later complication, without mention of misadventure at the time of the procedure; Z09 Encounter for follow-up examination after completed treatment for conditions other than malignant neoplasm
CPT/HCPCS: 97597

== ENCOUNTER → 2024-03-06 11:40 | Outpatient (BNVA) | payer MEDICARE, MEDICAID, SELFPAY ==
[2023-09-26 14:01] VITALS: BP 106/60; BMI 63.9
== END ==
PROVIDERS: PCP Family Medicine; Visit Provider Surgery
DX: R13.10 Dysphagia, unspecified (principal)
CPT/HCPCS: 99204; 99214

== ENCOUNTER 2024-03-11 08:08 | Outpatient (CLI) | payer MEDICARE, MEDICAID, SELFPAY ==
[2023-09-26 14:01] VITALS: BP 106/60; BMI 63.9
--- NOTE | 2024-03-11 08:30 | NM_ITS ---
WS: [id number] NUCLEAR MEDICINE GASTRIC EMPTYING EXAMINATION HISTORY: ABDOMINAL PAIN COMPARISON: CT abdomen 01/22/2024 TECHNIQUE: The patient ingested a meal containing 1.06 mCi of Tc 99m sulfur colloid mixed with eggs. The patient was placed in supine position and imaging over the abdomen was performed for a total of 9 0 minutes. Computer acquisition with the region of interest placed over the stomach to evaluate gastr ic emptying half-time. Good distention of the stomach with the radionuclide and food products. There is very little emptying if any from the stomach at 120 minutes. Gastric emptying is calculated at 26% at 103 minutes post in gestion of the meal. NM/[place] [id number] IMPRESSION: Significant gastroparesis. Estimated gastric emptying at 26%. Very little empty ing from the stomach at 103 minutes post ingestion of the meal.
== END 2024-03-11 08:09 | disposition home or self-care (01) ==
PROVIDERS: PCP Family Medicine; Visit Provider Family Medicine
DX: K31.84 Gastroparesis (principal); R10.9 Unspecified abdominal pain; R13.10 Dysphagia, unspecified; I96 Gangrene, not elsewhere classified; T81.31XD Disruption of external operation (surgical) wound, not elsewhere classified, subsequent encounter; Y83.8 Other surgical procedures as the cause of abnormal reaction of the patient, or of later complication, without mention of misadventure at the time of the procedure
CPT/HCPCS: 11042; 78264; A6021; A9541

== ENCOUNTER → 2024-04-03 09:15 | Outpatient (BNVA) | payer MEDICARE, SELFPAY ==
[2023-09-26 14:01] VITALS: BP 106/60; BMI 63.9
== END ==
PROVIDERS: PCP Family Medicine; Visit Provider Thoracic Surgery (Cardiothoracic Vascular Surgery)
DX: I96 Gangrene, not elsewhere classified (principal); T81.31XD Disruption of external operation (surgical) wound, not elsewhere classified, subsequent encounter; Y83.8 Other surgical procedures as the cause of abnormal reaction of the patient, or of later complication, without mention of misadventure at the time of the procedure
CPT/HCPCS: 11042; A6212

== ENCOUNTER → 2024-04-17 08:49 | Outpatient (BNVA) | payer MEDICARE, MEDICAID, SELFPAY ==
[2024-04-09 16:04] VITALS: BP 106/60; BMI 63.9
== END ==
PROVIDERS: PCP Family Medicine; Visit Provider Thoracic Surgery (Cardiothoracic Vascular Surgery)
DX: I96 Gangrene, not elsewhere classified (principal); T81.31XD Disruption of external operation (surgical) wound, not elsewhere classified, subsequent encounter; Y83.8 Other surgical procedures as the cause of abnormal reaction of the patient, or of later complication, without mention of misadventure at the time of the procedure
CPT/HCPCS: 97597; A6212

== ENCOUNTER → 2024-04-23 14:41 | Outpatient (BNVA) | payer MEDICARE, MEDICAID, SELFPAY ==
[2024-04-09 16:04] VITALS: BP 106/60; BMI 63.9
== END ==
DX: E03.9 Hypothyroidism, unspecified (principal); Z76.89 Persons encountering health services in other specified circumstances
CPT/HCPCS: 80053; 84439; 84443; 84481; 85025

== ENCOUNTER → 2024-05-01 10:29 | Outpatient (BNVA) | payer MEDICARE, MEDICAID, SELFPAY ==
[2024-04-09 16:04] VITALS: BP 106/60; BMI 63.9
== END ==
PROVIDERS: Visit Provider Surgery
DX: K31.84 Gastroparesis (principal); R03.0 Elevated blood-pressure reading, without diagnosis of hypertension
CPT/HCPCS: 99214

== ENCOUNTER → 2024-05-02 08:49 | Outpatient (BNVA) | payer MEDICARE, MEDICAID, SELFPAY ==
[2024-04-09 16:04] VITALS: BP 106/60; BMI 63.9
== END ==
PROVIDERS: Visit Provider Thoracic Surgery (Cardiothoracic Vascular Surgery)
DX: T81.31XD Disruption of external operation (surgical) wound, not elsewhere classified, subsequent encounter (principal); Y83.8 Other surgical procedures as the cause of abnormal reaction of the patient, or of later complication, without mention of misadventure at the time of the procedure
CPT/HCPCS: 11042; A6212

== ENCOUNTER 2024-11-29 10:27 | Outpatient (CLI) | payer OTHER, SELFPAY ==
[2024-04-09 16:04] VITALS: BP 106/60; BMI 63.9
--- NOTE | 2024-11-29 11:00 | MM_ITS ---
WS: [id number] Bilateral screening 3D tomosynthesis digital mammogram, 11/29/2024 10:39 AM Clinical Data: screening Comparison: 09/22/2022, 03/01/2022, 09/02/2021, 04/27/2020, 05/08/2018, 08/23/2016, 07/31/2015, 01/28/2015, 07/28/2014, 06/16/2014, 03/06/2013. Findings: No spiculated masses or clustered calcifications are seen. There are no secondary signs of carcinoma. MM/MM scr BI tomosynthesis [id number] Impression: Negative bilateral mammogram unchanged. Recommend annual screening mammograms. BIRADS: 1 - Negative. FOLLOW UP: 1 Year Follow-up DENSITY: There are scattered areas of fibroglandular density. The CAD wrapping checker was used
== END 2024-11-29 10:28 | disposition home or self-care (01) ==
LOC: RAD 10:28
DX: Z12.31 Encounter for screening mammogram for malignant neoplasm of breast (principal)
CPT/HCPCS: 77063; 77067